=== PATIENT | female | born 1955 | race African-American/Black ===

== ENCOUNTER → 2016-09-21 | Outpatient (CLI) | payer BC ==
[~2016-09-21] MED LIST: ALBUTEROL SULFATE 0.083% NEB 2.5 MG/3 ML AMPUL NEB ONE
[2016-09-21 09:23] LABS: ARTERIAL BLOOD O2 SATURATION 94.9 % (94-98)
--- NOTE | 2016-09-22 11:24 | PULMONARY FUNCTION TEST ---
DATE OF SERVICE: 09/21/2016 THE VITAL CAPACITY IS SLIGHTLY DECREASED. THE EXPIRATORY FLOW RATES ARE MODERATELY DECREASED. THE FEV1/VC IS 66%, PREDICTED: 83% LUNG VOLUMES BY NITROGEN WASH OUT METHOD SHOW: TLC IS 58% OF PREDICTED FRC IS 77% OF PREDICTED RV IS 42% OF PREDICTED THE DLCO IS 11.7, 45% OF PREDICTED. THE RV/TLC RATIO IS 27% PREDICTED 38% AFTER BRONCHODILATOR, EXPIRATORY FLOW RATES SHOW NO SIGNIFICANT CHANGE. IMPRESSION: GOOD PATIENT EFFORT. DESPITE THE DECREASE IN FEV1/VC, THE REDUCED LUNG VOLUMES INDICATE A MODERATE RESTRICTIVE DEFECT. DIFFUSING CAPACITY IS SEVERELY DECREASED. CC: MICHELE MORRIS MD > EDGARDO
== END ==
LOC: RT 07:38
PROVIDERS: ATTEND Internal Medicine Pulmonary Disease
DX: R06.02 Shortness of breath (principal)
CPT/HCPCS: 36600; 82803; 94060; 94640; 94727; 94729; 94760

== ENCOUNTER → 2017-02-02 | Outpatient (CLI) | payer BC ==
--- NOTE | 2017-02-02 15:58 | RADIOLOGY REPORT (SQ) ---
EXAM DESCRIPTION: U/S THYROID/SFT TISS HD NECK COMPLETED DATE/TIME: 02/02/2017 2:12 pm REASON FOR STUDY: GOITER (E04.9) E04.9 NONTOXIC GOITER, UNSPECIFIED COMPARISON: Thyroid ultrasound 03/12/2008, 05/05/2016 CT chest 07/14/2015, 10/04/2015 TECHNIQUE: Dynamic and static villafuerte-scale images acquired of the thyroid gland. Selected additional c olor/power Doppler images recorded. All images stored to PACS. LIMITATIONS: None. FINDINGS: RIGHT LOBE: 5.5 cm in greatest length. Homogeneous echotexture. 1.3 x 1.1 cm upper pole colloid cyst. 1.4 x 1.2 cm lower pole colloid cyst. These are similar compared to studies dating to 2007 LEFT LOBE: 4.9 cm in greatest length. Homogeneous echotexture. 1.4 x 1.2 cm left lower pole nodule unchanged from 2007. 7 mm lower pole nodule unchanged from 2007. ISTHMUS: Normal size. Homogeneous echotexture. No cystic or solid masses. OTHER: No other significant finding. IMPRESSION: Stable right lobe thyroid colloid cysts and left lobe thyroid nodules. TECHNICAL DOCUMENTATION: JOB ID: [id number] [employer]- All Rights Reserved
== END ==
LOC: RAD 12:50
PROVIDERS: ATTEND Family Medicine
DX: E04.9 Nontoxic goiter, unspecified (principal)
CPT/HCPCS: 76536

== ENCOUNTER 2017-07-10 17:00 | Inpatient (IN) | payer BC ==
[2017-07-10] MEDS ORDERED: ACETAMINOPHEN 325 MG TABLET PO ONE (17:41)
[2017-07-10] MEDS ORDERED: NORMAL SALINE 1000 ML 1,000 ML IV ONE (17:41)
[2017-07-10] MEDS ORDERED: PIPERACILLIN/TAZOBACTAM 4.5 GM VIAL IV ONE (17:42)
--- NOTE | 2017-07-10 17:44 | ER Document Report ---
ED Medical Screen (RME) - General Chief Complaint: Fever Stated Complaint: FEVER AND WEAKNESS Time Seen by Provider: 07/10/17 17:41 Notes: one day of fever, cough, sob, halluc/ams. pt on cpap at home. nml sat for her is 90-94 per TRAVEL OUTSIDE OF THE [place] IN LAST 30 DAYS: No - Related Data Allergies/Adverse Reactions: Iodinated Contrast- Oral and IV Dye [Iodinated Contrast Media - IV Dye] Allergy (Severe, Verified 04/28/16 12:20) Chest pain pregabalin [From Lyrica] Allergy (Verified 11/18/15 01:46) trazodone [Trazodone] Allergy (Verified 11/18/15 01:46) bee sting Allergy (Uncoded 10/04/15 00:38) Past Medical History - Past Medical History Cardiac Medical History: Reports: Hx Hypertension Pulmonary Medical History: Reports: Hx Asthma, Hx COPD Endocrine Medical History: Reports: Hx Diabetes Mellitus Type 2 Renal/ Medical History: Denies: Hx Peritoneal Dialysis Psychiatric Medical History: Reports: Hx Depression Past Surgical History: Reports: Hx Breast Surgery - Immunizations Hx Diphtheria, Pertussis, Tetanus Vaccination: Yes Physical Exam - Vital signs Vitals: Temp Pulse Resp BP Pulse Ox 103.0 F H 102 H 20 117/43 L 88 L 07/10/17 17:20 07/10/17 17:20 07/10/17 17:20 07/10/17 17:20 07/10/17 17:20 Course - Vital Signs Vital signs: Temp Pulse Resp BP Pulse Ox 103.0 F H 102 H 20 117/43 L 88 L 07/10/17 17:20 07/10/17 17:20 07/10/17 17:20 07/10/17 17:20 07/10/17 17:20
--- NOTE | 2017-07-10 18:51 | ER Document Report ---
ED Fever - General Chief Complaint: Fever Stated Complaint: FEVER AND WEAKNESS Time Seen by Provider: 07/10/17 17:41 Mode of Arrival: Ambulatory Information source: Patient, Relative TRAVEL OUTSIDE OF THE [place] IN LAST 30 DAYS: No - HPI Patient complains to provider of: Fever, body aches, cough cold congestion, shortness of breath Onset: Other - 4-5 days Onset/Duration: Persistent Quality of pain: Achy Severity: Moderate Pain Level: 3 Context: Congestion, Cough Associated symptoms: Body/muscle aches, Chills, Nonproductive cough, Earache, Fever, Headache, Shortness of breath, Sore throat, Weakness Similar symptoms previously: Yes Recently seen / treated by doctor: Yes Notes: Patient is a 61-year-old female with multiple medical problems, presenting to the emergency room today complaining of fever, chills, body aches, shortness of breath with nonproductive cough, congestion, headache, sore throat, earache, symptoms have been going on for the past 4-5 days, she recently had a Simponi infusion for rheumatoid arthritis, she denies any sick contacts, no recent traveling, no chest pain, no abdominal pain, no nausea, vomiting or diarrhea, states she was tested for the flu 3 days ago and it was negative - Related Data Allergies/Adverse Reactions: Iodinated Contrast- Oral and IV Dye [Iodinated Contrast Media - IV Dye] Allergy (Severe, Verified 07/10/17 17:51) Chest pain pregabalin [From Lyrica] Allergy (Verified 07/10/17 17:51) trazodone [Trazodone] Allergy (Verified 07/10/17 17:51) bee sting Allergy (Uncoded 07/10/17 17:51) Home Medications: Current Home Medications Estrogens,Conjugated [Premarin 0.3 mg Tablet] 0.3 mg PO QHS 07/10/17 [History] Norethindrone Acetate [Aygestin 5 mg Tablet] 7.5 mg PO QHS 07/10/17 [History] Olmesartan Medoxomil [Benicar] 40 mg PO QAM 07/10/17 [History] Omeprazole 40 mg PO QAM 07/10/17 [History] Oxycodone HCl [Oxycontin Sr 10 mg Tablet] 10 mg PO Q12 07/10/17 [History] Oxycodone HCl/Acetaminophen [Oxycodone-Acetaminophen 10-325] 1 each PO Q6H PRN 07/10/17 [History] Past Medical History - General Information source: Patient - Social History Smoking Status: Former Smoker Frequency of alcohol use: None Drug Abuse: None Family History: Reviewed & Not Pertinent Patient has suicidal ideation: No Patient has homicidal ideation: No - Past Medical History Cardiac Medical History: Reports: Hx Hypertension Pulmonary Medical History: Reports: Hx Asthma, Hx COPD Endocrine Medical History: Reports: Hx Diabetes Mellitus Type 2 Renal/ Medical History: Denies: Hx Peritoneal Dialysis Psychiatric Medical History: Reports: Hx Depression Past Surgical History: Reports: Hx Breast Surgery - Immunizations Hx Diphtheria, Pertussis, Tetanus Vaccination: Yes Review of Systems - Review of Systems Constitutional: See HPI EENT: See HPI Cardiovascular: No symptoms reported Respiratory: See HPI Gastrointestinal: No symptoms reported Genitourinary: No symptoms reported Female Genitourinary: No symptoms reported Musculoskeletal: See HPI Skin: No symptoms reported Hematologic/Lymphatic: No symptoms reported Neurological/Psychological: See HPI -: Yes All other systems reviewed and negative Physical Exam - Vital signs Vitals: Temp Pulse Resp BP Pulse Ox 103.0 F H 102 H 20 117/43 L 88 L 07/10/17 17:20 07/10/17 17:20 07/10/17 17:20 07/10/17 17:20 07/10/17 17:20 Interpretation: Tachycardic, Hypoxic, Febrile - General General appearance: Alert In distress: Mild - HEENT Head: Normocephalic, Atraumatic Eyes: Normal Conjunctiva: Normal Eyelashes: Normal Pupils: PERRL Ears: Normal External canal: Normal Tympanic membrane: Normal Pharynx: Normal Neck: Normal - Respiratory Respiratory status: No respiratory distress Chest status: Nontender Breath sounds: Nonproductive cough, Wheezing Chest palpation: Normal - Cardiovascular Rhythm: Regular Heart sounds: Normal auscultation Murmur: No - Abdominal Inspection: Obese Distension: No distension Bowel sounds: Normal Tenderness: Nontender Organomegaly: No organomegaly - Back Back: Normal, Nontender - Extremities General upper extremity: Normal inspection, Nontender, Normal color, Normal ROM , Normal temperature General lower extremity: Normal inspection, Nontender, Normal color, Normal ROM , Normal temperature, Normal weight bearing. No: Joel's sign - Neurological Neuro grossly intact: Yes Cognition: Confused Orientation: Disoriented to events [place] Coma Scale Eye Opening: Spontaneous [place] Coma Scale Verbal: Confused [place] Coma Scale Motor: Obeys Commands [place] Coma Scale Total: 14 Speech: Normal Motor strength normal: LUE, RUE, LLE, RLE Sensory: Normal - Psychological Associated symptoms: Normal affect, Normal mood - Skin Skin Temperature: Warm Skin Moisture: Dry Skin Color: Normal Course - Re-evaluation Re-evalutation: 07/11/17 01:42 Patient with leukocytosis, acute renal insufficiency, hypokalemia, signs of urinary tract infection, discussed with primary care provider who agrees to admit for further evaluation and treatment - Vital Signs Vital signs: Temp Pulse Resp BP Pulse Ox 103.0 F H 102 H 18 111/93 H 98 07/10/17 17:20 07/10/17 17:20 07/11/17 01:15 07/11/17 01:15 07/11/17 01:15 - Laboratory Result Diagrams: 07/10/17 18:45 07/10/17 18:45 Laboratory results interpreted by me: 07/10/17 07/10/17 07/10/17 18:45 18:45 20:48 WBC 21.0 H RBC 3.06 L Hgb 9.1 L Hct 27.1 L RDW 16.3 H Seg Neutrophils % 81.3 H Lymphocytes % 8.5 L Absolute Neutrophils 17.1 H Absolute Monocytes 2.0 H Sodium 134.4 L Potassium 2.5 L* Chloride 97 L BUN 40 H Creatinine 2.39 H Est GFR ( Amer) 25 L Est GFR (Non-Af Amer) 20 L Glucose 150 H Calcium 7.8 L Total Bilirubin 1.4 H Direct Bilirubin 1.1 H AST 38 H Alkaline Phosphatase 163 H Albumin 3.1 L Urine Protein 100 H Urine Blood MODERATE H Urine Urobilinogen 4.0 H Ur Leukocyte Esterase LARGE H - Diagnostic Test Radiology reviewed: Image reviewed, Reports reviewed - EKG Interpretation by Me EKG shows normal: Sinus rhythm Rate: Normal Rhythm: NSR - Transfer of Care Care transferred to following provider: Dr. Perea Critical Care Note - Critical Care Note Total time excluding time spent on procedures (mins): 40 Comments: Patient with tachycardia, confusion, febrile, profound leukocytosis, hypokalemia and acute renal failure with signs of sepsis, admitted to IMCU for further evaluation and treatment Discharge - Discharge Clinical Impression: Acute renal insufficiency, Hypokalemia Urinary tract infection Qualifiers: Urinary tract infection type: site unspecified Hematuria presence: without hematuria Qualified Code(s): N39.0 - Urinary tract infection, site not specified Sepsis Qualifiers: Sepsis type: sepsis due to unspecified organism Qualified Code(s): A41.9 - Sepsis, unspecified organism Condition: Fair Disposition: ADMITTED INPATIENT Admitting Provider: [facility] Unit Admitted: [facility]
[2017-07-10 19:13] LABS: VENOUS BLOOD BASE EXCESS -0.1 mmol/L; VENOUS BLOOD PCO2 47.1 mmHg (35-63); VENOUS BLOOD PH 7.36 (7.30-7.42)
[2017-07-10 19:27] LABS: ABSOLUTE BASOPHILS # (AUTO) 0.1 10^3/uL (0.0-0.2); ABSOLUTE EOSINOPHILS # (AUTO) 0.1 10^3/uL (0.0-0.6); ABSOLUTE LYMPHOCYTES (AUTO) 1.8 10^3/uL (0.5-4.7); ABSOLUTE NEUT (AUTO) 17.1 10^3/uL (1.7-8.2); BASOPHILS % (AUTO) 0.3 % (0-2); EOSINOPHILS % (AUTO) 0.5 % (0-6); HEMATOCRIT 27.1 % (36.0-47.0); HEMOGLOBIN 9.1 g/dL (12.0-15.5); HGB HCT DIFFERENCE 0.2; LYMPHOCYTES % (AUTO) 8.5 % (13-45); MEAN CORPUSCULAR HEMOGLOBIN 29.9 pg (27.0-33.4); MEAN CORPUSCULAR HGB CONC 33.7 g/dL (32.0-36.0); MEAN CORPUSCULAR VOLUME 89 fl (80-97); MONOCYTES % (AUTO) 9.4 % (3-13); RED BLOOD COUNT 3.06 10^6/uL (3.72-5.28); RED CELL DISTRIBUTION WIDTH 16.3 % (11.5-14.0); SEGMENTED NEUTROPHILS % (AUTO) 81.3 % (42-78)
[2017-07-10 19:42] LABS: ALANINE AMINOTRANSFERASE 31 U/L (9-52); ALBUMIN 3.1 g/dL (3.5-5.0); ALKALINE PHOSPHATASE 163 U/L (38-126); ANION GAP 12 (5-19); ASPARTATE AMINO TRANSFERASE 38 U/L (14-36); BILIRUBIN,DIRECT 1.1 mg/dL (0.0-0.4); BILIRUBIN,TOTAL 1.4 mg/dL (0.2-1.3); BLOOD UREA NITROGEN 40 mg/dL (7-20); CALCIUM 7.8 mg/dL (8.4-10.2); CARBON DIOXIDE 25 mmol/L (22-30); CHLORIDE 97 mmol/L (98-107); CREATININE RESULT 2.39 mg/dL (0.52-1.25); GLUCOSE 150 mg/dL (75-110); SODIUM 134.4 mmol/L (137-145); TOTAL PROTEIN 6.5 g/dL (6.3-8.2)
--- NOTE | 2017-07-10 19:42 | RADIOLOGY REPORT (SQ) ---
EXAM DESCRIPTION: CHEST SINGLE VIEW COMPLETED DATE/TIME: 07/10/2017 7:35 pm REASON FOR STUDY: cough/fever COMPARISON: 04/26/2016 EXAM PARAMETERS: NUMBER OF VIEWS: One view. TECHNIQUE: Single frontal radiographic view of the chest acquired. RADIATION DOSE: NA LIMITATIONS: None. FINDINGS: LUNGS AND PLEURA: No opacities, masses or pneumothorax. No pleural effusion. MEDIASTINUM AND HILAR STRUCTURES: No masses. Contour normal. HEART AND VASCULAR STRUCTURES: Heart normal in size. Normal vasculature. BONES: No acute findings. HARDWARE: None in the chest. OTHER: No other significant finding. IMPRESSION: NO ACUTE RADIOGRAPHIC FINDING IN THE CHEST. TECHNICAL DOCUMENTATION: JOB ID: [id number] [employer]- All Rights Reserved
[2017-07-10 19:45] LABS: POTASSIUM 2.5 mmol/L (3.6-5.0)
[2017-07-10] MEDS: POTASSI CL 20 MEQ/50 ML RIDER 20 MEQ/50 ML RTUPB IV SCH ×2 (20:54→22:43)
[2017-07-10 21:07] LABS: AMORPHOUS SEDIMENT,URINE TRACE /HPF; APPEARANCE,URINE CLOUDY; BILIRUBIN,URINE NEGATIVE (NEGATIVE); GLUCOSE, URINE NEGATIVE (NEGATIVE); KETONES,URINE NEGATIVE (NEGATIVE); LEUKOCYTE ESTERASE,URINE LARGE (NEGATIVE); NITRITE,URINE NEGATIVE (NEGATIVE); PROTEIN,URINE 100 mg/dL (NEGATIVE); URINE SPECIFIC GRAVITY 1.013
[2017-07-10] MEDS ORDERED: CEFEPIME 1 GM/D5W RTU 1 GM/50 ML RTUPB IV ONE (22:04)
[2017-07-10] MEDS ORDERED: MAG HYDROX/AL HYDROX/SIMETH SUSP 30 ML UDCUP PO PRN (22:21)
[2017-07-10] MEDS ORDERED: IPRATROPIUM/ALBUTEROL 0.5-2.5 MG/3 ML AMPUL NEB PRN (22:21)
[2017-07-10] MEDS ORDERED: ONDANSETRON HCL INJ/PF 4 MG/2 ML SDV IV PRN (22:21)
[2017-07-10] MEDS ORDERED: DEXTROSE 40% GEL 15 GM TUBE PO PRN ×2 (22:26)
[2017-07-10] MEDS ORDERED: DEXTROSE 50%-WATER 25 GM/50 ML DISP.SYRIN IV PRN ×2 (22:26)
[2017-07-10] MEDS ORDERED: GLUCAGON,HUMAN RECOMB 1 MG INJ IM PRN (22:26)
[2017-07-10] MEDS ORDERED: INSULIN LISPRO 100 UNIT/ML 3 ML VIAL SUBCUT PRN (22:26)
[2017-07-10] MEDS ORDERED: POTASSIUM CHLORIDE 10 MEQ TABLET.SA PO ONE (22:29)
[2017-07-10] MEDS ORDERED: VANCOMYCIN HCL 0 MG in DEXTROSE 5%-WATER 250 ML IV NR (22:30)
[2017-07-10] MEDS ORDERED: VANCOMYCIN HCL 1,000 MG in DEXTROSE 5%-WATER 250 ML IV ONE (23:30)
--- NOTE | 2017-07-11 00:59 | RADIOLOGY REPORT (SQ) ---
EXAM DESCRIPTION: U/S ABDOMEN LIMITED W/O DOP COMPLETED DATE/TIME: 07/11/2017 12:34 am REASON FOR STUDY: pain COMPARISON: CT, 02/26/2016. MRI abdomen, 01/15/2016. TECHNIQUE: Dynamic and static grayscale images acquired of the abdomen and recorded on PACS. Additio nal selected color Doppler and spectral images recorded. LIMITATIONS: None. FINDINGS: PANCREAS: No masses. Visualized pancreatic duct normal caliber. LIVER: 21 cm mild hepatomegaly. Likely benign liver cysts measure up to 3.1 cm in 1.6 cm, not defini tively characterize ; no suspicious interval change compared with prior CT and MR examinations from 2 016. LIVER VASCULATURE: Normal directional flow of the main portal vein and hepatic veins. GALLBLADDER: No stones. Normal wall thickness. No pericholecystic fluid. ULTRASOUND-DETECTED ARGUETA'S SIGN: Negative. INTRAHEPATIC DUCTS AND COMMON DUCT: CBD and intrahepatic ducts normal caliber. No filling defects. INFERIOR VENA CAVA: Normal flow. AORTA: No aneurysm. RIGHT KIDNEY: Normal size. Normal echogenicity. No solid or suspicious masses. No hydronephrosis. No calcifications. PERITONEAL AND RIGHT PLEURAL SPACE: No ascites or effusions. OTHER: No other significant findings. IMPRESSION: No acute findings. TECHNICAL DOCUMENTATION: JOB ID: [id number] [employer]- All Rights Reserved
[2017-07-11] MEDS ORDERED: VANCOMYCIN HCL INJ 1000 MG VIAL ONE (01:17)
[2017-07-11] MEDS: POTASSI CL 40 MEQ/NS 1L 1,000 ML IV PRN ×3 (02:15→18:47)
[2017-07-11 05:37] LABS: HEMATOCRIT 26.8 % (36.0-47.0); HGB HCT DIFFERENCE 0.2; MEAN CORPUSCULAR HEMOGLOBIN 30.1 pg (27.0-33.4); MEAN CORPUSCULAR HGB CONC 33.4 g/dL (32.0-36.0); MEAN CORPUSCULAR VOLUME 90 fl (80-97); RED BLOOD COUNT 2.98 10^6/uL (3.72-5.28); RED CELL DISTRIBUTION WIDTH 17.1 % (11.5-14.0)
[2017-07-11 06:22] LABS: BASOPHILS % (MANUAL) 0 % (0-2); EOSINOPHILS % (MANUAL) 2 % (0-6); LYMPHOCYTES % (MANUAL) 8 % (13-45); TOTAL CELLS COUNTED 100
[2017-07-11 06:24] LABS: ANISOCYTOSIS 1+; HYPOCHROMASIA SLIGHT; TOXIC GRANULATION SLIGHT; TOXIC VACUOLATION PRESENT
[2017-07-11] MEDS: LANSOPRAZOLE 15 MG TAB.RAP.DR PO SCH ×2 (06:30→17:09)
[2017-07-11] MEDS: HEPARIN SOD (PORCINE) 5,000 UNIT/ML 1 ML SYRINGE SUBCUT SCH ×3 (06:31→22:21)
[2017-07-11 07:05] LABS: ALANINE AMINOTRANSFERASE 44 U/L (9-52); ALBUMIN 2.8 g/dL (3.5-5.0); ALKALINE PHOSPHATASE 151 U/L (38-126); ANION GAP 14 (5-19); ASPARTATE AMINO TRANSFERASE 39 U/L (14-36); BILIRUBIN,DIRECT 1.3 mg/dL (0.0-0.4); BILIRUBIN,TOTAL 1.4 mg/dL (0.2-1.3); BLOOD UREA NITROGEN 39 mg/dL (7-20); CALCIUM 7.2 mg/dL (8.4-10.2); CARBON DIOXIDE 22 mmol/L (22-30); CHLORIDE 105 mmol/L (98-107); CREATININE RESULT 2.24 mg/dL (0.52-1.25); GLUCOSE 115 mg/dL (75-110); MAGNESIUM 2.5 mg/dL (1.6-2.3); SODIUM 140.7 mmol/L (137-145); TOTAL PROTEIN 5.5 g/dL (6.3-8.2)
[2017-07-11 07:18] LABS: POTASSIUM 3.6 mmol/L (3.6-5.0)
--- NOTE | 2017-07-11 07:58 | EKG REPORT ---
SEVERITY:- BORDERLINE ECG - SINUS RHYTHM BORDERLINE PROLONGED QT INTERVAL : Confirmed by: Misael Coleman MD 11-Jul-2017 07:58:03
[2017-07-11] MEDS ORDERED: (PENDING PHARMACY ID) (Olmesartan Medoxomil [Benicar] 40 MG) PO SCH (08:00)
[2017-07-11] MEDS: LOSARTAN POTASSIUM 50 MG TABLET PO SCH (08:17)
[2017-07-11] MEDS: OXYCODONE-ACETAMINOPHEN 5-325 MG TABLET PO PRN ×2 (09:04→22:24)
[2017-07-11 09:43] LABS: FOLATE > 20.00 ng/mL (>2.76)
[2017-07-11] MEDS: CEFEPIME 2 GM/D5W RTU 2 GM/50 ML RTUPB IV SCH (09:53)
[2017-07-11] MEDS: CLOPIDOGREL BISULFATE 75 MG TABLET PO SCH (09:54)
[2017-07-11] MEDS: AMLODIPINE BESYLATE 5 MG TABLET PO SCH ×2 (09:54→10:14)
[2017-07-11] MEDS: FLUOXETINE HCL 20 MG CAPSULE PO SCH (09:55)
[2017-07-11] MEDS: DOCUSATE SODIUM 100 MG CAPSULE PO SCH (09:55)
[2017-07-11] MEDS ORDERED: CEFEPIME 2 GM/D5W RTU 2 GM/50 ML RTUPB IV SCH (10:00)
[2017-07-11] MEDS ORDERED: FLUOXETINE HCL PO SCH (10:00)
--- NOTE | 2017-07-11 10:30 | PDOC H&P ---
History of Present Illness Admission Date/PCP: 07/10/17 22:21 JUSTINE LANDAVERDE MD Patient complains of: Fever and chills History of Present Illness: TOMMY LUEVANO is a 61 year old female This 61-year-old female with a significant history of rheumatoid arthritis and multiple joint issueAnd patient is currently taking the Simponi injections per Dr. Rice the rheumatologistAnd injection was given the 4 days backAccording to the the patient started feeling weak and the patient started developing the fever and chills and nonproductive coughAnd in the emergency departments patient's blood count was elevated up to 21,000 and patient have a fever 103 and patient will most likely urosepsisPatient received the broad- spectrum IV antibiotic and admitting in the IMCU When I saw the patient is alert awake oriented 3 and in no distress patient's denied any chest pain denied any shortness of the breath Patient initial blood culture and urine culture both positive for gram-negative organism Patient have a significant history of the asthma COPD and also have ongoing problem with this joint in the muscles which patients failed for the methotrexate and Humira injections in the recently started this new medicine simponi Patient's otherwise denied any other complaints Past Medical History Cardiac Medical History: Reports: Hypertension Pulmonary Medical History: Reports: Asthma, Chronic Obstructive Pulmonary Disease (COPD) Endocrine Medical History: Reports: Diabetes Mellitus Type 2 GI Medical History: Reports: Gastroesophageal Reflux Disease Musculoskeltal Medical History: Reports: Arthritis, Other Musculoskeletal History Note: Rheumatoid arthritis Psychiatric Medical History: Reports: Depression Social History Smoking Status: Former Smoker Frequency of Alcohol Use: None Hx Recreational Drug Use: No Hx Prescription Drug Abuse: No Family History Family History: Reviewed & Not Pertinent Parental Family History Reviewed: Yes Children Family History Reviewed: Yes Sibling(s) Family History Reviewed.: Yes Medication/Allergy Home Medications: Fluoxetine HCl [Prozac] 1 cap PO DAILY 07/10/15 Amlodipine Besylate [Norvasc 5 mg Tablet] 5 mg PO Q12 #60 tablet 07/20/15 Aspirin [Ecotrin 81 mg EC Tablet] 81 mg PO DAILY #0 tabec 11/20/15 Atorvastatin Calcium [Lipitor 20 mg Tablet] 20 mg PO QHS #30 tablet 11/20/15 Clopidogrel Bisulfate [Plavix 75 mg Tablet] 75 mg PO DAILY #30 tablet 11/20/15 Gabapentin 600 mg PO TID #0 tablet 11/20/15 Hydrochlorothiazide 12.5 mg PO DAILY #30 tablet 11/20/15 Estrogens,Conjugated [Premarin 0.3 mg Tablet] 0.3 mg PO QHS 07/10/17 Norethindrone Acetate [Aygestin 5 mg Tablet] 7.5 mg PO QHS 07/10/17 Olmesartan Medoxomil [Benicar] 40 mg PO QAM 07/10/17 Omeprazole 40 mg PO QAM 07/10/17 Oxycodone HCl [Oxycontin Sr 10 mg Tablet] 10 mg PO Q12 07/10/17 Oxycodone HCl/Acetaminophen [Oxycodone-Acetaminophen 10-325] 1 each PO Q6H PRN 07/10/17 Albuterol Sulfate [Proair Hfa Inhalation Aerosol 8.5 gm Mdi] 1 puff IH Q4 PRN Temazepam [Restoril 7.5 mg Capsule] 7.5 mg PO HSP PRN 07/11/17 Umeclidinium Hinckley [Incruse Ellipta] 62.5 mcg IH DAILY PRN 07/11/17 Allergies/Adverse Reactions: Iodinated Contrast- Oral and IV Dye [Iodinated Contrast Media - IV Dye] Allergy (Severe, Verified 07/10/17 17:51) Chest pain pregabalin [From Lyrica] Allergy (Verified 07/10/17 17:51) trazodone [Trazodone] Allergy (Verified 07/10/17 17:51) bee sting Allergy (Uncoded 07/10/17 17:51) Review of Systems Constitutional: PRESENT: anorexia, chills, fatigue, night sweats, weakness. ABSENT: fever(s), headache(s), weight gain, weight loss Eyes: ABSENT: visual disturbances Ears: ABSENT: hearing changes Cardiovascular: ABSENT: chest pain, dyspnea on exertion, edema, orthropnea, palpitations Respiratory: PRESENT: cough. ABSENT: hemoptysis Gastrointestinal: PRESENT: abdominal pain. ABSENT: constipation, diarrhea, hematemesis, hematochezia, nausea, vomiting Genitourinary: ABSENT: dysuria, hematuria Musculoskeletal: PRESENT: joint swelling, muscle weakness Integumentary: ABSENT: rash, wounds Neurological: ABSENT: abnormal gait, abnormal speech, confusion, dizziness, focal weakness, syncope Psychiatric: ABSENT: anxiety, depression, homidical ideation, suicidal ideation Endocrine: ABSENT: cold intolerance, heat intolerance, menstrual abnormalities, polydipsia, polyuria Hematologic/Lymphatic: ABSENT: easy bleeding, easy bruising, lymphadenopathy Physical Exam Vital Signs: Temp Pulse Resp BP Pulse Ox 98.7 F 102 H 28 H 119/56 L 97 07/11/17 06:42 07/10/17 17:20 07/11/17 10:06 07/11/17 10:06 07/11/17 10:06 General appearance: PRESENT: no acute distress, well-developed, well-nourished Head exam: PRESENT: atraumatic, normocephalic Eye exam: PRESENT: conjunctiva pink, EOMI, PERRLA. ABSENT: scleral icterus Ear exam: PRESENT: normal external ear exam Mouth exam: PRESENT: moist, tongue midline Neck exam: PRESENT: full ROM. ABSENT: carotid bruit, JVD, lymphadenopathy, thyromegaly Respiratory exam: PRESENT: clear to auscultation carmencita Cardiovascular exam: PRESENT: RRR. ABSENT: diastolic murmur, rubs, systolic murmur Pulses: PRESENT: normal dorsalis pedis pul, +2 pedal pulses bilateral Vascular exam: PRESENT: normal capillary refill GI/Abdominal exam: PRESENT: normal bowel sounds, soft. ABSENT: distended, guarding, mass, organolmegaly, rebound, tenderness Rectal exam: PRESENT: deferred Extremities exam: ABSENT: full ROM, left AKA, right AKA, left BKA, right BKA, calf tenderness, joint swelling, tenderness, other Neurological exam: PRESENT: alert, awake, oriented to person, oriented to place , oriented to time, oriented to situation, CN II-XII grossly intact. ABSENT: motor sensory deficit Psychiatric exam: PRESENT: appropriate affect, depressed, normal mood. ABSENT: homicidal ideation, suicidal ideation Skin exam: PRESENT: dry, intact, warm. ABSENT: cyanosis, rash Results Laboratory Results: 07/11/17 05:20 07/11/17 06:40 07/10/17 07/11/17 07/11/17 23:07 05:20 06:40 WBC 20.0 H RBC 2.98 L Hgb 9.0 L Hct 26.8 L MCV 90 MCH 30.1 MCHC 33.4 RDW 17.1 H Plt Count 186 Seg Neutrophils % Not Reportable Lymphocytes % Not Reportable Monocytes % Not Reportable Eosinophils % Not Reportable Basophils % Not Reportable Absolute Neutrophils Not Reportable Absolute Lymphocytes Not Reportable Absolute Monocytes Not Reportable Absolute Eosinophils Not Reportable Absolute Basophils Not Reportable Retic Count (auto) Absolute Retic Sodium 140.7 Potassium 3.6 D Chloride 105 Carbon Dioxide 22 Anion Gap 14 BUN 39 H Creatinine 2.24 H Est GFR ( Amer) 27 L Est GFR (Non-Af Amer) 22 L Glucose 115 H Lactic Acid 0.7 Calcium 7.2 L Magnesium 2.5 H Iron TIBC % Saturation Ferritin Total Bilirubin 1.4 H AST 39 H ALT 44 Alkaline Phosphatase 151 H Total Protein 5.5 L Albumin 2.8 L Vitamin B12 Folate 07/11/17 07/11/17 06:40 06:40 WBC RBC Hgb Hct MCV MCH MCHC RDW Plt Count Seg Neutrophils % Lymphocytes % Monocytes % Eosinophils % Basophils % Absolute Neutrophils Absolute Lymphocytes Absolute Monocytes Absolute Eosinophils Absolute Basophils Retic Count (auto) 0.22 L Absolute Retic 0.007 L Sodium Potassium Chloride Carbon Dioxide Anion Gap BUN Creatinine Est GFR ( Amer) Est GFR (Non-Af Amer) Glucose Lactic Acid Calcium Magnesium Iron 15.2 L TIBC 221 L % Saturation 7 Ferritin 324.00 H Total Bilirubin AST ALT Alkaline Phosphatase Total Protein Albumin Vitamin B12 977.0 H Folate > 20.00 Impressions: Chest X-Ray 07/10/17 17:41 IMPRESSION: NO ACUTE RADIOGRAPHIC FINDING IN THE CHEST. Abdomen Ultrasound 07/10/17 20:26 IMPRESSION: No acute findings. Assessment & Plan - Diagnosis (1) Gram negative sepsis Is this a current diagnosis for this admission?: Yes Plan: Most likely from urinary tract infections will start the patient on the broad- spectrum antibiotics and wait for the culture and sensitivity continues to IV fluid (2) Urinary tract bacterial infections Is this a current diagnosis for this admission?: Yes Plan: Start the patient on the broad-spectrum IV antibiotic but the Marquez catheter (3) Chronic obstructive pulmonary disease Is this a current diagnosis for this admission?: Yes Plan: Continues to DuoNeb nebulizer (4) Rheumatoid arthritis Qualifiers: Laterality: unspecified laterality Is this a current diagnosis for this admission?: Yes Plan: Patient's currently follow with the manager print and currently the Simponi injections (5) Anemia Qualifiers: Anemia type: other cause Is this a current diagnosis for this admission?: Yes Plan: Due to the chronic disease from rheumatoid arthritis we will get the iron study (6) Acute renal insufficiency Is this a current diagnosis for this admission?: Yes Plan: Most likely due to the dehydration and the sepsis continues to IV fluid (7) Hypokalemia Is this a current diagnosis for this admission?: Yes Plan: Replace the potassium (8) Hypertension Qualifiers: Hypertension type: essential hypertension Qualified Code(s): I10 - Essential (primary) hypertension Is this a current diagnosis for this admission?: Yes Plan: Currently all stable - Time Time Spent: 50 to 70 Minutes Medications reviewed and adjusted accordingly: Yes Anticipated discharge: Home Within: Other - Inpatient Certification Medical Necessity: Need Close Monitoring Due to Risk of Patient Decompensation, Need For IV Fluids, Need for IV Antibiotics Post Hospital Care: D/C Engineering Director Documentation - Plan Summary Plan Summary: Put the patient in IMCU start the patient on broad-spectrum antibiotic continues to monitor the patient Very extensive discussion with the patient and her regarding the patient 's current conditions with ongoing gram-negative sepsis
--- NOTE | 2017-07-11 12:49 | RADIOLOGY REPORT (SQ) ---
EXAM DESCRIPTION: CT ABD/PELVIS NO ORAL OR IV COMPLETED DATE/TIME: 07/11/2017 12:25 pm REASON FOR STUDY: abd pain/adrenal tumor COMPARISON: 08/06/2013 TECHNIQUE: CT scan of the abdomen and pelvis performed without intravenous or oral contrast. Images reviewed with lung, soft tissue, and bone windows. Reconstructed coronal and sagittal MPR images revi ewed. All images stored on PACS. All CT scanners at this facility use dose modulation, iterative reconstruction, and/or weight based d osing when appropriate to reduce radiation dose to as low as reasonably achievable (ALARA). [facility]: Dose Right [facility]: CareDose [facility]: Dose Right [facility]: Teradose 4D [facility]: [email or web address] RADIATION DOSE: Up-to-date CT equipment and radiation dose reduction techniques were employed. CTDIv ol: 21.1 mGy. DLP: 1138 mGy-cm.mGy. LIMITATIONS: None. FINDINGS: LOWER CHEST: No significant findings. No nodules or infiltrates. NON-CONTRASTED LIVER, SPLEEN, ADRENALS: Stable hepatic cysts. Spleen is normal. Stable low-density left adrenal nodule. PANCREAS: No masses. No peripancreatic inflammatory changes. GALLBLADDER: No identified stones by CT criteria. No inflammatory changes to suggest cholecystitis. RIGHT KIDNEY AND URETER: No suspicious masses. Assessment limited by lack of IV contrast. No signif icant calcifications. No hydronephrosis or hydroureter. LEFT KIDNEY AND URETER: No suspicious masses. Assessment limited by lack of IV contrast. No signifi cant calcifications. No hydronephrosis or hydroureter. AORTA AND RETROPERITONEUM: No aneurysm. No retroperitoneal masses or adenopathy. BOWEL AND PERITONEAL CAVITY: No obvious masses or inflammatory changes. No free fluid. APPENDIX: The appendix appears to lie adjacent to the liver and is normal. PELVIS, BLADDER, AND ABDOMINAL WALL:A catheter is in the urinary bladder so the bladder cannot be esvin luated. No pelvic masses. No fluid. BONES: No significant findings. OTHER: No other significant finding. IMPRESSION: Stable low-density left adrenal nodule likely representing an adenoma. There is no acut e abnormality in the abdomen pelvis. There are no findings that explain the patient's pain. COMMENT: Quality ID # [id number]: Final reports with documentation of one or more dose reduction techniques (e.g., Automated exposure control, adjustment of the mA and/or kV according to patient size, use of iterative reconstruction technique) TECHNICAL DOCUMENTATION: JOB ID: [id number] [employer] [facility] [employer]- All Rights Reserved
[2017-07-11] MEDS: GABAPENTIN 300 MG CAPSULE PO SCH ×2 (15:10→22:25)
[2017-07-11] MEDS: ACETAMINOPHEN 325 MG TABLET PO PRN (17:29)
[2017-07-11] MEDS ORDERED: VANCOMYCIN HCL 1,000 MG in DEXTROSE 5%-WATER 250 ML IV SCH (22:00)
[2017-07-12] MEDS: LANSOPRAZOLE 15 MG TAB.RAP.DR PO SCH ×2 (05:27→16:12)
[2017-07-12] MEDS: GABAPENTIN 300 MG CAPSULE PO SCH ×3 (05:27→22:27)
[2017-07-12] MEDS: HEPARIN SOD (PORCINE) 5,000 UNIT/ML 1 ML SYRINGE SUBCUT SCH ×3 (05:27→22:24)
[2017-07-12] MEDS: OXYCODONE-ACETAMINOPHEN 5-325 MG TABLET PO PRN ×3 (05:28→20:57)
[2017-07-12 07:04] LABS: ABSOLUTE LYMPHOCYTES (AUTO) 1.2 10^3/uL (0.5-4.7); ABSOLUTE MONOCYTES (AUTO) 1.8 10^3/uL (0.1-1.4); ABSOLUTE NEUT (AUTO) 14.8 10^3/uL (1.7-8.2); BASOPHILS % (AUTO) 0.1 % (0-2); EOSINOPHILS % (AUTO) 0.1 % (0-6); HEMATOCRIT 25.4 % (36.0-47.0); HEMOGLOBIN 8.6 g/dL (12.0-15.5); HGB HCT DIFFERENCE 0.4; LYMPHOCYTES % (AUTO) 6.9 % (13-45); MEAN CORPUSCULAR HGB CONC 33.9 g/dL (32.0-36.0); MEAN CORPUSCULAR VOLUME 89 fl (80-97); RED BLOOD COUNT 2.86 10^6/uL (3.72-5.28); RED CELL DISTRIBUTION WIDTH 16.7 % (11.5-14.0); SEGMENTED NEUTROPHILS % (AUTO) 82.9 % (42-78); WHITE BLOOD COUNT 17.9 10^3/uL (4.0-10.5)
--- NOTE | 2017-07-12 08:20 | PDOC CONSULTATION ---
Consultation Consult Date: 07/12/17 Attending physician:: JUSTINE LANDAVERDE Consult reason:: Anemia, leukocytosis, adrenal mass History of Present Illness Admission Date/PCP: 07/10/17 22:21 JUSTINE LANDAVERDE MD Patient complains of: Fever, chills, weakness, confusion History of Present Illness: 61-year-old female with one-week history of fevers, chills, ultimately had some increasing infusion, and was brought in, she does have history of known rheumatoid arthritis, has had history of being on methotrexate and most recently on anti-TNF agent SIMPONI, she was found to have clinical symptoms of sepsis upon presentation, and was found to have blood and urine cultures both positive for gram-negative rods, just identified as E. coli pansensitive. Patient has been on cefepime and vancomycin, and thus far is had about 24 hours of antibiotics. Still febrile this morning. In review of her blood counts her hemoglobin is 8.6, and review of iron studies her ferritin is 300, saturation is 7%, B12 and folate are normal. White count initially was 21 and his come down to 17. Primarily neutrophilia. Past Medical History Cardiac Medical History: Reports: Hypertension Pulmonary Medical History: Reports: Asthma, Chronic Obstructive Pulmonary Disease (COPD) Endocrine Medical History: Reports: Diabetes Mellitus Type 2 GI Medical History: Reports: Gastroesophageal Reflux Disease Musculoskeltal Medical History: Reports: Arthritis, Other Psychiatric Medical History: Reports: Depression Past Surgical History Past Surgical History: Reports: None Social History Information Source: Patient Smoking Status: Former Smoker Cigarettes Packs Per Day: 1 Number of Years Smokin Last Time Smoked: 2014 Frequency of Alcohol Use: None Hx Recreational Drug Use: No Hx Prescription Drug Abuse: No - Advance Directive Resuscitation Status: Full Code Family History Family History: Reviewed & Not Pertinent Parental Family History Reviewed: Yes Children Family History Reviewed: Yes Sibling(s) Family History Reviewed.: Yes Medication/Allergy Home Medications: Fluoxetine HCl [Prozac] 1 cap PO DAILY 07/10/15 Amlodipine Besylate [Norvasc 5 mg Tablet] 5 mg PO Q12 #60 tablet 07/20/15 Aspirin [Ecotrin 81 mg EC Tablet] 81 mg PO DAILY #0 tabec 11/20/15 Atorvastatin Calcium [Lipitor 20 mg Tablet] 20 mg PO QHS #30 tablet 11/20/15 Clopidogrel Bisulfate [Plavix 75 mg Tablet] 75 mg PO DAILY #30 tablet 11/20/15 Gabapentin 600 mg PO TID #0 tablet 11/20/15 Hydrochlorothiazide 12.5 mg PO DAILY #30 tablet 11/20/15 Estrogens,Conjugated [Premarin 0.3 mg Tablet] 0.3 mg PO QHS 07/10/17 Norethindrone Acetate [Aygestin 5 mg Tablet] 7.5 mg PO QHS 07/10/17 Olmesartan Medoxomil [Benicar] 40 mg PO QAM 07/10/17 Omeprazole 40 mg PO QAM 07/10/17 Oxycodone HCl [Oxycontin Sr 10 mg Tablet] 10 mg PO Q12 07/10/17 Oxycodone HCl/Acetaminophen [Oxycodone-Acetaminophen 10-325] 1 each PO Q6H PRN 07/10/17 Albuterol Sulfate [Proair Hfa Inhalation Aerosol 8.5 gm Mdi] 1 puff IH Q4 PRN Temazepam [Restoril 7.5 mg Capsule] 7.5 mg PO HSP PRN 07/11/17 Umeclidinium Yulan [Incruse Ellipta] 62.5 mcg IH DAILY PRN 07/11/17 Allergies/Adverse Reactions: Iodinated Contrast- Oral and IV Dye [Iodinated Contrast Media - IV Dye] Allergy (Severe, Verified 07/10/17 17:51) Chest pain pregabalin [From Lyrica] Allergy (Verified 07/10/17 17:51) trazodone [Trazodone] Allergy (Verified 07/10/17 17:51) bee sting Allergy (Uncoded 07/10/17 17:51) Review of Systems Constitutional: ABSENT: chills, fever(s), headache(s), weight gain, weight loss Eyes: ABSENT: visual disturbances Ears: ABSENT: hearing changes Cardiovascular: ABSENT: chest pain, dyspnea on exertion, edema, orthropnea, palpitations Respiratory: ABSENT: cough, hemoptysis Gastrointestinal: ABSENT: abdominal pain, constipation, diarrhea, hematemesis, hematochezia, nausea, vomiting Genitourinary: ABSENT: dysuria, hematuria Musculoskeletal: ABSENT: joint swelling Integumentary: ABSENT: rash, wounds Neurological: ABSENT: abnormal gait, abnormal speech, confusion, dizziness, focal weakness, syncope Psychiatric: ABSENT: anxiety, depression, homidical ideation, suicidal ideation Endocrine: ABSENT: cold intolerance, heat intolerance, polydipsia, polyuria Hematologic/Lymphatic: ABSENT: easy bleeding, easy bruising Physical Exam Vital Signs: Temp Pulse Resp BP Pulse Ox 100.4 F 92 19 117/78 97 07/12/17 05:17 07/12/17 07:00 07/12/17 05:17 07/12/17 05:17 07/12/17 05:17 Intake & Output 07/11/17 07/12/17 07/13/17 06:59 06:59 06:59 Intake Total 3476 Output Total 2600 Balance 876 Weight 110.4 kg General appearance: PRESENT: no acute distress, well-developed, well-nourished Head exam: PRESENT: atraumatic, normocephalic Eye exam: PRESENT: conjunctiva pink, EOMI, PERRLA. ABSENT: scleral icterus Ear exam: PRESENT: normal external ear exam Mouth exam: PRESENT: moist, tongue midline Neck exam: ABSENT: carotid bruit, JVD, lymphadenopathy, thyromegaly Respiratory exam: PRESENT: clear to auscultation carmencita. ABSENT: rales, rhonchi, wheezes Cardiovascular exam: PRESENT: RRR. ABSENT: diastolic murmur, rubs, systolic murmur Pulses: PRESENT: normal dorsalis pedis pul Vascular exam: PRESENT: normal capillary refill GI/Abdominal exam: PRESENT: normal bowel sounds, soft. ABSENT: distended, guarding, mass, organolmegaly, rebound, tenderness Rectal exam: PRESENT: deferred Extremities exam: PRESENT: full ROM. ABSENT: calf tenderness, clubbing, pedal edema Neurological exam: PRESENT: alert, awake, oriented to person, oriented to place , oriented to time, oriented to situation, CN II-XII grossly intact. ABSENT: motor sensory deficit Psychiatric exam: PRESENT: appropriate affect, normal mood. ABSENT: homicidal ideation, suicidal ideation Skin exam: PRESENT: dry, intact, warm. ABSENT: cyanosis, rash Results Laboratory Results: 07/12/17 06:13 07/11/17 06:40 07/11/17 07/11/17 07/12/17 06:40 06:40 06:13 WBC 17.9 H RBC 2.86 L Hgb 8.6 L Hct 25.4 L MCV 89 MCH 30.0 MCHC 33.9 RDW 16.7 H Plt Count 223 Seg Neutrophils % 82.9 H Lymphocytes % 6.9 L Monocytes % 10.0 Eosinophils % 0.1 Basophils % 0.1 Absolute Neutrophils 14.8 H Absolute Lymphocytes 1.2 Absolute Monocytes 1.8 H Absolute Eosinophils 0.0 Absolute Basophils 0.0 Retic Count (auto) 0.22 L Absolute Retic 0.007 L Magnesium Iron 15.2 L TIBC 221 L % Saturation 7 Ferritin 324.00 H Vitamin B12 977.0 H Folate > 20.00 07/12/17 06:13 WBC RBC Hgb Hct MCV MCH MCHC RDW Plt Count Seg Neutrophils % Lymphocytes % Monocytes % Eosinophils % Basophils % Absolute Neutrophils Absolute Lymphocytes Absolute Monocytes Absolute Eosinophils Absolute Basophils Retic Count (auto) Absolute Retic Magnesium 2.2 Iron TIBC % Saturation Ferritin Vitamin B12 Folate Impressions: Chest X-Ray 07/10/17 17:41 IMPRESSION: NO ACUTE RADIOGRAPHIC FINDING IN THE CHEST. Abdomen Ultrasound 07/10/17 20:26 IMPRESSION: No acute findings. Abdomen/Pelvis CT 07/11/17 00:00 IMPRESSION: Stable low-density left adrenal nodule likely representing an adenoma. There is no acute abnormality in the abdomen pelvis. There are no findings that explain the patient's pain. Assessment & Plan - Diagnosis (1) Anemia Qualifiers: Anemia type: other cause Other causes of anemia: chronic disease, other Qualified Code(s): D63.8 - Anemia in other chronic diseases classified elsewhere Is this a current diagnosis for this admission?: Yes Plan: Patient with known anemia of chronic disease, ferritin is 300 so unlikely iron deficiency, today no intervention, but if hemoglobin falls under 8 it would be reasonable to transfuse her 1-2 units of packed red blood cells. She will be myelosuppressive for some time both from immunosuppressive agents that she is on as well as her severe sepsis. (2) Neutrophilic leukocytosis Is this a current diagnosis for this admission?: Yes Plan: Will improve with treatment, secondary to sepsis. (3) Adrenal mass Is this a current diagnosis for this admission?: Yes Plan: CT imaging with adrenal mass, but stable in comparison to imaging done several years ago, so will be adrenal adenoma. Nothing further to do with this. - Time Time Spent: Greater than 70 Minutes Critical Time spent with patient: 35 or more minutes - Inpatient Certification Based on my medical assessment, after consideration of the patient's comorbidities, presenting symptoms, or acuity I expect that the services needed warrant INPATIENT care.: Yes I certify that my determination is in accordance with my understanding of Medicare's requirements for reasonable and necessary INPATIENT services [42 CFR 412.3e].: Yes Medical Necessity: Need For IV Fluids, Need For Continuous Telemetry Monitoring , Need for IV Antibiotics
[2017-07-12] MEDS: ACETAMINOPHEN 325 MG TABLET PO PRN ×2 (08:29→16:12)
[2017-07-12] MEDS: LOSARTAN POTASSIUM 50 MG TABLET PO SCH (08:29)
[2017-07-12] MEDS: NORMAL SALINE 1000 ML 1,000 ML IV PRN ×2 (08:34→21:13)
[2017-07-12 09:17] LABS: ANION GAP 12 (5-19); BLOOD UREA NITROGEN 29 mg/dL (7-20); CALCIUM 7.2 mg/dL (8.4-10.2); CARBON DIOXIDE 17 mmol/L (22-30); CHLORIDE 113 mmol/L (98-107); CREATININE RESULT 1.69 mg/dL (0.52-1.25); GLUCOSE 131 mg/dL (75-110); POTASSIUM 4.2 mmol/L (3.6-5.0); SODIUM 141.8 mmol/L (137-145)
[2017-07-12] MEDS: CEFEPIME 2 GM/D5W RTU 2 GM/50 ML RTUPB IV SCH (09:49)
[2017-07-12] MEDS: AMLODIPINE BESYLATE 5 MG TABLET PO SCH ×2 (09:50→22:27)
[2017-07-12] MEDS: CLOPIDOGREL BISULFATE 75 MG TABLET PO SCH (09:50)
[2017-07-12] MEDS: DOCUSATE SODIUM 100 MG CAPSULE PO SCH (09:50)
[2017-07-12] MEDS: FLUOXETINE HCL 20 MG CAPSULE PO SCH (09:51)
--- NOTE | 2017-07-12 16:14 | PDOC PROGRESS REPORT ---
Subjective Progress Note for:: 07/12/17 Subjective:: Patient is currently doing fair still patient is febrile but the patient's fever is coming down Send urine cultures shows E. coli in the blood is also same organism Patient's denied any chest pain denied any shortness of the breath Patient's denied any abdominal pain Physical Exam Vital Signs: Temp Pulse Resp BP Pulse Ox 98.7 F 77 18 127/66 H 100 07/12/17 11:54 07/12/17 11:54 07/12/17 11:54 07/12/17 11:54 07/12/17 11:54 Intake & Output 07/11/17 07/12/17 07/13/17 06:59 06:59 06:59 Intake Total 5226 Output Total 2600 Balance 2626 Weight 110.4 kg General appearance: PRESENT: no acute distress, well-developed, well-nourished Head exam: PRESENT: atraumatic, normocephalic Eye exam: PRESENT: conjunctiva pink, EOMI, PERRLA. ABSENT: scleral icterus Ear exam: PRESENT: normal external ear exam Mouth exam: PRESENT: moist, tongue midline Neck exam: PRESENT: full ROM. ABSENT: carotid bruit, JVD, lymphadenopathy, thyromegaly Respiratory exam: PRESENT: clear to auscultation carmencita Cardiovascular exam: PRESENT: RRR. ABSENT: diastolic murmur, rubs, systolic murmur Pulses: PRESENT: normal dorsalis pedis pul, +2 pedal pulses bilateral Vascular exam: PRESENT: normal capillary refill GI/Abdominal exam: PRESENT: normal bowel sounds, soft. ABSENT: distended, guarding, mass, organolmegaly, rebound, tenderness Rectal exam: PRESENT: deferred Neurological exam: PRESENT: alert, awake, oriented to person, oriented to place , oriented to time, oriented to situation, CN II-XII grossly intact. ABSENT: motor sensory deficit Psychiatric exam: PRESENT: appropriate affect, normal mood. ABSENT: homicidal ideation, suicidal ideation Skin exam: PRESENT: dry, intact, warm. ABSENT: cyanosis, rash Results Laboratory Results: 07/12/17 06:13 07/12/17 06:13 07/11/17 07/12/17 07/12/17 06:40 06:13 06:13 WBC 17.9 H RBC 2.86 L Hgb 8.6 L Hct 25.4 L MCV 89 MCH 30.0 MCHC 33.9 RDW 16.7 H Plt Count 223 Seg Neutrophils % 82.9 H Lymphocytes % 6.9 L Monocytes % 10.0 Eosinophils % 0.1 Basophils % 0.1 Absolute Neutrophils 14.8 H Absolute Lymphocytes 1.2 Absolute Monocytes 1.8 H Absolute Eosinophils 0.0 Absolute Basophils 0.0 Sodium Potassium Chloride Carbon Dioxide Anion Gap BUN Creatinine Est GFR ( Amer) Est GFR (Non-Af Amer) Glucose Calcium Magnesium 2.2 Transferrin 140 L 07/12/17 06:13 WBC RBC Hgb Hct MCV MCH MCHC RDW Plt Count Seg Neutrophils % Lymphocytes % Monocytes % Eosinophils % Basophils % Absolute Neutrophils Absolute Lymphocytes Absolute Monocytes Absolute Eosinophils Absolute Basophils Sodium 141.8 Potassium 4.2 Chloride 113 H Carbon Dioxide 17 L Anion Gap 12 BUN 29 H Creatinine 1.69 H Est GFR ( Amer) 37 L Est GFR (Non-Af Amer) 31 L Glucose 131 H Calcium 7.2 L Magnesium Transferrin Impressions: Chest X-Ray 07/10/17 17:41 IMPRESSION: NO ACUTE RADIOGRAPHIC FINDING IN THE CHEST. Abdomen Ultrasound 07/10/17 20:26 IMPRESSION: No acute findings. Abdomen/Pelvis CT 07/11/17 00:00 IMPRESSION: Stable low-density left adrenal nodule likely representing an adenoma. There is no acute abnormality in the abdomen pelvis. There are no findings that explain the patient's pain. Assessment & Plan - Diagnosis (1) Gram negative sepsis Is this a current diagnosis for this admission?: Yes Plan: E. coli gram-negative sepsis will DC the vancomycin's continues to cefepime (2) Urinary tract bacterial infections Is this a current diagnosis for this admission?: Yes Plan: As above continues antibiotic and continues IV fluid (3) Chronic obstructive pulmonary disease Is this a current diagnosis for this admission?: Yes Plan: Continues to DuoNeb nebulizer (4) Rheumatoid arthritis Qualifiers: Laterality: unspecified laterality Is this a current diagnosis for this admission?: Yes Plan: Patient's currently follow with the coil spring assembler and currently the Simponi injections (5) Anemia Qualifiers: Anemia type: other cause Other causes of anemia: chronic disease, other Qualified Code(s): D63.8 - Anemia in other chronic diseases classified elsewhere Is this a current diagnosis for this admission?: Yes Plan: Discussed with the computer specialist and suggest the patient's might need a blood transfusionsHemoglobin go below 8 (6) Acute renal insufficiency Is this a current diagnosis for this admission?: Yes Plan: Continues IV fluid (7) Hypokalemia Is this a current diagnosis for this admission?: Yes Plan: Currently all resolved (8) Hypertension Qualifiers: Hypertension type: essential hypertension Qualified Code(s): I10 - Essential (primary) hypertension Is this a current diagnosis for this admission?: Yes Plan: Currently all stable - Time Time Spent with patient: 15-24 minutes Medications reviewed and adjusted accordingly: Yes Anticipated discharge: Home Within: Other - Inpatient Certification Medical Necessity: Need For IV Fluids, Need for IV Antibiotics 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
[2017-07-13] MEDS: ACETAMINOPHEN 325 MG TABLET PO PRN ×2 (05:56→16:19)
[2017-07-13] MEDS: LANSOPRAZOLE 15 MG TAB.RAP.DR PO SCH ×2 (06:15→16:19)
[2017-07-13] MEDS: HEPARIN SOD (PORCINE) 5,000 UNIT/ML 1 ML SYRINGE SUBCUT SCH ×3 (06:15→21:37)
[2017-07-13] MEDS: GABAPENTIN 300 MG CAPSULE PO SCH ×3 (06:15→21:37)
[2017-07-13 06:59] LABS: ABSOLUTE BASOPHILS # (AUTO) 0.1 10^3/uL (0.0-0.2); ABSOLUTE LYMPHOCYTES (AUTO) 1.3 10^3/uL (0.5-4.7); ABSOLUTE MONOCYTES (AUTO) 1.4 10^3/uL (0.1-1.4); ABSOLUTE NEUT (AUTO) 15.5 10^3/uL (1.7-8.2); BASOPHILS % (AUTO) 0.3 % (0-2); EOSINOPHILS % (AUTO) 0.2 % (0-6); HEMATOCRIT 26.7 % (36.0-47.0); HGB HCT DIFFERENCE 0.3; LYMPHOCYTES % (AUTO) 6.9 % (13-45); MEAN CORPUSCULAR HEMOGLOBIN 29.6 pg (27.0-33.4); MEAN CORPUSCULAR HGB CONC 33.6 g/dL (32.0-36.0); MEAN CORPUSCULAR VOLUME 88 fl (80-97); MONOCYTES % (AUTO) 7.5 % (3-13); RED BLOOD COUNT 3.02 10^6/uL (3.72-5.28); RED CELL DISTRIBUTION WIDTH 16.6 % (11.5-14.0); SEGMENTED NEUTROPHILS % (AUTO) 85.1 % (42-78); WHITE BLOOD COUNT 18.3 10^3/uL (4.0-10.5)
[2017-07-13 07:27] LABS: ANION GAP 13 (5-19); BLOOD UREA NITROGEN 20 mg/dL (7-20); CALCIUM 7.9 mg/dL (8.4-10.2); CARBON DIOXIDE 18 mmol/L (22-30); CHLORIDE 114 mmol/L (98-107); CREATININE RESULT 1.08 mg/dL (0.52-1.25); GLUCOSE 119 mg/dL (75-110); MAGNESIUM 1.9 mg/dL (1.6-2.3); SODIUM 144.6 mmol/L (137-145)
[2017-07-13] MEDS ORDERED: NORMAL SALINE 1000 ML 1,000 ML IV PRN (07:36)
[2017-07-13] MEDS: LOSARTAN POTASSIUM 50 MG TABLET PO SCH (07:50)
--- NOTE | 2017-07-13 08:04 | PDOC PROGRESS REPORT ---
Subjective Progress Note for:: 07/13/17 Subjective:: Patient feels a little bit better today, but this morning once again she had fever of 100.9, nursing felt she was still a bit confused trying to get out of the bed this morning. Physical Exam Vital Signs: Temp Pulse Resp BP Pulse Ox 98.3 F 87 18 158/64 H 96 07/13/17 07:14 07/13/17 07:14 07/13/17 07:14 07/13/17 07:14 07/13/17 07:14 Intake & Output 07/12/17 07/13/17 07/14/17 06:59 06:59 06:59 Intake Total 5226 4508 Output Total 2600 4300 Balance 2626 208 Weight 110.4 kg 115.7 kg General appearance: PRESENT: no acute distress, well-developed, well-nourished Head exam: PRESENT: atraumatic, normocephalic Eye exam: PRESENT: conjunctiva pink, EOMI, PERRLA. ABSENT: scleral icterus Ear exam: PRESENT: normal external ear exam Mouth exam: PRESENT: moist, tongue midline Neck exam: ABSENT: carotid bruit, JVD, lymphadenopathy, thyromegaly Respiratory exam: PRESENT: clear to auscultation carmencita. ABSENT: rales, rhonchi, wheezes Cardiovascular exam: PRESENT: RRR. ABSENT: diastolic murmur, rubs, systolic murmur Pulses: PRESENT: normal dorsalis pedis pul Vascular exam: PRESENT: normal capillary refill GI/Abdominal exam: PRESENT: normal bowel sounds, soft. ABSENT: distended, guarding, mass, organolmegaly, rebound, tenderness Rectal exam: PRESENT: deferred Extremities exam: PRESENT: full ROM. ABSENT: calf tenderness, clubbing, pedal edema Neurological exam: PRESENT: alert, awake, oriented to person, oriented to place , oriented to time, oriented to situation, CN II-XII grossly intact. ABSENT: motor sensory deficit Psychiatric exam: PRESENT: appropriate affect, normal mood. ABSENT: homicidal ideation, suicidal ideation Skin exam: PRESENT: dry, intact, warm. ABSENT: cyanosis, rash Results Laboratory Results: 07/13/17 06:11 07/13/17 06:11 07/11/17 07/12/17 07/13/17 06:40 06:13 06:11 WBC RBC Hgb Hct MCV MCH MCHC RDW Plt Count Seg Neutrophils % Lymphocytes % Monocytes % Eosinophils % Basophils % Absolute Neutrophils Absolute Lymphocytes Absolute Monocytes Absolute Eosinophils Absolute Basophils Sodium 141.8 144.6 Potassium 4.2 4.0 Chloride 113 H 114 H Carbon Dioxide 17 L 18 L Anion Gap 12 13 BUN 29 H 20 Creatinine 1.69 H 1.08 Est GFR ( Amer) 37 L > 60 Est GFR (Non-Af Amer) 31 L 51 L Glucose 131 H 119 H Calcium 7.2 L 7.9 L Magnesium 1.9 Transferrin 140 L 07/13/17 06:11 WBC 18.3 H RBC 3.02 L Hgb 9.0 L Hct 26.7 L MCV 88 MCH 29.6 MCHC 33.6 RDW 16.6 H Plt Count 271 Seg Neutrophils % 85.1 H Lymphocytes % 6.9 L Monocytes % 7.5 Eosinophils % 0.2 Basophils % 0.3 Absolute Neutrophils 15.5 H Absolute Lymphocytes 1.3 Absolute Monocytes 1.4 Absolute Eosinophils 0.0 Absolute Basophils 0.1 Sodium Potassium Chloride Carbon Dioxide Anion Gap BUN Creatinine Est GFR ( Amer) Est GFR (Non-Af Amer) Glucose Calcium Magnesium Transferrin Impressions: Chest X-Ray 07/10/17 17:41 IMPRESSION: NO ACUTE RADIOGRAPHIC FINDING IN THE CHEST. Abdomen Ultrasound 07/10/17 20:26 IMPRESSION: No acute findings. Abdomen/Pelvis CT 07/11/17 00:00 IMPRESSION: Stable low-density left adrenal nodule likely representing an adenoma. There is no acute abnormality in the abdomen pelvis. There are no findings that explain the patient's pain. Assessment & Plan - Diagnosis (1) Anemia Qualifiers: Anemia type: other cause Other causes of anemia: chronic disease, other Qualified Code(s): D63.8 - Anemia in other chronic diseases classified elsewhere Is this a current diagnosis for this admission?: Yes Plan: Anemia of chronic disease, hemoglobin is 9, continue to monitor. (2) Neutrophilic leukocytosis Is this a current diagnosis for this admission?: Yes Plan: Secondary to sepsis, will continue to be elevated for the next few days, hopefully fever and sepsis will improve. (3) Adrenal mass Is this a current diagnosis for this admission?: Yes Plan: No further workup needed. - Time Time Spent with patient: 15-24 minutes Critical Time spent with patient: 15-24 minutes - Inpatient Certification Based on my medical assessment, after consideration of the patient's comorbidities, presenting symptoms, or acuity I expect that the services needed warrant INPATIENT care.: Yes I certify that my determination is in accordance with my understanding of Medicare's requirements for reasonable and necessary INPATIENT services [42 CFR 412.3e].: Yes Medical Necessity: Need for IV Antibiotics
--- NOTE | 2017-07-13 08:11 | PDOC PROGRESS REPORT ---
Subjective Progress Note for:: 07/13/17 Subjective:: Patient is currently doing sameSince still have a fever 100.1 Patient's denied any chest pain denied any shortness of the breath Patient's chief complaint for muscle pain and weakness Denied any headache denied any nausea no vomiting Physical Exam Vital Signs: Temp Pulse Resp BP Pulse Ox 98.3 F 87 18 158/64 H 96 07/13/17 07:14 07/13/17 07:14 07/13/17 07:14 07/13/17 07:14 07/13/17 07:14 Intake & Output 07/12/17 07/13/17 07/14/17 06:59 06:59 06:59 Intake Total 5226 4508 Output Total 2600 4300 Balance 2626 208 Weight 110.4 kg 115.7 kg General appearance: PRESENT: no acute distress, well-developed, well-nourished Head exam: PRESENT: atraumatic, normocephalic Eye exam: PRESENT: conjunctiva pink, EOMI, PERRLA. ABSENT: scleral icterus Ear exam: PRESENT: normal external ear exam Mouth exam: PRESENT: moist, tongue midline Neck exam: PRESENT: full ROM. ABSENT: carotid bruit, JVD, lymphadenopathy, thyromegaly Respiratory exam: PRESENT: clear to auscultation carmencita Cardiovascular exam: PRESENT: RRR. ABSENT: diastolic murmur, rubs, systolic murmur Pulses: PRESENT: normal dorsalis pedis pul, +2 pedal pulses bilateral Vascular exam: PRESENT: normal capillary refill GI/Abdominal exam: PRESENT: normal bowel sounds, soft. ABSENT: distended, guarding, mass, organolmegaly, rebound, tenderness Rectal exam: PRESENT: deferred Extremities exam: PRESENT: full ROM. ABSENT: pedal edema Neurological exam: PRESENT: alert, awake, oriented to person, oriented to place , oriented to time, oriented to situation, CN II-XII grossly intact. ABSENT: motor sensory deficit Psychiatric exam: PRESENT: appropriate affect, normal mood. ABSENT: homicidal ideation, suicidal ideation Skin exam: PRESENT: dry, intact, warm. ABSENT: cyanosis, rash Results Laboratory Results: 07/13/17 06:11 07/13/17 06:11 07/11/17 07/12/17 07/13/17 06:40 06:13 06:11 WBC RBC Hgb Hct MCV MCH MCHC RDW Plt Count Seg Neutrophils % Lymphocytes % Monocytes % Eosinophils % Basophils % Absolute Neutrophils Absolute Lymphocytes Absolute Monocytes Absolute Eosinophils Absolute Basophils Sodium 141.8 144.6 Potassium 4.2 4.0 Chloride 113 H 114 H Carbon Dioxide 17 L 18 L Anion Gap 12 13 BUN 29 H 20 Creatinine 1.69 H 1.08 Est GFR ( Amer) 37 L > 60 Est GFR (Non-Af Amer) 31 L 51 L Glucose 131 H 119 H Calcium 7.2 L 7.9 L Magnesium 1.9 Transferrin 140 L 07/13/17 06:11 WBC 18.3 H RBC 3.02 L Hgb 9.0 L Hct 26.7 L MCV 88 MCH 29.6 MCHC 33.6 RDW 16.6 H Plt Count 271 Seg Neutrophils % 85.1 H Lymphocytes % 6.9 L Monocytes % 7.5 Eosinophils % 0.2 Basophils % 0.3 Absolute Neutrophils 15.5 H Absolute Lymphocytes 1.3 Absolute Monocytes 1.4 Absolute Eosinophils 0.0 Absolute Basophils 0.1 Sodium Potassium Chloride Carbon Dioxide Anion Gap BUN Creatinine Est GFR ( Amer) Est GFR (Non-Af Amer) Glucose Calcium Magnesium Transferrin Impressions: Chest X-Ray 07/10/17 17:41 IMPRESSION: NO ACUTE RADIOGRAPHIC FINDING IN THE CHEST. Abdomen Ultrasound 07/10/17 20:26 IMPRESSION: No acute findings. Abdomen/Pelvis CT 07/11/17 00:00 IMPRESSION: Stable low-density left adrenal nodule likely representing an adenoma. There is no acute abnormality in the abdomen pelvis. There are no findings that explain the patient's pain. Assessment & Plan - Diagnosis (1) Gram negative sepsis Is this a current diagnosis for this admission?: Yes Plan: Continues to IV cefepime will repeat the blood culture and urine culture again (2) Urinary tract bacterial infections Is this a current diagnosis for this admission?: Yes Plan: Continues to IV cefepime (3) Chronic obstructive pulmonary disease Is this a current diagnosis for this admission?: Yes Plan: Sj to current medications (4) Rheumatoid arthritis Qualifiers: Laterality: unspecified laterality Is this a current diagnosis for this admission?: Yes Plan: Patients currently see her Dr. Rice as outpatient (5) Anemia Qualifiers: Anemia type: other cause Other causes of anemia: chronic disease, other Qualified Code(s): D63.8 - Anemia in other chronic diseases classified elsewhere Is this a current diagnosis for this admission?: Yes Plan: Discussed with the licensing officer and suggest the patient's might need a blood transfusionsHemoglobin go below 8 (6) Acute renal insufficiency Is this a current diagnosis for this admission?: Yes Plan: Currently all resolving continues IV fluid (7) Hypokalemia Is this a current diagnosis for this admission?: Yes Plan: Currently all resolved (8) Hypertension Qualifiers: Hypertension type: essential hypertension Qualified Code(s): I10 - Essential (primary) hypertension Is this a current diagnosis for this admission?: Yes Plan: Currently all stable - Time Time Spent with patient: 15-24 minutes Anticipated discharge: Home Within: Other - Inpatient Certification Medical Necessity: Need Close Monitoring Due to Risk of Patient Decompensation, Need For IV Fluids, Need for IV Antibiotics Post Hospital Care: D/C Director Of Compliance Documentation - Plan Summary Plan Summary: Discussed with the patient and about the patient's current conditions we will repeat the culture continues to IV antibiotic and discussed with the nursing staff to get the physical therapy
[2017-07-13] MEDS: FLUOXETINE HCL 20 MG CAPSULE PO SCH (10:38)
[2017-07-13] MEDS: DOCUSATE SODIUM 100 MG CAPSULE PO SCH (10:38)
[2017-07-13] MEDS: CIPROFLOXACIN HCL 500 MG TABLET PO SCH ×2 (10:38→21:37)
[2017-07-13] MEDS: CEFEPIME 2 GM/D5W RTU 2 GM/50 ML RTUPB IV SCH (10:38)
[2017-07-13] MEDS: CLOPIDOGREL BISULFATE 75 MG TABLET PO SCH (10:38)
[2017-07-13] MEDS: AMLODIPINE BESYLATE 5 MG TABLET PO SCH ×2 (10:38→21:37)
[2017-07-13] MEDS: OXYCODONE-ACETAMINOPHEN 5-325 MG TABLET PO PRN ×2 (13:51→19:45)
[2017-07-13 14:04] LABS: PROTHROMBIN TIME 13.4 SEC (11.4-15.4)
--- NOTE | 2017-07-13 16:09 | RADIOLOGY REPORT (SQ) ---
EXAM DESCRIPTION: PICC INSERTION; FLUORO/CV PLACEMENT; U/S GUIDE FOR VASCULAR ACCESS COMPLETED DATE/TIME: 07/13/2017 3:41 pm REASON FOR STUDY: No IV access; IV ACCESS COMPARISON: CT angio chest 04/27/2016 AP chest July 2017 FLUOROSCOPY TIME: 36 seconds 1 digital chest fluoroscopic image, 1 ultrasound image saved to PACS. TECHNIQUE: Fluoroscopic and ultrasound guided PICC placement. LIMITATIONS: None. PROCEDURE: After written consent and assessment were obtained, the patient was brought into the fluo roscopy room and place supine on the table. Ultrasound was used on the patient's left arm for PICC a ccess. The left arm was prepped and draped in a sterile fashion along with the ultrasound probe. The entry site was anesthetized with 1% lidocaine. A 21 gauge 7 cm needle was advanced through the skin a nd into the basilic vein under live ultrasound guidance. An ultrasound image was saved to PACS confi rming access site. A .018 guide wire was then inserted through the needle and into the venous system . The needle was the removed and an 11 blade scalpel was used to make a 1cm skin incision. A 5 fr pe el-away sheath was advanced over the wire and into the venous system. A measurement was then made usi ng the existing wire and live fluoroscopic guidance. The wire was then removed and the trimmed. The P ICC was advanced through the peel-away sheath and into the venous system. The peel-away sheath was re moved and the catheter was adhered to the patients arm with a stat lock. The catheter was then aspira savanah and flushed and a sterile bandage was placed over the access site. A fluoroscopic spot image was saved to PACS confirming the catheter tip within the superior vena cava. IMPRESSION: SUCCESSFUL PLACEMENT OF A 5 FR DUAL LUMEN 46 CM PICC IN THE LEFT BASILIC VEIN. COMMENT: Patient medication list reviewed: Yes- Quality ID# [id number]:Eligible professional attests to doc umenting in the medical record they obtained, updated, or reviewed the patient's current medications. . Quality ID 145: Final reports for procedures using fluoroscopy that document radiation exposure satinder shawn, or exposure time and number of fluorographic images (if radiation exposure indices are not avail able) Quality ID #76: The patient was prepped and draped using maximum sterile barrier technique including cap, mask, sterile gown, sterile gloves, a large sterile sheet, hand hygiene, and 2% Chlorhexidine fo r cutaneous antisepsis. When ultrasound is used, sterile ultrasound techniques are followed requiring sterile gel and sterile probes. TECHNICAL DOCUMENTATION: JOB ID: [id number] 1865 [employer]- All Rights Reserved
[2017-07-14] MEDS: OXYCODONE-ACETAMINOPHEN 5-325 MG TABLET PO PRN ×3 (04:12→19:43)
[2017-07-14 05:26] LABS: ANION GAP 11 (5-19); BLOOD UREA NITROGEN 13 mg/dL (7-20); CALCIUM 7.5 mg/dL (8.4-10.2); CARBON DIOXIDE 20 mmol/L (22-30); CHLORIDE 115 mmol/L (98-107); CREATININE RESULT 0.81 mg/dL (0.52-1.25); GLUCOSE 113 mg/dL (75-110); POTASSIUM 3.6 mmol/L (3.6-5.0); SODIUM 145.6 mmol/L (137-145)
[2017-07-14] MEDS: LANSOPRAZOLE 15 MG TAB.RAP.DR PO SCH ×2 (05:49→16:41)
[2017-07-14] MEDS: GABAPENTIN 300 MG CAPSULE PO SCH ×3 (05:49→21:05)
[2017-07-14] MEDS: HEPARIN SOD (PORCINE) 5,000 UNIT/ML 1 ML SYRINGE SUBCUT SCH ×3 (06:00→21:05)
--- NOTE | 2017-07-14 08:20 | PDOC PROGRESS REPORT ---
Subjective Progress Note for:: 07/14/17 Subjective:: Fever seemed to have calmed down, patient feeling better less confused, still with fever of 99 however Physical Exam Vital Signs: Temp Pulse Resp BP Pulse Ox 99.1 F 74 18 122/74 98 07/14/17 07:35 07/14/17 07:35 07/14/17 07:35 07/14/17 07:35 07/14/17 07:35 Intake & Output 07/13/17 07/14/17 07/15/17 06:59 06:59 06:59 Intake Total 4508 4213 Output Total 4300 4200 Balance 208 13 Weight 115.7 kg 113 kg General appearance: PRESENT: no acute distress, well-developed, well-nourished Head exam: PRESENT: atraumatic, normocephalic Eye exam: PRESENT: conjunctiva pink, EOMI, PERRLA. ABSENT: scleral icterus Ear exam: PRESENT: normal external ear exam Mouth exam: PRESENT: moist, tongue midline Neck exam: ABSENT: carotid bruit, JVD, lymphadenopathy, thyromegaly Respiratory exam: PRESENT: clear to auscultation carmencita. ABSENT: rales, rhonchi, wheezes Cardiovascular exam: PRESENT: RRR. ABSENT: diastolic murmur, rubs, systolic murmur Pulses: PRESENT: normal dorsalis pedis pul Vascular exam: PRESENT: normal capillary refill GI/Abdominal exam: PRESENT: normal bowel sounds, soft. ABSENT: distended, guarding, mass, organolmegaly, rebound, tenderness Rectal exam: PRESENT: deferred Extremities exam: PRESENT: full ROM. ABSENT: calf tenderness, clubbing, pedal edema Neurological exam: PRESENT: alert, awake, oriented to person, oriented to place , oriented to time, oriented to situation, CN II-XII grossly intact. ABSENT: motor sensory deficit Psychiatric exam: PRESENT: appropriate affect, normal mood. ABSENT: homicidal ideation, suicidal ideation Skin exam: PRESENT: dry, intact, warm. ABSENT: cyanosis, rash Results Laboratory Results: 07/13/17 06:11 07/14/17 04:30 07/14/17 04:30 Sodium 145.6 H Potassium 3.6 Chloride 115 H Carbon Dioxide 20 L Anion Gap 11 BUN 13 Creatinine 0.81 Est GFR ( Amer) > 60 Est GFR (Non-Af Amer) > 60 Glucose 113 H Calcium 7.5 L Impressions: Chest X-Ray 07/10/17 17:41 IMPRESSION: NO ACUTE RADIOGRAPHIC FINDING IN THE CHEST. Abdomen Ultrasound 07/10/17 20:26 IMPRESSION: No acute findings. Abdomen/Pelvis CT 07/11/17 00:00 IMPRESSION: Stable low-density left adrenal nodule likely representing an adenoma. There is no acute abnormality in the abdomen pelvis. There are no findings that explain the patient's pain. Guidance Fluoroscopy 07/13/17 00:00 IMPRESSION: SUCCESSFUL PLACEMENT OF A 5 FR DUAL LUMEN 46 CM PICC IN THE LEFT BASILIC VEIN. Interventional Vascular Procedure 07/13/17 00:00 IMPRESSION: SUCCESSFUL PLACEMENT OF A 5 FR DUAL LUMEN 46 CM PICC IN THE LEFT BASILIC VEIN. PICC Line Insertion 07/13/17 00:00 IMPRESSION: SUCCESSFUL PLACEMENT OF A 5 FR DUAL LUMEN 46 CM PICC IN THE LEFT BASILIC VEIN. Assessment & Plan - Diagnosis (1) Anemia Qualifiers: Anemia type: other cause Other causes of anemia: chronic disease, other Qualified Code(s): D63.8 - Anemia in other chronic diseases classified elsewhere Is this a current diagnosis for this admission?: Yes Plan: Stable (2) Neutrophilic leukocytosis Is this a current diagnosis for this admission?: Yes Plan: Improved (3) Adrenal mass Is this a current diagnosis for this admission?: Yes Plan: No further workup - Time Disposition: We will sign off, thank you for the opportunity to assist in patient care, please call with any questions
[2017-07-14] MEDS: CEFEPIME 1 GM/D5W RTU 1 GM/50 ML RTUPB IV SCH ×2 (10:08→21:05)
[2017-07-14] MEDS: CLOPIDOGREL BISULFATE 75 MG TABLET PO SCH (10:09)
[2017-07-14] MEDS: AMLODIPINE BESYLATE 5 MG TABLET PO SCH ×2 (10:09→21:05)
[2017-07-14] MEDS: CIPROFLOXACIN HCL 500 MG TABLET PO SCH ×2 (10:09→21:05)
[2017-07-14] MEDS: LOSARTAN POTASSIUM 50 MG TABLET PO SCH (10:10)
[2017-07-14] MEDS: FLUOXETINE HCL 20 MG CAPSULE PO SCH (10:10)
[2017-07-14] MEDS: DOCUSATE SODIUM 100 MG CAPSULE PO SCH (10:10)
--- NOTE | 2017-07-14 13:24 | PDOC PROGRESS REPORT ---
Subjective Progress Note for:: 07/14/17 Subjective:: Patient is currently doing fair patient's fever is also coming down Patient's denied any chest pain without any shortness of the breath Since repeat blood culture urine culture is still pending Patients have a PICC line placed yesterday Physical Exam Vital Signs: Temp Pulse Resp BP Pulse Ox 99.4 F 86 18 126/93 H 100 07/14/17 11:28 07/14/17 11:28 07/14/17 11:28 07/14/17 11:28 07/14/17 11:28 Intake & Output 07/13/17 07/14/17 07/15/17 06:59 06:59 06:59 Intake Total 4508 4213 575 Output Total 4300 4200 1200 Balance 208 13 -625 Weight 115.7 kg 113 kg General appearance: PRESENT: no acute distress, well-developed, well-nourished Head exam: PRESENT: atraumatic, normocephalic Eye exam: PRESENT: conjunctiva pink, EOMI, PERRLA. ABSENT: scleral icterus Ear exam: PRESENT: normal external ear exam Mouth exam: PRESENT: moist, tongue midline Neck exam: PRESENT: full ROM. ABSENT: carotid bruit, JVD, lymphadenopathy, thyromegaly Respiratory exam: PRESENT: clear to auscultation carmencita Cardiovascular exam: PRESENT: RRR. ABSENT: diastolic murmur, rubs, systolic murmur Pulses: PRESENT: normal dorsalis pedis pul, +2 pedal pulses bilateral Vascular exam: PRESENT: normal capillary refill GI/Abdominal exam: PRESENT: normal bowel sounds, soft. ABSENT: distended, guarding, mass, organolmegaly, rebound, tenderness Rectal exam: PRESENT: deferred Neurological exam: PRESENT: alert, awake, oriented to person, oriented to place , oriented to time, oriented to situation, CN II-XII grossly intact. ABSENT: motor sensory deficit Psychiatric exam: PRESENT: appropriate affect, normal mood. ABSENT: homicidal ideation, suicidal ideation Skin exam: PRESENT: dry, intact, warm. ABSENT: cyanosis, rash Results Laboratory Results: 07/13/17 06:11 07/14/17 04:30 07/14/17 04:30 Sodium 145.6 H Potassium 3.6 Chloride 115 H Carbon Dioxide 20 L Anion Gap 11 BUN 13 Creatinine 0.81 Est GFR ( Amer) > 60 Est GFR (Non-Af Amer) > 60 Glucose 113 H Calcium 7.5 L Impressions: Chest X-Ray 07/10/17 17:41 IMPRESSION: NO ACUTE RADIOGRAPHIC FINDING IN THE CHEST. Abdomen Ultrasound 07/10/17 20:26 IMPRESSION: No acute findings. Abdomen/Pelvis CT 07/11/17 00:00 IMPRESSION: Stable low-density left adrenal nodule likely representing an adenoma. There is no acute abnormality in the abdomen pelvis. There are no findings that explain the patient's pain. Guidance Fluoroscopy 07/13/17 00:00 IMPRESSION: SUCCESSFUL PLACEMENT OF A 5 FR DUAL LUMEN 46 CM PICC IN THE LEFT BASILIC VEIN. Interventional Vascular Procedure 07/13/17 00:00 IMPRESSION: SUCCESSFUL PLACEMENT OF A 5 FR DUAL LUMEN 46 CM PICC IN THE LEFT BASILIC VEIN. PICC Line Insertion 07/13/17 00:00 IMPRESSION: SUCCESSFUL PLACEMENT OF A 5 FR DUAL LUMEN 46 CM PICC IN THE LEFT BASILIC VEIN. Assessment & Plan - Diagnosis (1) Gram negative sepsis Is this a current diagnosis for this admission?: Yes Plan: Continues IV cefepime (2) Urinary tract bacterial infections Is this a current diagnosis for this admission?: Yes Plan: Continues to IV cefepime (3) Chronic obstructive pulmonary disease Is this a current diagnosis for this admission?: Yes Plan: Sj to current medications (4) Rheumatoid arthritis Qualifiers: Laterality: unspecified laterality Is this a current diagnosis for this admission?: Yes Plan: Since currently see a printing supervisor as outpatients (5) Anemia Qualifiers: Anemia type: other cause Other causes of anemia: chronic disease, other Qualified Code(s): D63.8 - Anemia in other chronic diseases classified elsewhere Is this a current diagnosis for this admission?: Yes Plan: Discussed with the saw superintendent and suggest the patient's might need a blood transfusionsHemoglobin go below 8 (6) Acute renal insufficiency Is this a current diagnosis for this admission?: Yes Plan: Currently all resolving continues IV fluid (7) Hypokalemia Is this a current diagnosis for this admission?: Yes Plan: Currently all resolved (8) Hypertension Qualifiers: Hypertension type: essential hypertension Qualified Code(s): I10 - Essential (primary) hypertension Is this a current diagnosis for this admission?: Yes Plan: Currently all stable - Time Time Spent with patient: 15-24 minutes Medications reviewed and adjusted accordingly: Yes Anticipated discharge: Home Within: Other - Inpatient Certification Medical Necessity: Need Close Monitoring Due to Risk of Patient Decompensation, Need for IV Antibiotics Post Hospital Care: D/C Humanities Teacher Documentation - Plan Summary Plan Summary: Plan is continuous IV cefepime and continues to physical therapy
[2017-07-14] MEDS: BISACODYL 10 MG SUPP.RECT PR PRN (16:33)
[2017-07-15] MEDS: OXYCODONE-ACETAMINOPHEN 5-325 MG TABLET PO PRN ×3 (03:34→21:46)
[2017-07-15 05:25] LABS: ANION GAP 11 (5-19); BLOOD UREA NITROGEN 12 mg/dL (7-20); CALCIUM 8.2 mg/dL (8.4-10.2); CARBON DIOXIDE 24 mmol/L (22-30); CHLORIDE 111 mmol/L (98-107); CREATININE RESULT 0.85 mg/dL (0.52-1.25); GLUCOSE 127 mg/dL (75-110); POTASSIUM 3.7 mmol/L (3.6-5.0); SODIUM 146.3 mmol/L (137-145)
[2017-07-15] MEDS: HEPARIN SOD (PORCINE) 5,000 UNIT/ML 1 ML SYRINGE SUBCUT SCH ×3 (05:54→21:36)
[2017-07-15] MEDS: GABAPENTIN 300 MG CAPSULE PO SCH ×3 (05:54→21:37)
[2017-07-15] MEDS: LANSOPRAZOLE 15 MG TAB.RAP.DR PO SCH ×2 (05:54→16:39)
[2017-07-15 06:07] LABS: ABSOLUTE BASOPHILS # (AUTO) 0.1 10^3/uL (0.0-0.2); ABSOLUTE LYMPHOCYTES (AUTO) 1.7 10^3/uL (0.5-4.7); ABSOLUTE MONOCYTES (AUTO) 1.1 10^3/uL (0.1-1.4); ABSOLUTE NEUT (AUTO) 13.1 10^3/uL (1.7-8.2); BASOPHILS % (AUTO) 0.3 % (0-2); EOSINOPHILS % (AUTO) 0.3 % (0-6); HEMATOCRIT 24.4 % (36.0-47.0); HGB HCT DIFFERENCE -0.4; LYMPHOCYTES % (AUTO) 10.3 % (13-45); MEAN CORPUSCULAR HEMOGLOBIN 29.3 pg (27.0-33.4); MEAN CORPUSCULAR HGB CONC 32.9 g/dL (32.0-36.0); MEAN CORPUSCULAR VOLUME 89 fl (80-97); MONOCYTES % (AUTO) 6.9 % (3-13); RED BLOOD COUNT 2.73 10^6/uL (3.72-5.28); SEGMENTED NEUTROPHILS % (AUTO) 82.2 % (42-78)
[2017-07-15] MEDS: LOSARTAN POTASSIUM 50 MG TABLET PO SCH (08:04)
[2017-07-15] MEDS: NORMAL SALINE 1000 ML 1,000 ML IV PRN (09:46)
[2017-07-15] MEDS: FLUOXETINE HCL 20 MG CAPSULE PO SCH (09:48)
[2017-07-15] MEDS: CLOPIDOGREL BISULFATE 75 MG TABLET PO SCH (09:49)
[2017-07-15] MEDS: AMLODIPINE BESYLATE 5 MG TABLET PO SCH ×2 (09:49→21:37)
[2017-07-15] MEDS: DOCUSATE SODIUM 100 MG CAPSULE PO SCH (09:49)
[2017-07-15] MEDS: CIPROFLOXACIN HCL 500 MG TABLET PO SCH ×2 (09:49→21:37)
[2017-07-15] MEDS: CEFEPIME 1 GM/D5W RTU 1 GM/50 ML RTUPB IV SCH ×2 (09:49→21:37)
[2017-07-15] MEDS: ACETAMINOPHEN 325 MG TABLET PO PRN (11:57)
--- NOTE | 2017-07-15 13:21 | PDOC PROGRESS REPORT ---
Subjective Progress Note for:: 07/15/17 Subjective:: She complained of weakness, insomnia, she was admitted for the management of sepsis due to urinary tract infection from E. coli, history of rheumatoid arthritis sleep apnea syndrome, she is noninvasive positive pressure ventilation BiPAP Physical Exam Vital Signs: Temp Pulse Resp BP Pulse Ox 99.6 F 89 23 H 133/63 H 97 07/15/17 11:49 07/15/17 11:49 07/15/17 11:49 07/15/17 11:49 07/15/17 11:49 Intake & Output 07/14/17 07/15/17 07/16/17 06:59 06:59 06:59 Intake Total 4213 3308 598 Output Total 4200 4600 1300 Balance 28 -4214 -544 Weight 113 kg 113.9 kg General appearance: PRESENT: no acute distress, well-developed, well-nourished Head exam: PRESENT: atraumatic, normocephalic Eye exam: PRESENT: conjunctiva pink, EOMI, PERRLA Ear exam: PRESENT: normal external ear exam Mouth exam: PRESENT: moist, tongue midline Neck exam: PRESENT: full ROM Respiratory exam: PRESENT: clear to auscultation carmencita Cardiovascular exam: PRESENT: RRR, +S1, +S2 Pulses: PRESENT: normal dorsalis pedis pul, +2 pedal pulses bilateral Vascular exam: PRESENT: normal capillary refill GI/Abdominal exam: PRESENT: normal bowel sounds, soft Rectal exam: PRESENT: deferred Neurological exam: PRESENT: alert, awake, oriented to person, oriented to place , oriented to time, oriented to situation, CN II-XII grossly intact Psychiatric exam: PRESENT: appropriate affect, normal mood Skin exam: PRESENT: dry, intact, warm Results Laboratory Results: 07/15/17 04:45 07/15/17 04:45 07/15/17 07/15/17 04:45 04:45 WBC 16.0 H RBC 2.73 L Hgb 8.0 L Hct 24.4 L MCV 89 MCH 29.3 MCHC 32.9 RDW 17.0 H Plt Count 318 Seg Neutrophils % 82.2 H Lymphocytes % 10.3 L Monocytes % 6.9 Eosinophils % 0.3 Basophils % 0.3 Absolute Neutrophils 13.1 H Absolute Lymphocytes 1.7 Absolute Monocytes 1.1 Absolute Eosinophils 0.0 Absolute Basophils 0.1 Sodium 146.3 H Potassium 3.7 Chloride 111 H Carbon Dioxide 24 Anion Gap 11 BUN 12 Creatinine 0.85 Est GFR ( Amer) > 60 Est GFR (Non-Af Amer) > 60 Glucose 127 H Calcium 8.2 L Impressions: Chest X-Ray 07/10/17 17:41 IMPRESSION: NO ACUTE RADIOGRAPHIC FINDING IN THE CHEST. Abdomen Ultrasound 07/10/17 20:26 IMPRESSION: No acute findings. Abdomen/Pelvis CT 07/11/17 00:00 IMPRESSION: Stable low-density left adrenal nodule likely representing an adenoma. There is no acute abnormality in the abdomen pelvis. There are no findings that explain the patient's pain. Guidance Fluoroscopy 07/13/17 00:00 IMPRESSION: SUCCESSFUL PLACEMENT OF A 5 FR DUAL LUMEN 46 CM PICC IN THE LEFT BASILIC VEIN. Interventional Vascular Procedure 07/13/17 00:00 IMPRESSION: SUCCESSFUL PLACEMENT OF A 5 FR DUAL LUMEN 46 CM PICC IN THE LEFT BASILIC VEIN. PICC Line Insertion 07/13/17 00:00 IMPRESSION: SUCCESSFUL PLACEMENT OF A 5 FR DUAL LUMEN 46 CM PICC IN THE LEFT BASILIC VEIN. Assessment & Plan - Diagnosis (1) Septicemia Is this a current diagnosis for this admission?: Yes Plan: Continue IV antibiotic with cefepime (2) Escherichia coli septicemia Is this a current diagnosis for this admission?: Yes (3) Insomnia Qualifiers: Insomnia type: unspecified Qualified Code(s): G47.00 - Insomnia, unspecified Is this a current diagnosis for this admission?: Yes Plan: Give Ambien for sleep
[2017-07-15] MEDS: OXYCODONE HCL SR 10 MG TABLET PO SCH (17:36)
[2017-07-15] MEDS: ZOLPIDEM TARTRATE 5 MG TABLET PO SCH (21:36)
[2017-07-16] MEDS: ACETAMINOPHEN 325 MG TABLET PO PRN ×2 (03:50→08:46)
[2017-07-16] MEDS: OXYCODONE-ACETAMINOPHEN 5-325 MG TABLET PO PRN ×3 (03:53→16:37)
[2017-07-16] MEDS: OXYCODONE HCL IR 5 MG TABLET PO PRN ×3 (03:53→16:39)
[2017-07-16] MEDS: NORMAL SALINE 1000 ML 1,000 ML IV PRN (04:59)
[2017-07-16] MEDS: OXYCODONE HCL SR 10 MG TABLET PO SCH ×2 (05:41→18:34)
[2017-07-16] MEDS: HEPARIN SOD (PORCINE) 5,000 UNIT/ML 1 ML SYRINGE SUBCUT SCH ×3 (05:41→21:47)
[2017-07-16] MEDS: GABAPENTIN 300 MG CAPSULE PO SCH ×3 (05:42→21:47)
[2017-07-16] MEDS: LANSOPRAZOLE 15 MG TAB.RAP.DR PO SCH ×2 (05:43→16:40)
[2017-07-16 06:37] LABS: ABSOLUTE BASOPHILS # (AUTO) 0.1 10^3/uL (0.0-0.2); ABSOLUTE EOSINOPHILS # (AUTO) 0.1 10^3/uL (0.0-0.6); ABSOLUTE NEUT (AUTO) 12.9 10^3/uL (1.7-8.2); BASOPHILS % (AUTO) 0.6 % (0-2); EOSINOPHILS % (AUTO) 0.3 % (0-6); HEMATOCRIT 23.9 % (36.0-47.0); HGB HCT DIFFERENCE -0.2; LYMPHOCYTES % (AUTO) 12.4 % (13-45); MEAN CORPUSCULAR HEMOGLOBIN 29.4 pg (27.0-33.4); MEAN CORPUSCULAR HGB CONC 33.1 g/dL (32.0-36.0); MEAN CORPUSCULAR VOLUME 89 fl (80-97); MONOCYTES % (AUTO) 6.4 % (3-13); RED BLOOD COUNT 2.69 10^6/uL (3.72-5.28); RED CELL DISTRIBUTION WIDTH 16.8 % (11.5-14.0); SEGMENTED NEUTROPHILS % (AUTO) 80.3 % (42-78); WHITE BLOOD COUNT 16.1 10^3/uL (4.0-10.5)
[2017-07-16 06:41] LABS: HEMOGLOBIN 7.9 g/dL (12.0-15.5)
[2017-07-16 07:12] LABS: ANION GAP 10 (5-19); BLOOD UREA NITROGEN 11 mg/dL (7-20); CARBON DIOXIDE 24 mmol/L (22-30); CHLORIDE 111 mmol/L (98-107); CREATININE RESULT 0.78 mg/dL (0.52-1.25); GLUCOSE 117 mg/dL (75-110); POTASSIUM 3.7 mmol/L (3.6-5.0); SODIUM 145.3 mmol/L (137-145)
[2017-07-16] MEDS: LOSARTAN POTASSIUM 50 MG TABLET PO SCH (08:50)
[2017-07-16] MEDS: CLOPIDOGREL BISULFATE 75 MG TABLET PO SCH (09:00)
[2017-07-16] MEDS: DOCUSATE SODIUM 100 MG CAPSULE PO SCH (09:00)
[2017-07-16] MEDS: AMLODIPINE BESYLATE 5 MG TABLET PO SCH ×2 (09:01→21:47)
[2017-07-16] MEDS: CIPROFLOXACIN HCL 500 MG TABLET PO SCH ×2 (09:01→21:47)
[2017-07-16] MEDS: FLUOXETINE HCL 20 MG CAPSULE PO SCH (09:01)
[2017-07-16] MEDS: CEFEPIME 1 GM/D5W RTU 1 GM/50 ML RTUPB IV SCH ×2 (09:02→21:46)
[2017-07-16 12:40] LABS: ABSOLUTE BASOPHILS # (AUTO) 0.1 10^3/uL (0.0-0.2); ABSOLUTE EOSINOPHILS # (AUTO) 0.1 10^3/uL (0.0-0.6); ABSOLUTE LYMPHOCYTES (AUTO) 1.7 10^3/uL (0.5-4.7); ABSOLUTE MONOCYTES (AUTO) 0.8 10^3/uL (0.1-1.4); ABSOLUTE NEUT (AUTO) 11.9 10^3/uL (1.7-8.2); BASOPHILS % (AUTO) 0.7 % (0-2); EOSINOPHILS % (AUTO) 0.5 % (0-6); HEMATOCRIT 27.2 % (36.0-47.0); HEMOGLOBIN 8.9 g/dL (12.0-15.5); HGB HCT DIFFERENCE -0.5; LYMPHOCYTES % (AUTO) 11.8 % (13-45); MEAN CORPUSCULAR HEMOGLOBIN 29.4 pg (27.0-33.4); MEAN CORPUSCULAR HGB CONC 32.8 g/dL (32.0-36.0); MEAN CORPUSCULAR VOLUME 90 fl (80-97); MONOCYTES % (AUTO) 5.5 % (3-13); RED BLOOD COUNT 3.03 10^6/uL (3.72-5.28); RED CELL DISTRIBUTION WIDTH 16.9 % (11.5-14.0); SEGMENTED NEUTROPHILS % (AUTO) 81.5 % (42-78); WHITE BLOOD COUNT 14.5 10^3/uL (4.0-10.5)
--- NOTE | 2017-07-16 15:02 | PDOC PROGRESS REPORT ---
Subjective Progress Note for:: 07/16/17 Subjective:: She complained of pain in the right lower quadrant of the abdomen Physical Exam Vital Signs: Temp Pulse Resp BP Pulse Ox 98.5 F 78 18 99/55 L 99 07/16/17 11:58 07/16/17 14:00 07/16/17 11:58 07/16/17 11:58 07/16/17 11:58 Intake & Output 07/15/17 07/16/17 07/17/17 06:59 06:59 06:59 Intake Total 3308 3424 898 Output Total 4600 3850 700 Balance -1292 -426 198 Weight 113.9 kg 111.6 kg General appearance: PRESENT: no acute distress Head exam: PRESENT: atraumatic, normocephalic Eye exam: PRESENT: PERRLA. ABSENT: scleral icterus Ear exam: PRESENT: normal external ear exam Mouth exam: PRESENT: moist, tongue midline Respiratory exam: PRESENT: clear to auscultation carmencita Cardiovascular exam: PRESENT: RRR, +S1, +S2 Pulses: PRESENT: normal dorsalis pedis pul, +2 pedal pulses bilateral Vascular exam: PRESENT: normal capillary refill GI/Abdominal exam: PRESENT: normal bowel sounds, soft, tenderness - Right lower quadrant Rectal exam: PRESENT: deferred Neurological exam: PRESENT: alert, CN II-XII grossly intact. ABSENT: motor sensory deficit Psychiatric exam: PRESENT: appropriate affect, normal mood. ABSENT: homicidal ideation, suicidal ideation Skin exam: PRESENT: dry, intact, warm. ABSENT: cyanosis, rash Results Laboratory Results: 07/16/17 12:21 07/16/17 06:05 07/16/17 07/16/17 07/16/17 06:05 06:05 12:21 WBC 16.1 H 14.5 H RBC 2.69 L 3.03 L Hgb 7.9 L 8.9 L Hct 23.9 L 27.2 L MCV 89 90 MCH 29.4 29.4 MCHC 33.1 32.8 RDW 16.8 H 16.9 H Plt Count 348 359 Seg Neutrophils % 80.3 H 81.5 H Lymphocytes % 12.4 L 11.8 L Monocytes % 6.4 5.5 Eosinophils % 0.3 0.5 Basophils % 0.6 0.7 Absolute Neutrophils 12.9 H 11.9 H Absolute Lymphocytes 2.0 1.7 Absolute Monocytes 1.0 0.8 Absolute Eosinophils 0.1 0.1 Absolute Basophils 0.1 0.1 Sodium 145.3 H Potassium 3.7 Chloride 111 H Carbon Dioxide 24 Anion Gap 10 BUN 11 Creatinine 0.78 Est GFR ( Amer) > 60 Est GFR (Non-Af Amer) > 60 Glucose 117 H Calcium 8.0 L 07/14/17 04:19 Catheterized Urine Urine Culture - Final NO GROWTH 2 DAYS Impressions: Chest X-Ray 07/10/17 17:41 IMPRESSION: NO ACUTE RADIOGRAPHIC FINDING IN THE CHEST. Abdomen Ultrasound 07/10/17 20:26 IMPRESSION: No acute findings. Guidance Fluoroscopy 07/13/17 00:00 IMPRESSION: SUCCESSFUL PLACEMENT OF A 5 FR DUAL LUMEN 46 CM PICC IN THE LEFT BASILIC VEIN. Interventional Vascular Procedure 07/13/17 00:00 IMPRESSION: SUCCESSFUL PLACEMENT OF A 5 FR DUAL LUMEN 46 CM PICC IN THE LEFT BASILIC VEIN. PICC Line Insertion 07/13/17 00:00 IMPRESSION: SUCCESSFUL PLACEMENT OF A 5 FR DUAL LUMEN 46 CM PICC IN THE LEFT BASILIC VEIN. Assessment & Plan - Diagnosis (1) Septicemia Is this a current diagnosis for this admission?: Yes (2) Escherichia coli septicemia Is this a current diagnosis for this admission?: Yes (3) Insomnia Qualifiers: Insomnia type: unspecified Qualified Code(s): G47.00 - Insomnia, unspecified Is this a current diagnosis for this admission?: Yes (4) Right lower quadrant abdominal pain Is this a current diagnosis for this admission?: Yes Plan: CT scan of the abdomen and pelvis ordered
--- NOTE | 2017-07-16 15:03 | RADIOLOGY REPORT (SQ) ---
EXAM DESCRIPTION: CT ABD/PELVIS NO ORAL OR IV COMPLETED DATE/TIME: 07/16/2017 2:48 pm REASON FOR STUDY: Right lower quadrant pain COMPARISON: 07/11/2017 TECHNIQUE: CT scan of the abdomen and pelvis performed without intravenous or oral contrast. Images reviewed with lung, soft tissue, and bone windows. Reconstructed coronal and sagittal MPR images revi ewed. All images stored on PACS. All CT scanners at this facility use dose modulation, iterative reconstruction, and/or weight based d osing when appropriate to reduce radiation dose to as low as reasonably achievable (ALARA). [facility]: Dose Right [facility]: CareDose [facility]: Dose Right [facility]: Teradose 4D [facility]: [employer] RADIATION DOSE: Up-to-date CT equipment and radiation dose reduction techniques were employed. CTDIv ol: 20.9 mGy. DLP: 1090 mGy-cm.mGy. LIMITATIONS: None. FINDINGS: LOWER CHEST: No significant findings. No nodules or infiltrates. NON-CONTRASTED LIVER, SPLEEN, ADRENALS: Low-density liver lesions are unchanged. Left adrenal nodule is unchanged. PANCREAS: No masses. No peripancreatic inflammatory changes. GALLBLADDER: No identified stones by CT criteria. No inflammatory changes to suggest cholecystitis. RIGHT KIDNEY AND URETER: No suspicious masses. Assessment limited by lack of IV contrast. No signif icant calcifications. No hydronephrosis or hydroureter. LEFT KIDNEY AND URETER: No suspicious masses. Assessment limited by lack of IV contrast. No signifi cant calcifications. No hydronephrosis or hydroureter. AORTA AND RETROPERITONEUM: No aneurysm. No retroperitoneal masses or adenopathy. BOWEL AND PERITONEAL CAVITY: No obvious masses or inflammatory changes. No free fluid. APPENDIX: Normal. PELVIS, BLADDER, AND ABDOMINAL WALL:Marquez catheter in urinary bladder. BONES: No significant findings. OTHER: No other significant finding. IMPRESSION: NO ACUTE PROCESS IN THE ABDOMEN OR PELVIS. COMMENT: Quality ID # [id number]: Final reports with documentation of one or more dose reduction techniques (e.g., Automated exposure control, adjustment of the mA and/or kV according to patient size, use of iterative reconstruction technique) TECHNICAL DOCUMENTATION: JOB ID: [id number] [employer]- All Rights Reserved
[2017-07-16] MEDS: ZOLPIDEM TARTRATE 5 MG TABLET PO SCH (21:47)
[2017-07-17] MEDS: OXYCODONE-ACETAMINOPHEN 5-325 MG TABLET PO PRN ×3 (02:55→23:31)
[2017-07-17] MEDS: OXYCODONE HCL IR 5 MG TABLET PO PRN ×3 (03:00→23:32)
[2017-07-17 05:11] LABS: ABSOLUTE BASOPHILS # (AUTO) 0.2 10^3/uL (0.0-0.2); ABSOLUTE EOSINOPHILS # (AUTO) 0.1 10^3/uL (0.0-0.6); ABSOLUTE MONOCYTES (AUTO) 1.1 10^3/uL (0.1-1.4); BASOPHILS % (AUTO) 1.3 % (0-2); EOSINOPHILS % (AUTO) 0.6 % (0-6); HEMATOCRIT 23.4 % (36.0-47.0); LYMPHOCYTES % (AUTO) 11.9 % (13-45); MEAN CORPUSCULAR HEMOGLOBIN 30.2 pg (27.0-33.4); MEAN CORPUSCULAR HGB CONC 33.5 g/dL (32.0-36.0); MEAN CORPUSCULAR VOLUME 90 fl (80-97); MONOCYTES % (AUTO) 6.6 % (3-13); RED BLOOD COUNT 2.59 10^6/uL (3.72-5.28); RED CELL DISTRIBUTION WIDTH 17.3 % (11.5-14.0); SEGMENTED NEUTROPHILS % (AUTO) 79.6 % (42-78); WHITE BLOOD COUNT 16.3 10^3/uL (4.0-10.5)
[2017-07-17 05:15] LABS: HEMOGLOBIN 7.8 g/dL (12.0-15.5)
[2017-07-17 05:22] LABS: ANION GAP 10 (5-19); BLOOD UREA NITROGEN 13 mg/dL (7-20); CARBON DIOXIDE 25 mmol/L (22-30); CHLORIDE 110 mmol/L (98-107); CREATININE RESULT 0.84 mg/dL (0.52-1.25); GLUCOSE 106 mg/dL (75-110); POTASSIUM 3.9 mmol/L (3.6-5.0); SODIUM 144.7 mmol/L (137-145)
[2017-07-17] MEDS: LANSOPRAZOLE 15 MG TAB.RAP.DR PO SCH ×2 (06:20→17:24)
[2017-07-17] MEDS: GABAPENTIN 300 MG CAPSULE PO SCH ×3 (06:20→22:44)
[2017-07-17] MEDS: OXYCODONE HCL SR 10 MG TABLET PO SCH ×2 (06:21→17:24)
[2017-07-17] MEDS: HEPARIN SOD (PORCINE) 5,000 UNIT/ML 1 ML SYRINGE SUBCUT SCH ×3 (06:21→22:44)
[2017-07-17] MEDS ORDERED: NORMAL SALINE 250 ML IV PRN ×2 (07:59)
[2017-07-17] MEDS: LOSARTAN POTASSIUM 50 MG TABLET PO SCH (08:29)
[2017-07-17] MEDS: CEFEPIME 1 GM/D5W RTU 1 GM/50 ML RTUPB IV SCH ×2 (09:49→22:44)
[2017-07-17] MEDS: DOCUSATE SODIUM 100 MG CAPSULE PO SCH ×2 (09:50→17:24)
[2017-07-17] MEDS: CLOPIDOGREL BISULFATE 75 MG TABLET PO SCH (09:51)
[2017-07-17] MEDS: FLUOXETINE HCL 20 MG CAPSULE PO SCH (09:51)
[2017-07-17] MEDS: AMLODIPINE BESYLATE 5 MG TABLET PO SCH ×2 (09:52→22:44)
[2017-07-17] MEDS: METRONIDAZOLE 500 MG TABLET PO SCH ×2 (13:48→22:44)
[2017-07-17] MEDS ORDERED: ONDANSETRON HCL INJ/PF 4 MG/2 ML SDV IV PRN ×2 (14:20→14:26)
--- NOTE | 2017-07-17 15:43 | PDOC PROGRESS REPORT ---
Subjective Progress Note for:: 07/17/17 Subjective:: Patient is currently doing much better. Patient still complaining of right leg and hip pain but other than that no other events happened Patient subsequent blood culture and urine culture is all negative Recent CT abdomen pelvis was done yesterday was negative for any acute finding Still very weak But overall patients feel better compared to the patient's came and discussed with the and the bedside and patient systems to be much better Physical Exam Vital Signs: Temp Pulse Resp BP Pulse Ox 98.6 F 81 18 118/67 94 07/17/17 13:53 07/17/17 12:35 07/17/17 12:35 07/17/17 13:53 07/17/17 12:20 Intake & Output 07/16/17 07/17/17 07/18/17 06:59 06:59 06:59 Intake Total 3424 2303 598 Output Total 3850 2300 500 Balance -426 3 98 Weight 111.6 kg 112.9 kg General appearance: PRESENT: no acute distress, well-developed, well-nourished Head exam: PRESENT: atraumatic, normocephalic Eye exam: PRESENT: conjunctiva pink, EOMI, PERRLA. ABSENT: scleral icterus Ear exam: PRESENT: normal external ear exam Mouth exam: PRESENT: moist, tongue midline Neck exam: PRESENT: full ROM. ABSENT: carotid bruit, JVD, lymphadenopathy, thyromegaly Respiratory exam: PRESENT: clear to auscultation carmencita Cardiovascular exam: PRESENT: RRR. ABSENT: diastolic murmur, rubs, systolic murmur Pulses: PRESENT: normal dorsalis pedis pul, +2 pedal pulses bilateral Vascular exam: PRESENT: normal capillary refill GI/Abdominal exam: PRESENT: normal bowel sounds, soft. ABSENT: distended, guarding, mass, organolmegaly, rebound, tenderness Rectal exam: PRESENT: deferred Extremities exam: ABSENT: full ROM, left AKA, right AKA, left BKA, right BKA, calf tenderness, joint swelling, pedal edema, tenderness, other Neurological exam: PRESENT: alert, awake, oriented to person, oriented to place , oriented to time, oriented to situation, CN II-XII grossly intact. ABSENT: motor sensory deficit Psychiatric exam: PRESENT: appropriate affect, normal mood. ABSENT: homicidal ideation, suicidal ideation Skin exam: PRESENT: dry, intact, warm. ABSENT: cyanosis, rash Results Laboratory Results: 07/17/17 04:50 07/17/17 04:50 07/17/17 07/17/17 07/17/17 04:50 04:50 08:45 WBC 16.3 H RBC 2.59 L Hgb 7.8 L Hct 23.4 L MCV 90 MCH 30.2 MCHC 33.5 RDW 17.3 H Plt Count 349 Seg Neutrophils % 79.6 H Lymphocytes % 11.9 L Monocytes % 6.6 Eosinophils % 0.6 Basophils % 1.3 Absolute Neutrophils 13.0 H Absolute Lymphocytes 2.0 Absolute Monocytes 1.1 Absolute Eosinophils 0.1 Absolute Basophils 0.2 Sodium 144.7 Potassium 3.9 Chloride 110 H Carbon Dioxide 25 Anion Gap 10 BUN 13 Creatinine 0.84 Est GFR ( Amer) > 60 Est GFR (Non-Af Amer) > 60 Glucose 106 Calcium 8.0 L Blood Type A POSITIVE Antibody Screen NEGATIVE Impressions: Chest X-Ray 07/10/17 17:41 IMPRESSION: NO ACUTE RADIOGRAPHIC FINDING IN THE CHEST. Abdomen Ultrasound 07/10/17 20:26 IMPRESSION: No acute findings. Guidance Fluoroscopy 07/13/17 00:00 IMPRESSION: SUCCESSFUL PLACEMENT OF A 5 FR DUAL LUMEN 46 CM PICC IN THE LEFT BASILIC VEIN. Interventional Vascular Procedure 07/13/17 00:00 IMPRESSION: SUCCESSFUL PLACEMENT OF A 5 FR DUAL LUMEN 46 CM PICC IN THE LEFT BASILIC VEIN. PICC Line Insertion 07/13/17 00:00 IMPRESSION: SUCCESSFUL PLACEMENT OF A 5 FR DUAL LUMEN 46 CM PICC IN THE LEFT BASILIC VEIN. Abdomen/Pelvis CT 07/16/17 00:00 IMPRESSION: NO ACUTE PROCESS IN THE ABDOMEN OR PELVIS. Assessment & Plan - Diagnosis (1) Gram negative sepsis Is this a current diagnosis for this admission?: Yes Plan: Currently all resolving the subsequent culture is all negative (2) Urinary tract bacterial infections Is this a current diagnosis for this admission?: Yes Plan: Continues to IV cefepime (3) Chronic obstructive pulmonary disease Is this a current diagnosis for this admission?: Yes Plan: Sj to current medications (4) Rheumatoid arthritis Qualifiers: Laterality: unspecified laterality Is this a current diagnosis for this admission?: Yes Plan: Since currently see a datacap developer as outpatients (5) Anemia Qualifiers: Anemia type: other cause Other causes of anemia: chronic disease, other Qualified Code(s): D63.8 - Anemia in other chronic diseases classified elsewhere Is this a current diagnosis for this admission?: Yes Plan: We will transfuse the 1 unit of the blood (6) Acute renal insufficiency Is this a current diagnosis for this admission?: Yes Plan: Currently all resolving continues IV fluid (7) Hypokalemia Is this a current diagnosis for this admission?: Yes (8) Hypertension Qualifiers: Hypertension type: essential hypertension Qualified Code(s): I10 - Essential (primary) hypertension Is this a current diagnosis for this admission?: Yes Plan: Currently all stable (9) Leukocytosis Qualifiers: Leukocytosis type: unspecified Qualified Code(s): D72.829 - Elevated white blood cell count, unspecified Is this a current diagnosis for this admission?: Yes Plan: Most likely a from the sepsis but it is coming up will get the stool for the C. difficile and empirically put the patient on the Flagyl - Time Time Spent with patient: 15-24 minutes Medications reviewed and adjusted accordingly: Yes Anticipated discharge: SNF Within: Other - Inpatient Certification Medical Necessity: Need Close Monitoring Due to Risk of Patient Decompensation, Need for IV Antibiotics Post Hospital Care: D/C Administrative Support Clerk Documentation - Plan Summary Plan Summary: Discussed with the patient and the about the patient's current conditions consult discharge planning for possible rehab placement
[2017-07-17 17:57] LABS: ABSOLUTE EOSINOPHILS # (AUTO) 0.1 10^3/uL (0.0-0.6); ABSOLUTE LYMPHOCYTES (AUTO) 2.1 10^3/uL (0.5-4.7); ABSOLUTE NEUT (AUTO) 12.2 10^3/uL (1.7-8.2); BASOPHILS % (AUTO) 0.3 % (0-2); EOSINOPHILS % (AUTO) 0.6 % (0-6); HEMATOCRIT 27.3 % (36.0-47.0); HEMOGLOBIN 9.1 g/dL (12.0-15.5); LYMPHOCYTES % (AUTO) 13.6 % (13-45); MEAN CORPUSCULAR HEMOGLOBIN 29.3 pg (27.0-33.4); MEAN CORPUSCULAR HGB CONC 33.4 g/dL (32.0-36.0); MEAN CORPUSCULAR VOLUME 88 fl (80-97); MONOCYTES % (AUTO) 6.3 % (3-13); RED CELL DISTRIBUTION WIDTH 19.7 % (11.5-14.0); SEGMENTED NEUTROPHILS % (AUTO) 79.2 % (42-78); WHITE BLOOD COUNT 15.5 10^3/uL (4.0-10.5)
[2017-07-17] MEDS: ZOLPIDEM TARTRATE 5 MG TABLET PO SCH (22:44)
[2017-07-18] MEDS: GABAPENTIN 300 MG CAPSULE PO SCH ×3 (05:48→21:54)
[2017-07-18] MEDS: LANSOPRAZOLE 15 MG TAB.RAP.DR PO SCH ×2 (05:49→16:06)
[2017-07-18] MEDS: METRONIDAZOLE 500 MG TABLET PO SCH ×3 (05:49→21:53)
[2017-07-18] MEDS: HEPARIN SOD (PORCINE) 5,000 UNIT/ML 1 ML SYRINGE SUBCUT SCH ×3 (05:49→21:51)
[2017-07-18 06:17] LABS: ABSOLUTE BASOPHILS # (AUTO) 0.1 10^3/uL (0.0-0.2); ABSOLUTE EOSINOPHILS # (AUTO) 0.1 10^3/uL (0.0-0.6); ABSOLUTE LYMPHOCYTES (AUTO) 2.1 10^3/uL (0.5-4.7); ABSOLUTE MONOCYTES (AUTO) 0.9 10^3/uL (0.1-1.4); ABSOLUTE NEUT (AUTO) 9.4 10^3/uL (1.7-8.2); BASOPHILS % (AUTO) 1.1 % (0-2); EOSINOPHILS % (AUTO) 0.5 % (0-6); HEMATOCRIT 26.6 % (36.0-47.0); HEMOGLOBIN 8.9 g/dL (12.0-15.5); HGB HCT DIFFERENCE 0.1; LYMPHOCYTES % (AUTO) 16.5 % (13-45); MEAN CORPUSCULAR HGB CONC 33.5 g/dL (32.0-36.0); MEAN CORPUSCULAR VOLUME 87 fl (80-97); MONOCYTES % (AUTO) 7.1 % (3-13); RED BLOOD COUNT 3.07 10^6/uL (3.72-5.28); SEGMENTED NEUTROPHILS % (AUTO) 74.8 % (42-78); WHITE BLOOD COUNT 12.5 10^3/uL (4.0-10.5)
[2017-07-18 06:41] LABS: ANION GAP 11 (5-19); BLOOD UREA NITROGEN 12 mg/dL (7-20); CARBON DIOXIDE 24 mmol/L (22-30); CHLORIDE 110 mmol/L (98-107); CREATININE RESULT 0.72 mg/dL (0.52-1.25); GLUCOSE 109 mg/dL (75-110); POTASSIUM 3.8 mmol/L (3.6-5.0); SODIUM 145.4 mmol/L (137-145)
[2017-07-18] MEDS: OXYCODONE HCL SR 10 MG TABLET PO SCH ×2 (08:11→17:26)
[2017-07-18] MEDS: LOSARTAN POTASSIUM 50 MG TABLET PO SCH (08:14)
[2017-07-18] MEDS ORDERED: EPOETIN ALFA INJ 40000 UNIT/1 ML (RENAL) SUBCUT ONE (08:16)
[2017-07-18] MEDS: OXYCODONE-ACETAMINOPHEN 5-325 MG TABLET PO PRN (08:20)
[2017-07-18] MEDS: FLUOXETINE HCL 20 MG CAPSULE PO SCH (09:05)
[2017-07-18] MEDS: DOCUSATE SODIUM 100 MG CAPSULE PO SCH ×2 (09:05→17:26)
[2017-07-18] MEDS: AMLODIPINE BESYLATE 5 MG TABLET PO SCH ×2 (09:06→21:51)
[2017-07-18] MEDS: CLOPIDOGREL BISULFATE 75 MG TABLET PO SCH (09:06)
[2017-07-18] MEDS: MELOXICAM 7.5 MG TABLET PO SCH (09:07)
[2017-07-18] MEDS: CIPROFLOXACIN HCL 500 MG TABLET PO SCH ×2 (09:07→21:53)
[2017-07-18] MEDS: BUDESONIDE/FORMOTEROL 160-4.5 MCG 60 PUFF/6 GM MDI IH SCH ×2 (09:08→21:58)
[2017-07-18] MEDS: NORMAL SALINE 1000 ML 1,000 ML IV PRN (12:24)
--- NOTE | 2017-07-18 13:03 | PDOC PROGRESS REPORT ---
Subjective Progress Note for:: 07/18/17 Subjective:: Patient is currently doing fair Patient's denied any fever overnight No chest pain No Shortness of the breath Patient still having some muscle weakness Physical Exam Vital Signs: Temp Pulse Resp BP Pulse Ox 98.4 F 80 18 99/75 L 100 07/18/17 11:23 07/18/17 11:23 07/18/17 11:23 07/18/17 11:23 07/18/17 11:23 Intake & Output 07/17/17 07/18/17 07/19/17 06:59 06:59 06:59 Intake Total 2303 4078 695 Output Total 2300 2600 800 Balance 3 1478 -105 Weight 112.9 kg 115.5 kg General appearance: PRESENT: no acute distress, well-developed, well-nourished Head exam: PRESENT: atraumatic, normocephalic Eye exam: PRESENT: conjunctiva pink, EOMI, PERRLA. ABSENT: scleral icterus Ear exam: PRESENT: normal external ear exam Mouth exam: PRESENT: moist, tongue midline Neck exam: PRESENT: full ROM. ABSENT: carotid bruit, JVD, lymphadenopathy, thyromegaly Respiratory exam: PRESENT: clear to auscultation carmencita Cardiovascular exam: PRESENT: RRR. ABSENT: diastolic murmur, rubs, systolic murmur Pulses: PRESENT: normal dorsalis pedis pul, +2 pedal pulses bilateral Vascular exam: PRESENT: normal capillary refill GI/Abdominal exam: PRESENT: normal bowel sounds, soft. ABSENT: distended, guarding, mass, organolmegaly, rebound, tenderness Rectal exam: PRESENT: deferred Neurological exam: PRESENT: alert, awake, oriented to person, oriented to place , oriented to time, oriented to situation, CN II-XII grossly intact. ABSENT: motor sensory deficit Psychiatric exam: PRESENT: appropriate affect, normal mood. ABSENT: homicidal ideation, suicidal ideation Skin exam: PRESENT: dry, intact, warm. ABSENT: cyanosis, rash Results Laboratory Results: 07/18/17 05:45 07/18/17 05:45 07/17/17 07/18/17 07/18/17 17:30 05:45 05:45 WBC 15.5 H 12.5 H RBC 3.10 L 3.07 L Hgb 9.1 L 8.9 L Hct 27.3 L 26.6 L MCV 88 87 MCH 29.3 29.0 MCHC 33.4 33.5 RDW 19.7 H 20.0 H Plt Count 336 327 Seg Neutrophils % 79.2 H 74.8 Lymphocytes % 13.6 16.5 Monocytes % 6.3 7.1 Eosinophils % 0.6 0.5 Basophils % 0.3 1.1 Absolute Neutrophils 12.2 H 9.4 H Absolute Lymphocytes 2.1 2.1 Absolute Monocytes 1.0 0.9 Absolute Eosinophils 0.1 0.1 Absolute Basophils 0.0 0.1 Sodium 145.4 H Potassium 3.8 Chloride 110 H Carbon Dioxide 24 Anion Gap 11 BUN 12 Creatinine 0.72 Est GFR ( Amer) > 60 Est GFR (Non-Af Amer) > 60 Glucose 109 Calcium 8.0 L 07/13/17 09:21 Blood Blood Culture - Final NO GROWTH IN 5 DAYS 07/13/17 08:14 Blood Blood Culture - Final NO GROWTH IN 5 DAYS Impressions: Chest X-Ray 07/10/17 17:41 IMPRESSION: NO ACUTE RADIOGRAPHIC FINDING IN THE CHEST. Abdomen Ultrasound 07/10/17 20:26 IMPRESSION: No acute findings. Guidance Fluoroscopy 07/13/17 00:00 IMPRESSION: SUCCESSFUL PLACEMENT OF A 5 FR DUAL LUMEN 46 CM PICC IN THE LEFT BASILIC VEIN. Interventional Vascular Procedure 07/13/17 00:00 IMPRESSION: SUCCESSFUL PLACEMENT OF A 5 FR DUAL LUMEN 46 CM PICC IN THE LEFT BASILIC VEIN. PICC Line Insertion 07/13/17 00:00 IMPRESSION: SUCCESSFUL PLACEMENT OF A 5 FR DUAL LUMEN 46 CM PICC IN THE LEFT BASILIC VEIN. Abdomen/Pelvis CT 07/16/17 00:00 IMPRESSION: NO ACUTE PROCESS IN THE ABDOMEN OR PELVIS. Assessment & Plan - Diagnosis (1) Gram negative sepsis Is this a current diagnosis for this admission?: Yes Plan: Switch to the p.o. antibiotic (2) Urinary tract bacterial infections Is this a current diagnosis for this admission?: Yes Plan: Continues to Cipro (3) Chronic obstructive pulmonary disease Is this a current diagnosis for this admission?: Yes Plan: Sj to current medications (4) Rheumatoid arthritis Qualifiers: Laterality: unspecified laterality Is this a current diagnosis for this admission?: Yes Plan: Since currently see a slip cover estimator as outpatients (5) Anemia Qualifiers: Anemia type: other cause Other causes of anemia: chronic disease, other Qualified Code(s): D63.8 - Anemia in other chronic diseases classified elsewhere Is this a current diagnosis for this admission?: Yes Plan: This was 1 unit of the blood transfusions (6) Acute renal insufficiency Is this a current diagnosis for this admission?: Yes Plan: Currently all resolved (7) Hypokalemia Is this a current diagnosis for this admission?: Yes Plan: Currently all resolved (8) Hypertension Qualifiers: Hypertension type: essential hypertension Qualified Code(s): I10 - Essential (primary) hypertension Is this a current diagnosis for this admission?: Yes Plan: Currently all stable (9) Leukocytosis Qualifiers: Leukocytosis type: unspecified Qualified Code(s): D72.829 - Elevated white blood cell count, unspecified Is this a current diagnosis for this admission?: Yes Plan: Continues to Cipro and Flagyl - Time Time Spent with patient: 15-24 minutes Medications reviewed and adjusted accordingly: Yes Anticipated discharge: SNF Within: within 24 hours - Inpatient Certification Medical Necessity: Need Close Monitoring Due to Risk of Patient Decompensation, Need For IV Fluids Post Hospital Care: D/C Animal Care Supervisor Documentation - Plan Summary Plan Summary: Patients remain stable and afebrile white count is normal possible discharge to the SNF discussed with the patient and the
[2017-07-18] MEDS ORDERED: NORMAL SALINE 10 ML SDV (AFTER EACH USE) IV PRN (18:41)
[2017-07-18] MEDS ORDERED: INSULIN LISPRO 100 UNIT/ML 3 ML VIAL SUBCUT ONE (18:45)
[2017-07-18] MEDS: ZOLPIDEM TARTRATE 5 MG TABLET PO SCH (21:57)
[2017-07-18] MEDS: NORMAL SALINE 10 ML SDV (SCHEDULED) IV SCH (21:57)
[2017-07-19] MEDS: HEPARIN SOD (PORCINE) 5,000 UNIT/ML 1 ML SYRINGE SUBCUT SCH ×3 (06:07→21:49)
[2017-07-19] MEDS: GABAPENTIN 300 MG CAPSULE PO SCH ×3 (06:08→21:49)
[2017-07-19] MEDS: LANSOPRAZOLE 15 MG TAB.RAP.DR PO SCH ×2 (06:08→16:21)
[2017-07-19] MEDS: OXYCODONE HCL SR 10 MG TABLET PO SCH ×2 (06:08→18:07)
[2017-07-19] MEDS: METRONIDAZOLE 500 MG TABLET PO SCH ×3 (06:09→21:49)
[2017-07-19 06:53] LABS: ABSOLUTE BASOPHILS # (AUTO) 0.1 10^3/uL (0.0-0.2); ABSOLUTE EOSINOPHILS # (AUTO) 0.1 10^3/uL (0.0-0.6); ABSOLUTE LYMPHOCYTES (AUTO) 1.9 10^3/uL (0.5-4.7); ABSOLUTE MONOCYTES (AUTO) 0.9 10^3/uL (0.1-1.4); ABSOLUTE NEUT (AUTO) 8.7 10^3/uL (1.7-8.2); BASOPHILS % (AUTO) 0.6 % (0-2); EOSINOPHILS % (AUTO) 0.7 % (0-6); HEMATOCRIT 27.2 % (36.0-47.0); HGB HCT DIFFERENCE -0.2; LYMPHOCYTES % (AUTO) 15.9 % (13-45); MEAN CORPUSCULAR HEMOGLOBIN 29.1 pg (27.0-33.4); MEAN CORPUSCULAR HGB CONC 33.2 g/dL (32.0-36.0); MEAN CORPUSCULAR VOLUME 88 fl (80-97); MONOCYTES % (AUTO) 8.1 % (3-13); RED CELL DISTRIBUTION WIDTH 19.2 % (11.5-14.0); SEGMENTED NEUTROPHILS % (AUTO) 74.7 % (42-78); WHITE BLOOD COUNT 11.7 10^3/uL (4.0-10.5)
[2017-07-19 07:37] LABS: ANION GAP 12 (5-19); BLOOD UREA NITROGEN 9 mg/dL (7-20); CARBON DIOXIDE 23 mmol/L (22-30); CHLORIDE 113 mmol/L (98-107); GLUCOSE 124 mg/dL (75-110); POTASSIUM 3.8 mmol/L (3.6-5.0); SODIUM 147.9 mmol/L (137-145)
[2017-07-19] MEDS: LOSARTAN POTASSIUM 50 MG TABLET PO SCH (08:03)
--- NOTE | 2017-07-19 08:26 | PDOC PROGRESS REPORT ---
Subjective Progress Note for:: 07/19/17 Subjective:: Patient is currently doing fairPatient's denied any chest pain denied any shortness of the breath No fever overnight Since white count is also coming down Patient still does not have any bowel movement Patient also complaining some inflammation in the joint started the meloxicam yesterday Physical Exam Vital Signs: Temp Pulse Resp BP Pulse Ox 99.1 F 85 20 126/52 H 94 07/19/17 07:07 07/19/17 07:07 07/19/17 07:07 07/19/17 07:07 07/19/17 07:07 Intake & Output 07/18/17 07/19/17 07/20/17 06:59 06:59 06:59 Intake Total 4078 2400 Output Total 2600 3550 Balance 1478 -1150 Weight 115.5 kg 115.2 kg General appearance: PRESENT: no acute distress, well-developed, well-nourished Head exam: PRESENT: atraumatic, normocephalic Eye exam: PRESENT: conjunctiva pink, EOMI, PERRLA. ABSENT: scleral icterus Ear exam: PRESENT: normal external ear exam Mouth exam: PRESENT: moist, tongue midline Neck exam: PRESENT: full ROM. ABSENT: carotid bruit, JVD, lymphadenopathy, thyromegaly Respiratory exam: PRESENT: clear to auscultation carmencita Cardiovascular exam: PRESENT: RRR. ABSENT: diastolic murmur, rubs, systolic murmur Pulses: PRESENT: normal dorsalis pedis pul, +2 pedal pulses bilateral Vascular exam: PRESENT: normal capillary refill GI/Abdominal exam: PRESENT: normal bowel sounds, soft. ABSENT: distended, guarding, mass, organolmegaly, rebound, tenderness Rectal exam: PRESENT: deferred Extremities exam: ABSENT: full ROM, left AKA, right AKA, left BKA, right BKA, calf tenderness, joint swelling, pedal edema, tenderness, other Musculoskeletal exam: PRESENT: ambulatory Neurological exam: PRESENT: alert, awake, oriented to person, oriented to place , oriented to time, oriented to situation, CN II-XII grossly intact. ABSENT: motor sensory deficit Psychiatric exam: PRESENT: appropriate affect, normal mood. ABSENT: homicidal ideation, suicidal ideation Skin exam: PRESENT: dry, intact, warm. ABSENT: cyanosis, rash Results Laboratory Results: 07/19/17 06:30 07/19/17 06:30 07/19/17 07/19/17 06:30 06:30 WBC 11.7 H RBC 3.10 L Hgb 9.0 L Hct 27.2 L MCV 88 MCH 29.1 MCHC 33.2 RDW 19.2 H Plt Count 365 Seg Neutrophils % 74.7 Lymphocytes % 15.9 Monocytes % 8.1 Eosinophils % 0.7 Basophils % 0.6 Absolute Neutrophils 8.7 H Absolute Lymphocytes 1.9 Absolute Monocytes 0.9 Absolute Eosinophils 0.1 Absolute Basophils 0.1 Sodium 147.9 H Potassium 3.8 Chloride 113 H Carbon Dioxide 23 Anion Gap 12 BUN 9 Creatinine 0.70 Est GFR ( Amer) > 60 Est GFR (Non-Af Amer) > 60 Glucose 124 H Calcium 8.0 L 07/13/17 09:21 Blood Blood Culture - Final NO GROWTH IN 5 DAYS 07/13/17 08:14 Blood Blood Culture - Final NO GROWTH IN 5 DAYS Impressions: Chest X-Ray 07/10/17 17:41 IMPRESSION: NO ACUTE RADIOGRAPHIC FINDING IN THE CHEST. Abdomen Ultrasound 07/10/17 20:26 IMPRESSION: No acute findings. Guidance Fluoroscopy 07/13/17 00:00 IMPRESSION: SUCCESSFUL PLACEMENT OF A 5 FR DUAL LUMEN 46 CM PICC IN THE LEFT BASILIC VEIN. Interventional Vascular Procedure 07/13/17 00:00 IMPRESSION: SUCCESSFUL PLACEMENT OF A 5 FR DUAL LUMEN 46 CM PICC IN THE LEFT BASILIC VEIN. PICC Line Insertion 07/13/17 00:00 IMPRESSION: SUCCESSFUL PLACEMENT OF A 5 FR DUAL LUMEN 46 CM PICC IN THE LEFT BASILIC VEIN. Abdomen/Pelvis CT 07/16/17 00:00 IMPRESSION: NO ACUTE PROCESS IN THE ABDOMEN OR PELVIS. Assessment & Plan - Diagnosis (1) Gram negative sepsis Is this a current diagnosis for this admission?: Yes Plan: Continues to p.o. Gretchen (2) Urinary tract bacterial infections Is this a current diagnosis for this admission?: Yes Plan: As above (3) Chronic obstructive pulmonary disease Is this a current diagnosis for this admission?: Yes Plan: Sj to current medications (4) Rheumatoid arthritis Qualifiers: Laterality: unspecified laterality Is this a current diagnosis for this admission?: Yes Plan: Since currently see a lead atg developer as outpatients (5) Anemia Qualifiers: Anemia type: other cause Other causes of anemia: chronic disease, other Qualified Code(s): D63.8 - Anemia in other chronic diseases classified elsewhere Is this a current diagnosis for this admission?: Yes Plan: This was 1 unit of the blood transfusions (6) Acute renal insufficiency Is this a current diagnosis for this admission?: Yes Plan: Currently all resolved (7) Hypokalemia Is this a current diagnosis for this admission?: Yes (8) Hypertension Qualifiers: Hypertension type: essential hypertension Qualified Code(s): I10 - Essential (primary) hypertension Is this a current diagnosis for this admission?: Yes Plan: Currently all stable (9) Leukocytosis Qualifiers: Leukocytosis type: unspecified Qualified Code(s): D72.829 - Elevated white blood cell count, unspecified Is this a current diagnosis for this admission?: Yes Plan: Is all coming down continues to Cipro and Flagyl - Time Time Spent with patient: 15-24 minutes Medications reviewed and adjusted accordingly: Yes Anticipated discharge: SNF, Acute Rehab Within: within 24 hours, Other - Inpatient Certification Medical Necessity: Need Close Monitoring Due to Risk of Patient Decompensation Post Hospital Care: D/C Dermatology Teacher Documentation - Plan Summary Plan Summary: I think patients currently doing fair will probably transition her care to the acute rehab's and continues to monitor the patient
[2017-07-19] MEDS: FLUOXETINE HCL 20 MG CAPSULE PO SCH (09:06)
[2017-07-19] MEDS: POLYETHYLENE GLYCOL 3350 POWDER 17 GM/1 PACKET PO SCH (09:06)
[2017-07-19] MEDS: BUDESONIDE/FORMOTEROL 160-4.5 MCG 60 PUFF/6 GM MDI IH SCH ×2 (09:06→21:48)
[2017-07-19] MEDS: DOCUSATE SODIUM 100 MG CAPSULE PO SCH ×2 (09:07→18:07)
[2017-07-19] MEDS: AMLODIPINE BESYLATE 5 MG TABLET PO SCH ×2 (09:07→21:50)
[2017-07-19] MEDS: BISACODYL 10 MG SUPP.RECT PR PRN (09:07)
[2017-07-19] MEDS: MELOXICAM 7.5 MG TABLET PO SCH (09:08)
[2017-07-19] MEDS: CLOPIDOGREL BISULFATE 75 MG TABLET PO SCH (09:09)
[2017-07-19] MEDS: CIPROFLOXACIN HCL 500 MG TABLET PO SCH ×2 (09:09→21:50)
[2017-07-19] MEDS: NORMAL SALINE 10 ML SDV (SCHEDULED) IV SCH ×2 (09:11→21:51)
[2017-07-19] MEDS: NORMAL SALINE 1000 ML 1,000 ML IV PRN (10:36)
[2017-07-19] MEDS: OXYCODONE-ACETAMINOPHEN 5-325 MG TABLET PO PRN (16:21)
[2017-07-19] MEDS: ZOLPIDEM TARTRATE 5 MG TABLET PO SCH (21:50)
[2017-07-20] MEDS: GABAPENTIN 300 MG CAPSULE PO SCH ×3 (05:50→21:59)
[2017-07-20] MEDS: METRONIDAZOLE 500 MG TABLET PO SCH ×3 (05:50→21:58)
[2017-07-20] MEDS: OXYCODONE HCL SR 10 MG TABLET PO SCH ×2 (05:50→17:21)
[2017-07-20] MEDS: HEPARIN SOD (PORCINE) 5,000 UNIT/ML 1 ML SYRINGE SUBCUT SCH ×3 (05:50→22:03)
[2017-07-20] MEDS: LANSOPRAZOLE 15 MG TAB.RAP.DR PO SCH ×2 (05:51→17:21)
[2017-07-20 06:18] LABS: ABSOLUTE BASOPHILS # (AUTO) 0.1 10^3/uL (0.0-0.2); ABSOLUTE EOSINOPHILS # (AUTO) 0.1 10^3/uL (0.0-0.6); ABSOLUTE LYMPHOCYTES (AUTO) 1.9 10^3/uL (0.5-4.7); ABSOLUTE NEUT (AUTO) 7.9 10^3/uL (1.7-8.2); BASOPHILS % (AUTO) 0.9 % (0-2); EOSINOPHILS % (AUTO) 0.9 % (0-6); HEMATOCRIT 28.8 % (36.0-47.0); HEMOGLOBIN 9.5 g/dL (12.0-15.5); HGB HCT DIFFERENCE -0.3; LYMPHOCYTES % (AUTO) 16.9 % (13-45); MEAN CORPUSCULAR HGB CONC 33.2 g/dL (32.0-36.0); MEAN CORPUSCULAR VOLUME 87 fl (80-97); MONOCYTES % (AUTO) 9.5 % (3-13); RED CELL DISTRIBUTION WIDTH 19.4 % (11.5-14.0); SEGMENTED NEUTROPHILS % (AUTO) 71.8 % (42-78)
[2017-07-20 06:23] LABS: ANION GAP 10 (5-19); BLOOD UREA NITROGEN 9 mg/dL (7-20); CALCIUM 8.2 mg/dL (8.4-10.2); CARBON DIOXIDE 26 mmol/L (22-30); CHLORIDE 111 mmol/L (98-107); CREATININE RESULT 0.69 mg/dL (0.52-1.25); GLUCOSE 109 mg/dL (75-110); POTASSIUM 3.7 mmol/L (3.6-5.0); SODIUM 146.9 mmol/L (137-145)
[2017-07-20] MEDS: OXYCODONE HCL IR 5 MG TABLET PO PRN ×2 (08:26→20:27)
[2017-07-20] MEDS: LOSARTAN POTASSIUM 50 MG TABLET PO SCH (08:27)
--- NOTE | 2017-07-20 09:35 | PDOC DISCHARGE SUMMARY ---
General - Admit/Disc Date/PCP Admission Date/Primary Care Provider: 07/10/17 22:21 JUSTINE LANDAVERDE MD Discharge Date: 07/20/17 - Discharge Diagnosis (1) Gram negative sepsis Is this a current diagnosis for this admission?: Yes Summary: E. coli gram-negative sepsis currently all resolved continues to p.o. Cipro (2) Urinary tract bacterial infections Is this a current diagnosis for this admission?: Yes Summary: E. coli urinary tract infections currently all resolving (3) Chronic obstructive pulmonary disease Is this a current diagnosis for this admission?: Yes Summary: Continues to nebulizer treatments (4) Rheumatoid arthritis Is this a current diagnosis for this admission?: Yes Summary: Patient was taking the Symphoni But patients develop the complications patients currently see her Dr. Rice as outpatients And is to see him next week and further evaluate for possible other options (5) Anemia Is this a current diagnosis for this admission?: Yes Summary: Currently all stable due to the chronic disease (6) Acute renal insufficiency Is this a current diagnosis for this admission?: Yes Summary: Currently all resolved (7) Hypokalemia Is this a current diagnosis for this admission?: Yes Summary: Currently all resolved (8) Hypertension Is this a current diagnosis for this admission?: Yes Summary: Continues to Benicar (9) Leukocytosis Is this a current diagnosis for this admission?: Yes Summary: Currently all stable - Additional Information Resuscitation Status: Full Code Discharge Diet: Diabetic Discharge Activity: Activity As Tolerated Home Medications: Fluoxetine HCl [Prozac] 1 cap PO DAILY 07/10/15 Amlodipine Besylate [Norvasc 5 mg Tablet] 5 mg PO Q12 #60 tablet 07/20/15 Aspirin [Ecotrin 81 mg EC Tablet] 81 mg PO DAILY #0 tabec 11/20/15 Clopidogrel Bisulfate [Plavix 75 mg Tablet] 75 mg PO DAILY #30 tablet 11/20/15 Gabapentin 600 mg PO TID #0 tablet 11/20/15 Estrogens,Conjugated [Premarin 0.3 mg Tablet] 0.3 mg PO QHS 07/10/17 Olmesartan Medoxomil [Benicar] 40 mg PO QAM 07/10/17 Omeprazole 40 mg PO QAM 07/10/17 Oxycodone HCl [Oxycontin Sr 10 mg Tablet] 10 mg PO Q12 07/10/17 Oxycodone HCl/Acetaminophen [Oxycodone-Acetaminophen 10-325] 1 each PO Q6H PRN 07/10/17 Albuterol Sulfate [Proair HFA Inhalation Aerosol 8.5 gm MDI] 1 puff IH Q4 PRN Temazepam [Restoril 7.5 mg Capsule] 7.5 mg PO HSP PRN 07/11/17 Umeclidinium Palmer [Incruse Ellipta] 62.5 mcg IH DAILY PRN 07/11/17 Acetaminophen [Tylenol 325 mg Tablet] 650 mg PO Q4HP PRN #60 tablet 07/20/17 Ciprofloxacin HCl [Cipro 500 mg Tablet] 500 mg PO BID #20 tablet 07/20/17 Docusate Sodium [Colace 100 mg Capsule] 100 mg PO BID #60 capsule 07/20/17 Metronidazole [Flagyl 500 mg Tablet] 500 mg PO Q8 #15 tablet 07/20/17 Oxycodone HCl [Oxy-Ir 5 mg Tablet] 5 mg PO Q6HP PRN #40 tablet 07/20/17 Oxycodone HCl [Oxycontin Sr 10 mg Tablet] 10 mg PO Q12A #30 tab.sr.12h 07/20/17 Polyethylene Glycol 3350 [Miralax Powder 17 gm/Packet] 17 gm PO DAILY #30 powd.pack 07/20/17 History of Present Illness History of Present Illness: TOMMY LUEVANO is a 61 year old female This 61-year-old female with a significant history of rheumatoid arthritis and multiple joint issueAnd patient is currently taking the Simponi injections per Dr. Rice the rheumatologistAnd injection was given the 4 days backAccording to the the patient started feeling weak and the patient started developing the fever and chills and nonproductive coughAnd in the emergency departments patient's blood count was elevated up to 21,000 and patient have a fever 103 and patient will most likely urosepsisPatient received the broad- spectrum IV antibiotic and admitting in the IMCU When I saw the patient is alert awake oriented 3 and in no distress patient's denied any chest pain denied any shortness of the breath Patient initial blood culture and urine culture both positive for gram-negative organism Patient have a significant history of the asthma COPD and also have ongoing problem with this joint in the muscles which patients failed for the methotrexate and Humira injections in the recently started this new medicine simponi Patient's otherwise denied any other complaints Hospital Course Hospital Course: This is a 61-year-old females with significant rheumatoid arthritis with inflammatory joint disease recently started the symphoni By the quarter inspector Dr. Rice and up to 3 days patient started developing the fever and chills and patients came to the emergency department when patient was diagnosed with a gram -negative urosepsis and patient was started on IV antibiotics and IV fluid Patient's also also developed acute renal failure and patient was put on IV fluid and all resolved Due to the chronic disease and hematology was consulted and suggest that transfuse the blood if he needed and patient received a 1 unit of the blood and also given 1 Procrit injections 40,000 Patient subsequent blood culture urine culture is all negative Patient's C. difficile is also negative Switch to the p.o. antibiotic and remain afebrile and white count is all remain coming down Significant history of rheumatoid arthritis and a lot of inflammatory disorders in the joint and the muscles patients currently see a quarter inspector for that at this point with currently Follow with the quarter inspector and patient have a received the steroid treatment in the past but causing more problems so we currently Do not prescribe the steroid until see the quarter inspector back Patient's otherwise see a pulmonary as outpatients currently all stable Very extensive discussions with the patient and the 's patient still have a some weakness and I think that is the patient's get a benefit to go to the rehab Chest wall is working with the rehab Physical Exam Vital Signs: Temp Pulse Resp BP Pulse Ox 99.3 F 85 20 139/68 H 95 07/20/17 07:58 07/20/17 07:58 07/20/17 07:58 07/20/17 07:58 07/20/17 07:58 Intake & Output 07/19/17 07/20/17 07/21/17 06:59 06:59 06:59 Intake Total 2400 2613 Output Total 3550 2450 Balance -1150 163 Weight 115.2 kg 115 kg General appearance: PRESENT: no acute distress, well-developed, well-nourished Head exam: PRESENT: atraumatic, normocephalic Eye exam: PRESENT: conjunctiva pink, EOMI, PERRLA. ABSENT: scleral icterus Ear exam: PRESENT: normal external ear exam Mouth exam: PRESENT: moist, tongue midline Neck exam: PRESENT: full ROM. ABSENT: carotid bruit, JVD, lymphadenopathy, thyromegaly Respiratory exam: PRESENT: clear to auscultation carmencita Cardiovascular exam: PRESENT: RRR. ABSENT: diastolic murmur, rubs, systolic murmur Pulses: PRESENT: normal dorsalis pedis pul, +2 pedal pulses bilateral Vascular exam: PRESENT: normal capillary refill GI/Abdominal exam: PRESENT: normal bowel sounds, soft. ABSENT: distended, guarding, mass, organolmegaly, rebound, tenderness Rectal exam: PRESENT: deferred Extremities exam: ABSENT: full ROM, left AKA, right AKA, left BKA, right BKA, calf tenderness, joint swelling, pedal edema, tenderness, other Musculoskeletal exam: PRESENT: ambulatory Neurological exam: PRESENT: alert, awake, oriented to person, oriented to place , oriented to time, oriented to situation, CN II-XII grossly intact. ABSENT: motor sensory deficit Psychiatric exam: PRESENT: appropriate affect, normal mood. ABSENT: homicidal ideation, suicidal ideation Skin exam: PRESENT: dry, intact, warm. ABSENT: cyanosis, rash Results Laboratory Results: 07/20/17 05:55 07/20/17 05:55 07/19/17 07/20/17 07/20/17 09:53 05:55 05:55 WBC 11.0 H RBC 3.30 L Hgb 9.5 L Hct 28.8 L MCV 87 MCH 29.0 MCHC 33.2 RDW 19.4 H Plt Count 310 Seg Neutrophils % 71.8 Lymphocytes % 16.9 Monocytes % 9.5 Eosinophils % 0.9 Basophils % 0.9 Absolute Neutrophils 7.9 Absolute Lymphocytes 1.9 Absolute Monocytes 1.0 Absolute Eosinophils 0.1 Absolute Basophils 0.1 Sodium 146.9 H Potassium 3.7 Chloride 111 H Carbon Dioxide 26 Anion Gap 10 BUN 9 Creatinine 0.69 Est GFR ( Amer) > 60 Est GFR (Non-Af Amer) > 60 Glucose 109 Calcium 8.2 L Stool Occult Blood NEGATIVE Impressions: Chest X-Ray 07/10/17 17:41 IMPRESSION: NO ACUTE RADIOGRAPHIC FINDING IN THE CHEST. Abdomen Ultrasound 07/10/17 20:26 IMPRESSION: No acute findings. Guidance Fluoroscopy 07/13/17 00:00 IMPRESSION: SUCCESSFUL PLACEMENT OF A 5 FR DUAL LUMEN 46 CM PICC IN THE LEFT BASILIC VEIN. Interventional Vascular Procedure 07/13/17 00:00 IMPRESSION: SUCCESSFUL PLACEMENT OF A 5 FR DUAL LUMEN 46 CM PICC IN THE LEFT BASILIC VEIN. PICC Line Insertion 07/13/17 00:00 IMPRESSION: SUCCESSFUL PLACEMENT OF A 5 FR DUAL LUMEN 46 CM PICC IN THE LEFT BASILIC VEIN. Abdomen/Pelvis CT 07/16/17 00:00 IMPRESSION: NO ACUTE PROCESS IN THE ABDOMEN OR PELVIS. Plan Time Spent: Greater than 30 Minutes - Very extensive discussed with the patient and the in the room with all the test reports and the plans and also possible discharge to the rehab if the insurance allow otherwise going to the home health physical therapy and fall precautions Check a CBC and Chem-7 in 1 week Follow with the quarter inspector in 1-2 weeks Discussed with the patient and if he starts running any fever chills is to follow in the ER
[2017-07-20] MEDS: BUDESONIDE/FORMOTEROL 160-4.5 MCG 60 PUFF/6 GM MDI IH SCH ×2 (09:57→21:59)
[2017-07-20] MEDS: DOCUSATE SODIUM 100 MG CAPSULE PO SCH ×2 (09:58→17:21)
[2017-07-20] MEDS: FLUOXETINE HCL 20 MG CAPSULE PO SCH (09:59)
[2017-07-20] MEDS: CIPROFLOXACIN HCL 500 MG TABLET PO SCH ×2 (09:59→21:59)
[2017-07-20] MEDS: MELOXICAM 7.5 MG TABLET PO SCH (09:59)
[2017-07-20] MEDS: CLOPIDOGREL BISULFATE 75 MG TABLET PO SCH (10:00)
[2017-07-20] MEDS: AMLODIPINE BESYLATE 5 MG TABLET PO SCH ×2 (10:00→22:00)
[2017-07-20] MEDS: POLYETHYLENE GLYCOL 3350 POWDER 17 GM/1 PACKET PO SCH (10:09)
[2017-07-20] MEDS: NORMAL SALINE 10 ML SDV (SCHEDULED) IV SCH ×2 (10:09→21:58)
[2017-07-20] MEDS: OXYCODONE-ACETAMINOPHEN 5-325 MG TABLET PO PRN (20:26)
[2017-07-20] MEDS: ZOLPIDEM TARTRATE 5 MG TABLET PO SCH (21:58)
[2017-07-21] MEDS: GABAPENTIN 300 MG CAPSULE PO SCH (06:39)
[2017-07-21] MEDS: METRONIDAZOLE 500 MG TABLET PO SCH (06:39)
[2017-07-21] MEDS: HEPARIN SOD (PORCINE) 5,000 UNIT/ML 1 ML SYRINGE SUBCUT SCH (06:39)
[2017-07-21] MEDS: LANSOPRAZOLE 15 MG TAB.RAP.DR PO SCH (06:40)
[2017-07-21] MEDS: OXYCODONE HCL SR 10 MG TABLET PO SCH (06:40)
[2017-07-21] MEDS: LOSARTAN POTASSIUM 50 MG TABLET PO SCH (08:26)
[2017-07-21] MEDS: BUDESONIDE/FORMOTEROL 160-4.5 MCG 60 PUFF/6 GM MDI IH SCH (09:39)
[2017-07-21] MEDS: CLOPIDOGREL BISULFATE 75 MG TABLET PO SCH (09:40)
[2017-07-21] MEDS: MELOXICAM 7.5 MG TABLET PO SCH (09:40)
[2017-07-21] MEDS: DOCUSATE SODIUM 100 MG CAPSULE PO SCH (09:40)
[2017-07-21] MEDS: FLUOXETINE HCL 20 MG CAPSULE PO SCH (09:41)
[2017-07-21] MEDS: AMLODIPINE BESYLATE 5 MG TABLET PO SCH (09:41)
[2017-07-21] MEDS: POLYETHYLENE GLYCOL 3350 POWDER 17 GM/1 PACKET PO SCH (09:42)
[2017-07-21] MEDS: CIPROFLOXACIN HCL 500 MG TABLET PO SCH (09:42)
[2017-07-21] MEDS: NORMAL SALINE 10 ML SDV (SCHEDULED) IV SCH (09:43)
[2017-07-21 11:37] VITALS: BP 120/62
== END 2017-07-21 13:08 | disposition home health service (06) | DRG 872 ==
LOC: ER 17:00 → EH 22:21 → UNDOADMIN 22:31 → 3S 07-11 13:41
PROVIDERS: ADMIT Family Medicine; ATTEND Family Medicine
PROC: 02HV33Z Insertion of Infusion Device into Superior Vena Cava, Percutaneous Approach (ICD-10-PCS; principal; 2017-07-13)
PROC: B5181ZA Fluoroscopy of Superior Vena Cava using Low Osmolar Contrast, Guidance (ICD-10-PCS; 2017-07-13)
PROC: B548ZZA Ultrasonography of Superior Vena Cava, Guidance (ICD-10-PCS; 2017-07-13)
DX: A41.51 Sepsis due to Escherichia coli [E. coli] (principal); N39.0 Urinary tract infection, site not specified; N17.9 Acute kidney failure, unspecified; J44.9 Chronic obstructive pulmonary disease, unspecified; E87.6 Hypokalemia; E27.9 Disorder of adrenal gland, unspecified; D64.9 Anemia, unspecified; E11.9 Type 2 diabetes mellitus without complications; N28.9 Disorder of kidney and ureter, unspecified; K21.9 Gastro-esophageal reflux disease without esophagitis; I10 Essential (primary) hypertension; F32.9 Major depressive disorder, single episode, unspecified; M06.9 Rheumatoid arthritis, unspecified; Z79.82 Long term (current) use of aspirin; Z79.02 Long term (current) use of antithrombotics/antiplatelets; Z79.899 Other long term (current) drug therapy; Z91.041 Radiographic dye allergy status; Z91.030 Bee allergy status; Z88.8 Allergy status to other drugs, medicaments and biological substances
CPT/HCPCS: 36415; 36430; 36569; 71010; 74176; 76705; 76937; 77001; 80048; 80053; 81001; 82272; 82607; 82728; 82746; 82803; 82962; 83540; 83550; 83605; 83735; 84466; 85025; 85045; 85610; 85652; 86850; 86900; 86901; 86920; 87040; 87077; 87086; 87088; 87186; 87493; 87804; 93005; 93010; 96365; 96367; 99291; J0692; J1642; J1644; J1815; J2543; J3370; J3480; J3490; J7030; J7060; J7620; P9016; Q4081

== ENCOUNTER → 2017-07-26 | Outpatient (CLI) | payer BC ==
--- NOTE | 2017-07-26 17:27 | RADIOLOGY REPORT (SQ) ---
EXAM DESCRIPTION: CHEST PA/LATERAL COMPLETED DATE/TIME: 07/26/2017 5:08 pm REASON FOR STUDY: R06.02 SHORTNESS OF BREATH COMPARISON: 07/10/2017 EXAM PARAMETERS: NUMBER OF VIEWS: two views TECHNIQUE: Digital Frontal and Lateral radiographic views of the chest acquired. RADIATION DOSE: NA LIMITATIONS: none FINDINGS: LUNGS AND PLEURA: No acute opacities, masses or pneumothorax. No pleural effusion. MEDIASTINUM AND HILAR STRUCTURES: No masses or contour abnormalities. HEART AND VASCULAR STRUCTURES: Heart normal size. No evidence for failure. BONES: No acute findings. HARDWARE: None in the chest. OTHER: No other significant finding. IMPRESSION: NO SIGNIFICANT RADIOGRAPHIC FINDING IN THE CHEST. TECHNICAL DOCUMENTATION: JOB ID: [id number] [employer]- All Rights Reserved
== END ==
LOC: OD 16:48
PROVIDERS: ATTEND Physician Assistant Medical
DX: R06.02 Shortness of breath (principal)
CPT/HCPCS: 71020

== ENCOUNTER → 2017-08-22 | Outpatient (CLI) | payer BC ==
--- NOTE | 2017-08-22 12:06 | RADIOLOGY REPORT (SQ) ---
EXAM DESCRIPTION: VENOUS BILATERAL LOWER COMPLETED DATE/TIME: 08/22/2017 11:35 am REASON FOR STUDY: PAIN M79.604 PAIN IN RIGHT LEG M79.605 PAIN IN LEFT LEG COMPARISON: None. TECHNIQUE: Dynamic and static villafuerte scale and color images acquired of both lower extremity venous sy stems. Selected spectral images acquired with additional compression and augmentation maneuvers. Imag es stored on PACS. LIMITATIONS: None. FINDINGS: RIGHT LEG COMMON FEMORAL AND FEMORAL: Normal phasicity, compression and augmentation. No visualized echogenic m aterial on villafuerte scale. No defects on color images. POPLITEAL: Normal compression and augmentation. No visualized echogenic material on villafuerte scale. No de fects on color images. CALF VESSELS: Normal compression and augmentation. No visualized echogenic material on villafuerte scale. No defects on color image. GSV AND SSV: Normal compression. No visualized echogenic material on villafuerte scale. No defects on color images. ANY DEEP VENOUS INSUFFICIENCY: Not evaluated. ANY EVIDENCE OF POPLITEAL CYST: No. OTHER: No other significant finding. LEFT LEG COMMON FEMORAL AND FEMORAL: Normal phasicity, compression and augmentation. No visualized echogenic m aterial on villafuerte scale. No defects on color images. POPLITEAL: Normal compression and augmentation. No visualized echogenic material on villafuerte scale. No de fects on color images. CALF VESSELS: Normal compression and augmentation. No visualized echogenic material on villafuerte scale. No defects on color images. GSV AND SSV: Normal compression. No visualized echogenic material on villafuerte scale. No defects on color images. ANY DEEP VENOUS INSUFFICIENCY: Not evaluated. ANY EVIDENCE POPLITEAL CYST: No. OTHER: No other significant finding. IMPRESSION: NO EVIDENCE DVT OR SVT IN EITHER LEG. TECHNICAL DOCUMENTATION: JOB ID: [id number] [employer]- All Rights Reserved
== END ==
LOC: SP 10:45
PROVIDERS: ATTEND Family Medicine
DX: M79.604 Pain in right leg (principal); M79.605 Pain in left leg
CPT/HCPCS: 93970

== ENCOUNTER → 2017-11-23 | Outpatient (CLI) | payer BC ==
[2017-11-23 11:30] LABS: HEMATOCRIT 37.7 % (36.0-47.0); HEMOGLOBIN 12.3 g/dL (12.0-15.5); MEAN CORPUSCULAR HEMOGLOBIN 30.8 pg (27.0-33.4); MEAN CORPUSCULAR HGB CONC 32.8 g/dL (32.0-36.0); MEAN CORPUSCULAR VOLUME 94 fl (80-97); PLATELET COUNT 285 10^3/uL (150-450); RED CELL DISTRIBUTION WIDTH 14.1 % (11.5-14.0); WHITE BLOOD COUNT 9.9 10^3/uL (4.0-10.5)
[2017-11-23 11:51] LABS: ABSOLUTE LYMPHOCYTES# (MANUAL) 1.1 10^3/uL (0.5-4.7); ABSOLUTE MONOCYTES # (MANUAL) 0.3 10^3/uL (0.1-1.4); ABSOLUTE NEUTROPHILS# (MANUAL) 8.3 10^3/uL (1.7-8.2); BASOPHILS % (MANUAL) 0 % (0-2); EOSINOPHILS % (MANUAL) 2 % (0-6); LYMPHOCYTES % (MANUAL) 11 % (13-45); MONOCYTES % (MANUAL) 3 % (3-13); SEGMENTED NEUTROPHILS % (MAN) 84 % (42-78); TOTAL CELLS COUNTED 100
[2017-11-23 11:52] LABS: ANISOCYTOSIS SLIGHT; PLATELET COMMENT ADEQUATE; TOXIC GRANULATION 1+
== END ==
LOC: OD 09:11
PROVIDERS: ATTEND Physician Assistant
DX: J45.50 Severe persistent asthma, uncomplicated (principal)
CPT/HCPCS: 36415; 82785; 85025; 86003

== ENCOUNTER → 2017-11-24 | Outpatient (CLI) | payer BC ==
--- NOTE | 2017-11-24 15:34 | RADIOLOGY REPORT (SQ) ---
EXAM DESCRIPTION: CT CHEST WITHOUT COMPLETED DATE/TIME: 11/24/2017 2:31 pm REASON FOR STUDY: SHORTNESS OF BREATH/HYPOEMIA R06.02 SHORTNESS OF BREATH R09.02 HYPOXEMIA COMPARISON: 2015. TECHNIQUE: CT scan performed of the chest without intravenous contrast. Images reviewed with lung, soft tissue and bone windows. Reconstructed coronal and sagittal MPR images reviewed. All images st ored on PACS. All CT scanners at this facility use dose modulation, iterative reconstruction, and/or weight based d osing when appropriate to reduce radiation dose to as low as reasonably achievable (ALARA). [facility]: Dose Right [facility]: CareDose [facility]: Dose Right [facility]: Teradose 4D [facility]: Smart Technologies RADIATION DOSE: CT Rad equipment meets quality standard of care and radiation dose reduction techniq ues were employed. CTDIvol: 18.4 mGy. DLP: 679 mGy-cm. mGy. LIMITATIONS: No technical limitations. FINDINGS: LUNGS AND PLEURA: No masses, infiltrates, pneumothorax. No pleural effusions, calcificati ons. HILAR AND MEDIASTINAL STRUCTURES: No identified masses or abnormal nodes. No obvious aneurysm. HEART AND VASCULAR STRUCTURES: No aneurysm. No pericardial effusion. UPPER ABDOMEN: Chronic liver cysts. Chronic left adrenal mass with low Hounsfield units. This is co nsistent with an adenoma. THYROID AND OTHER SOFT TISSUES: No masses. No adenopathy. BONES: No significant finding. HARDWARE: None in the chest. OTHER: No other significant findings. IMPRESSION: NO SIGNIFICANT FINDING ON NON-CONTRASTED CHEST CT. TECHNICAL DOCUMENTATION: JOB ID: [id number] Quality ID # [id number]: Final reports with documentation of one or more dose reduction techniques (e.g., Au tomated exposure control, adjustment of the mA and/or kV according to patient size, use of iterative reconstruction technique) 2010 [employer]- All Rights Reserved Reading location - IP/workstation name: [email or web address]
== END ==
LOC: RAD 14:08
PROVIDERS: ATTEND Internal Medicine Cardiovascular Disease
DX: R06.02 Shortness of breath (principal); R09.02 Hypoxemia
CPT/HCPCS: 71250

== ENCOUNTER 2017-11-28 08:07 | Day surgery (SDC) | payer BC ==
[2017-11-23 11:28] LABS: HEMATOCRIT 37.7 % (36.0-47.0); HEMOGLOBIN 12.3 g/dL (12.0-15.5); MEAN CORPUSCULAR HEMOGLOBIN 30.8 pg (27.0-33.4); MEAN CORPUSCULAR HGB CONC 32.8 g/dL (32.0-36.0); MEAN CORPUSCULAR VOLUME 94 fl (80-97); PLATELET COUNT 285 10^3/uL (150-450); RED CELL DISTRIBUTION WIDTH 14.1 % (11.5-14.0); WHITE BLOOD COUNT 9.9 10^3/uL (4.0-10.5)
[2017-11-23 11:30] LABS: APPEARANCE,URINE SLIGHTLY-CLOUDY; BILIRUBIN,URINE NEGATIVE (NEGATIVE); COLOR,URINE YELLOW; GLUCOSE, URINE NEGATIVE (NEGATIVE); KETONES,URINE NEGATIVE (NEGATIVE); LEUKOCYTE ESTERASE,URINE MODERATE (NEGATIVE); NITRITE,URINE NEGATIVE (NEGATIVE); PROTEIN,URINE NEGATIVE (NEGATIVE); UROBILINOGEN,URINE NEGATIVE mg/dL (<2.0)
[~2017-11-28 08:07] MED LIST changes: -ALBUTEROL SULFATE 0.083% NEB 2.5 MG/3 ML AMPUL NEB ONE; +LACTATED RINGERS 1000 ML IV PRN; +LIDOCAINE 0.5% INJ-PF (5 MG/ML) 50 ML SDV SUBCUT PRN
[2017-11-28 09:13] LABS: POTASSIUM 3.7 mmol/L (3.6-5.0)
[2017-11-28] MEDS ORDERED: DIPHENHYDRAMINE HCL 50 MG/ML VIAL IV PRN (10:20)
[2017-11-28] MEDS ORDERED: FENTANYL CITRATE INJ/PF 100 MCG/2 ML AMPUL IV PRN ×3 (10:20)
[2017-11-28] MEDS ORDERED: PROMETHAZINE HCL INJ 25 MG/1 ML VIAL IV PRN (10:20)
[2017-11-28] MEDS ORDERED: MEPERIDINE HCL/PF INJ 25 MG/1 ML DISP.SYRIN IV PRN (10:20)
[2017-11-28] MEDS ORDERED: FENTANYL CITRATE INJ/PF 100 MCG/2 ML AMPUL ONE ×2 (11:03→12:17)
[2017-11-28] MEDS ORDERED: MIDAZOLAM 2 MG/2 ML INJ ONE ×2 (11:03→11:04)
[2017-11-28] MEDS ORDERED: PROPOFOL INJ 200 MG/20 ML VIAL IV ONE (11:04)
[2017-11-28] MEDS ORDERED: LIDOCAINE 1%/EPINEPHRINE INJ 20 ML VIAL ONE (11:32)
--- NOTE | 2017-11-28 11:58 | Operative Report ---
Operative Report DATE OF SURGERY: 11/28/17 PREOPERATIVE DIAGNOSIS: Postmenopausal bleeding POSTOPERATIVE DIAGNOSIS: Same stenotic cervix OPERATION: Hysteroscopy D&C SURGEON: FRANSISCO FERNÁNDEZ ANESTHESIA: LMAC TISSUE REMOVED OR ALTERED: Endocervical endometrial curettings COMPLICATIONS: None ESTIMATED BLOOD LOSS: Minimal INTRAOPERATIVE FINDINGS: Stenotic cervix PROCEDURE: Patient was taken the OR and placed in supine position. Anesthesia was induced. She is placed in dorsolithotomy position using Agustin stirrups. Her perineum vagina were prepared and draped sterile fashion. She had voided prior to going back to the OR and did not need catheterization. Speculum was placed in the cervix was numbed with lidocaine with epinephrine. Approximately 10 cc were used. Tenaculum was placed. I attempted to sound the uterus and could not as the cervix was very stenotic. Using very small dilators I attempted to dilate cervical loss and the dilators would not pass beyond approximately 4 cm. Endocervical curettings were obtained. Hysteroscope up to about 4 cm was performed and I could not find entry into the uterine cavity. This is consistent with her history of an ablation. Sampling was taken as high as possible and sent for pathology. All instruments were removed she is placed back in supine position and taken recovery room in stable condition.
[2017-11-28] MEDS ORDERED: OXYCODONE-ACETAMINOPHEN 5-325 MG TABLET ONE (13:22)
[2017-11-28 15:51] VITALS: BP 133/55
== END 2017-11-28 14:10 | disposition home or self-care (01) ==
LOC: OROUT 08:07
PROVIDERS: ATTEND Obstetrics & Gynecology
DX: N95.0 Postmenopausal bleeding (principal); N88.2 Stricture and stenosis of cervix uteri; I10 Essential (primary) hypertension; G47.33 Obstructive sleep apnea (adult) (pediatric); J44.9 Chronic obstructive pulmonary disease, unspecified; Z79.891 Long term (current) use of opiate analgesic; Z87.891 Personal history of nicotine dependence; M06.9 Rheumatoid arthritis, unspecified; I69.354 Hemiplegia and hemiparesis following cerebral infarction affecting left non-dominant side; Z87.440 Personal history of urinary (tract) infections
CPT/HCPCS: 36415 ×2; 82962; 82947; 84132; 85027; 81001; 88305 ×2; 58558; J2250; J3010; J3490; J2704; 952

== ENCOUNTER → 2018-04-26 | Outpatient (CLI) | payer BC ==
--- NOTE | 2018-04-26 10:30 | WOMENS IMAGING REPORT ---
EXAM DESCRIPTION: 3D DX MAMMO BILAT COMPLETED DATE/TIME: 04/26/2018 9:58 am REASON FOR STUDY: RIGHT BREAST MASS AND FIBROADENOMAS N60.01 SOLITARY CYST OF RIGHT BREAST COMPARISON: [id number] TECHNIQUE: Standard craniocaudal and mediolateral oblique views of each breast recorded using digita l acquisition and breast tomosynthesis. True lateral view right breast. LIMITATIONS: None. FINDINGS: RIGHT BREAST MASSES: No suspicious masses. CALCIFICATIONS: No new or suspicious calcifications. ARCHITECTURAL DISTORTION: Anterior 9 o'clock position at old lumpectomy site. DEVELOPING DENSITY: None. ASYMMETRY: None noted. OTHER: No other significant findings. LEFT BREAST MASSES: No suspicious masses. CALCIFICATIONS: No new or suspicious calcifications. ARCHITECTURAL DISTORTION: None. DEVELOPING DENSITY: None. ASYMMETRY: None noted. OTHER: No other significant finding. Read with the assistance of CAD: .[facility] - R2 C[employer] Version 1.3 .[facility] Imaging - R2 Cenova Version 1.3 .[facility] Imaging - R2 Cenova Version 2.4 .[facility] [place] - R2 Cenova Version 2.4 .[facility] - R2 [employer] Version 9.2 Ultrasound of the right breast was normal. IMPRESSION: No evidence of malignancy. BREAST DENSITY: a. The breasts are almost entirely fatty. BIRAD: 2 Benign findings. RECOMMENDATION: RECOMMENDED FOLLOW UP: Birads 1 or 2: No breast imaging finding to explain the patie nt's presenting complaint. Further intervention should be based on the degree of clinical suspicion. SPECIFIC INTERVENTION/IMAGING/CONSULTATION RECOMMENDED:No additional intervention/ imaging/consultati on needed at this time. COMMUNICATION:The imaging findings were not discussed with the patient. Her referring provider has be en notified of the findings. COMMENT: The patient has been notified of the results by letter per SA requirements. Additional no tification policies are in place for contacting patient with suspicious or incomplete findings. Quality ID #[id number]: The [employer] recommends an annual screening mammogram for women aged 40 years or over. This facility utilizes a reminder system to ensure that all patients receive reminder letters, and/or direct phone calls for appointments. This includes reminders for routine scr eening mammograms, diagnostic mammograms, or other Breast Imaging Interventions when appropriate. Th is patient will be placed in the appropriate reminder system. The [employer] (ACR) has developed recommendations for screening MRI of the breast s in certain patient populations, to be used in conjunction with mammography. Breast MRI surveillanc e may be appropriate for women with more than 20% lifetime risk of developing breast cancer as deter mined by genetic testing, significant family history of the disease, or history of mantle radiation f or Hodgkins Disease. ACR Practice Guidelines 2008. DBT Technology DBT is a type of tomographic mammography. With conventional mammography, overlapping breast tissue ma y make lesions difficult to detect, even with good compression. DBT uses an x-ray tube that rotates a round the breast, taking images at different angles. These images are then combined to create thin sl ices of the breast that the radiologist can view as a 3D reconstruction. The Adreima unit can perform full-field digital mammograms (2D imaging); or DBT (3D imaging); or both, in a combination mode that quickly performs both the mammogram and the tomosynthesis scan while the breast is still compressed. PQRS 6045F: Fluoroscopic imaging is not utilized for breast tomosynthesis. TECHNICAL DOCUMENTATION: FINDING NUMBER: (1) ASSESSMENT: (1) JOB ID: [id number] [employer]- All Rights Reserved Reading location - IP/workstation name: [email or web address]
--- NOTE | 2018-04-26 10:31 | WOMENS IMAGING REPORT ---
EXAM DESCRIPTION: U/S BREAST UNILAT LIMITED COMPLETE DATE/TIME: 04/26/2018 10:19 am REASON FOR STUDY: RT BREAST N60.01 N60.01 SOLITARY CYST OF RIGHT BREAST FINDINGS: Please see combined report for performance of procedure and radiologic supervision and int erpretation. IMPRESSION: Please see combined report for performance of procedure and radiologic supervision and i nterpretation. Reading location - IP/workstation name: [email or web address]
== END ==
LOC: WI 09:37
PROVIDERS: ATTEND Surgery
DX: N60.01 Solitary cyst of right breast (principal)
CPT/HCPCS: 76642; 77066; G0279; 77062

== ENCOUNTER 2018-11-01 13:04 | Inpatient (IN) | payer BC, MEDICARE ==
[2018-11-01] MEDS ORDERED: ASPIRIN 81 MG TABLET, CHEWABLE PO ONE (13:46)
--- NOTE | 2018-11-01 13:48 | ER Document Report ---
ED Medical Screen (RME) - General Chief Complaint: Chest Pain Stated Complaint: LEFT ARM PAIN, JAW PAIN Time Seen by Provider: 11/01/18 13:46 Primary Care Provider: CHARLENE ROBLES MD [Primary Care Provider] - Follow up as needed Notes: Chief complaint: Dizziness and chest pain History of complain:( obtained from----patient) 63 years old female presents today with feeling lightheaded/dizziness with elevated blood pressure. And also having left-sided chest pain left arm numbness and left facial numbness too. Since this morning. Denies any fever chills. Denies any other constitutional symptoms PHYSICAL EXAMINATION: GENERAL: Well-appearing, well-nourished and in no acute distress. Obesity HEAD: Atraumatic, normocephalic. EYES: Pupils equal round and reactive to light, extraocular movements intact, conjunctiva are normal. ENT: Nares patent, oropharynx clear without exudates. Moist mucous membranes. NECK: Normal range of motion, supple without lymphadenopathy LUNGS: Breath sounds clear to auscultation bilaterally and equal. No wheezes rales or rhonchi. HEART: Regular rate and rhythm without murmurs ABDOMEN: Soft, nontender, nondistended abdomen. No guarding, no rebound. No masses appreciated. Dictation was performed using [employer] voice recognition software TRAVEL OUTSIDE OF THE [place] IN LAST 30 DAYS: No - Related Data Allergies/Adverse Reactions: Iodinated Contrast- Oral and IV Dye [Iodinated Contrast Media - IV Dye] Allergy (Severe, Verified 11/01/18 13:06) Chest pain pregabalin [From Lyrica] Allergy (Verified 11/01/18 13:06) trazodone [Trazodone] Allergy (Verified 11/01/18 13:06) Swelling of hands and/or feet bee sting Allergy (Severe, Uncoded 11/01/18 13:06) Swelling of hands and/or feet Past Medical History - Past Medical History Cardiac Medical History: Reports: Hx Hypertension Pulmonary Medical History: Reports: Hx Asthma, Hx COPD Endocrine Medical History: Reports: Hx Diabetes Mellitus Type 2 Renal/ Medical History: Denies: Hx Peritoneal Dialysis GI Medical History: Reports: Hx Gastroesophageal Reflux Disease Musculoskeltal Medical History: Reports Hx Arthritis Psychiatric Medical History: Reports: Hx Depression Past Surgical History: Reports: Hx Breast Surgery - Immunizations Hx Diphtheria, Pertussis, Tetanus Vaccination: Yes History of Influenza Vaccine for 06/2017 - 11/2017 Season: Yes Influenza Administration Date for 06/2017 - 11/2017 Season: 06/04/17 Physical Exam - Vital signs Vitals: Temp Pulse Resp BP Pulse Ox 98.8 F 85 16 132/75 H 95 11/01/18 13:23 11/01/18 13:23 11/01/18 13:23 11/01/18 13:23 11/01/18 13:23 Course - Vital Signs Vital signs: Temp Pulse Resp BP Pulse Ox 98.8 F 85 16 132/75 H 95 11/01/18 13:23 11/01/18 13:23 11/01/18 13:23 11/01/18 13:23 11/01/18 13:23 Doctor's Discharge - Discharge Referrals: CHARLENE ROBLES MD [Primary Care Provider] - Follow up as needed
--- NOTE | 2018-11-01 14:30 | RADIOLOGY REPORT (SQ) ---
EXAM DESCRIPTION: CT HEAD WITHOUT COMPLETED DATE/TIME: 11/01/2018 2:21 pm REASON FOR STUDY: Dizziness COMPARISON: None. TECHNIQUE: Axial images acquired through the brain without intravenous contrast. Images reviewed wi th bone, brain and subdural windows. Additional sagittal and coronal reconstructions were generated. Images stored on PACS. All CT scanners at this facility use dose modulation, iterative reconstruction, and/or weight based d osing when appropriate to reduce radiation dose to as low as reasonably achievable (ALARA). [facility]: Dose Right [facility]: CareDose [facility]: Dose Right [facility]: Teradose 4D [facility]: BeavEx RADIATION DOSE: CT Rad equipment meets quality standard of care and radiation dose reduction techniq ues were employed. CTDIvol: 53.2 mGy. DLP: 964 mGy-cm. mGy. LIMITATIONS: None. FINDINGS: VENTRICLES: Normal size and contour. CEREBRUM: No masses. No hemorrhage. No midline shift. No evidence for acute infarction. Normal gra y/white matter differentiation. No areas of low density in the white matter. CEREBELLUM: No masses. No hemorrhage. No alteration of density. No evidence for acute infarction. EXTRAAXIAL SPACES: No fluid collections. No masses. ORBITS AND GLOBE: No intra- or extraconal masses. Normal contour of globe without masses. CALVARIUM: No fracture. PARANASAL SINUSES: No fluid or mucosal thickening. SOFT TISSUES: No mass or hematoma. OTHER: No other significant finding. IMPRESSION: NORMAL BRAIN CT WITHOUT CONTRAST. EVIDENCE OF ACUTE STROKE: NO. COMMENT: Quality ID # [id number]: Final reports with documentation of one or more dose reduction techniques (e.g., Automated exposure control, adjustment of the mA and/or kV according to patient size, use of iterative reconstruction technique) TECHNICAL DOCUMENTATION: JOB ID: [id number] [employer]- All Rights Reserved Reading location - IP/workstation name: [email or web address]
--- NOTE | 2018-11-01 14:42 | RADIOLOGY REPORT (SQ) ---
EXAM DESCRIPTION: CHEST SINGLE VIEW COMPLETED DATE/TIME: 11/01/2018 2:26 pm REASON FOR STUDY: Chest painChest pain COMPARISON: None. EXAM PARAMETERS: NUMBER OF VIEWS: One view. TECHNIQUE: Single frontal radiographic view of the chest acquired. RADIATION DOSE: NA LIMITATIONS: None. FINDINGS: LUNGS AND PLEURA: No opacities, masses or pneumothorax. No pleural effusion. MEDIASTINUM AND HILAR STRUCTURES: No masses. Contour normal. HEART AND VASCULAR STRUCTURES: Heart normal in size. Normal vasculature. BONES: No acute findings. HARDWARE: None in the chest. OTHER: No other significant finding. IMPRESSION: NO ACUTE RADIOGRAPHIC FINDING IN THE CHEST. TECHNICAL DOCUMENTATION: JOB ID: [id number] [email or web address]- All Rights Reserved Reading location - IP/workstation name: [email or web address]
[2018-11-01] MEDS ORDERED: NITROGLYCERIN 0.4 MG/TAB 25 TAB/BOTTLE SL ONE (15:01)
[2018-11-01 15:11] LABS: ABSOLUTE BASOPHILS # (AUTO) 0.1 10^3/uL (0.0-0.2); ABSOLUTE EOSINOPHILS # (AUTO) 0.1 10^3/uL (0.0-0.6); ABSOLUTE LYMPHOCYTES (AUTO) 2.1 10^3/uL (0.5-4.7); ABSOLUTE MONOCYTES (AUTO) 0.7 10^3/uL (0.1-1.4); ABSOLUTE NEUT (AUTO) 5.9 10^3/uL (1.7-8.2); BASOPHILS % (AUTO) 1.3 % (0-2); EOSINOPHILS % (AUTO) 1.2 % (0-6); HEMATOCRIT 36.3 % (36.0-47.0); HEMOGLOBIN 12.1 g/dL (12.0-15.5); LYMPHOCYTES % (AUTO) 23.8 % (13-45); MEAN CORPUSCULAR HEMOGLOBIN 30.4 pg (27.0-33.4); MEAN CORPUSCULAR HGB CONC 33.4 g/dL (32.0-36.0); MEAN CORPUSCULAR VOLUME 91 fl (80-97); MONOCYTES % (AUTO) 7.7 % (3-13); PLATELET COUNT 262 10^3/uL (150-450); RED BLOOD COUNT 3.99 10^6/uL (3.72-5.28); RED CELL DISTRIBUTION WIDTH 15.1 % (11.5-14.0); TOTAL CELLS COUNTED % (AUTO) 100 %
[2018-11-01 15:31] LABS: ALANINE AMINOTRANSFERASE 26 U/L (9-52); ALBUMIN 4.3 g/dL (3.5-5.0); ALKALINE PHOSPHATASE 74 U/L (38-126); ANION GAP 13 (5-19); ASPARTATE AMINO TRANSFERASE 20 U/L (14-36); BILIRUBIN,DIRECT 0.3 mg/dL (0.0-0.4); BILIRUBIN,TOTAL 0.3 mg/dL (0.2-1.3); BLOOD UREA NITROGEN 12 mg/dL (7-20); CALCIUM 9.7 mg/dL (8.4-10.2); CARBON DIOXIDE 27 mmol/L (22-30); CHLORIDE 103 mmol/L (98-107); CREATINE KINASE 129 U/L (30-135); GLUCOSE 117 mg/dL (75-110); POTASSIUM 4.2 mmol/L (3.6-5.0); SODIUM 142.5 mmol/L (137-145); TOTAL PROTEIN 6.8 g/dL (6.3-8.2)
[2018-11-01 15:43] LABS: CREATINE KINASE MB 0.53 ng/mL (<4.55)
[2018-11-01 15:44] LABS: TROPONIN I < 0.012 ng/mL
[2018-11-01] MEDS ORDERED: NITROGLYCERIN 2% OINTMENT 1 GM PACKET TP ONE (16:35)
--- NOTE | 2018-11-01 16:46 | ER Document Report ---
ED General - General Chief Complaint: Chest Pain Stated Complaint: LEFT ARM PAIN, JAW PAIN Time Seen by Provider: 11/01/18 13:46 Primary Care Provider: CHARLENE ROBLES MD [ACTIVE STAFF] - Follow up as needed TRAVEL OUTSIDE OF THE [place] IN LAST 30 DAYS: No - HPI Notes: To the emergency department for evaluation of dizziness, chest pain. She cannot tell me whether she became dizzy or started having the chest pain first. She states she felt dizzy and checked her blood pressure. It was found to be elevated over 180 systolic. She also complains of substernal chest pain with radiation into the left arm and left neck and jaw. She describes a tingling sensation on the left side of her face that is now resolved. She describes the chest pain as a tightness, states it feels different from chest pain she has had in the past. She cannot tell me whether or not it is exertional. She does describe some mild associated nausea, states her shortness of breath is stable from her COPD. - Related Data Allergies/Adverse Reactions: Iodinated Contrast- Oral and IV Dye [Iodinated Contrast Media - IV Dye] Allergy (Severe, Verified 11/01/18 13:06) Chest pain pregabalin [From Lyrica] Allergy (Verified 11/01/18 13:06) trazodone [Trazodone] Allergy (Verified 11/01/18 13:06) Swelling of hands and/or feet bee sting Allergy (Severe, Uncoded 11/01/18 13:06) Swelling of hands and/or feet Past Medical History - General Information source: Patient - Social History Smoking Status: Former Smoker Frequency of alcohol use: None Drug Abuse: None Family History: Reviewed & Not Pertinent Patient has suicidal ideation: No Patient has homicidal ideation: No - Past Medical History Cardiac Medical History: Reports: Hx Hypertension Pulmonary Medical History: Reports: Hx Asthma, Hx COPD Endocrine Medical History: Reports: Hx Diabetes Mellitus Type 2 Renal/ Medical History: Denies: Hx Peritoneal Dialysis GI Medical History: Reports: Hx Gastroesophageal Reflux Disease Musculoskeletal Medical History: Reports Hx Arthritis Psychiatric Medical History: Reports: Hx Depression Past Surgical History: Reports: Hx Breast Surgery - Immunizations Hx Diphtheria, Pertussis, Tetanus Vaccination: Yes Hx Pneumococcal Vaccination: 06/04/17 Review of Systems - Review of Systems Constitutional: No symptoms reported EENT: No symptoms reported Cardiovascular: Chest pain, Dizziness Gastrointestinal: Nausea Skin: No symptoms reported Neurological/Psychological: No symptoms reported Physical Exam - Vital signs Vitals: Temp Pulse Resp BP Pulse Ox 98.8 F 85 16 132/75 H 95 11/01/18 13:23 11/01/18 13:23 11/01/18 13:23 11/01/18 13:23 11/01/18 13:23 - Notes Notes: Vital signs reviewed, please refer to chart. Patient is normocephalic, atraumatic. Pupils equal round, reactive to light. Neck is supple without meningismus. Heart is regular rate and rhythm. Lungs are clear to auscultation bilaterally. Abdomen is soft, nontender, normoactive bowel sounds throughout. Extremities without cyanosis, clubbing, edema. Peripheral pulses are equal. Skin is warm and dry. Patient is awake, alert, oriented x3. Cranial S2 12 are grossly intact without focal neurological deficits. Strength is plus 5 out of 5 bilateral upper and lower extremities, sensation is intact. Intact finger nose finger, rapid altering movements, [id number]. Reflux is symmetrical. Course - Re-evaluation Re-evalutation: 11/01/18 16:43 Patient resents the emergency department for evaluation of dizziness and chest pain. She had orders as initially placed by the doctor in triage. She was administered aspirin. CT scan of the head was found to be unremarkable. EKG showed no acute changes. Laboratory visitations were unremarkable as well. The patient was given 1 subungual nitroglycerin with complete resolution of her chest pain. Nitropaste was placed. I spoke with Dr. Landaverde, he will admit the patient for further care. - Vital Signs Vital signs: Temp Pulse Resp BP Pulse Ox 98.8 F 85 20 110/80 95 11/01/18 13:23 11/01/18 13:23 11/01/18 16:01 11/01/18 16:01 11/01/18 16:01 - Laboratory Result Diagrams: 11/01/18 15:00 11/01/18 15:00 Laboratory results interpreted by me: 11/01/18 11/01/18 15:00 15:00 RDW 15.1 H Est GFR (Non-Af Amer) 59 L Glucose 117 H - Diagnostic Test Radiology reviewed: Reports reviewed - CT scan of the head revealed no acute process. No acute cardia pulmonary disease noted on chest x-ray. - EKG Interpretation by Me Additional EKG results interpreted by me: 11/01/18 16:47 EKG reveals a sinus mechanism with a rate of 79 bpm. Normal axis and intervals. No acute ST changes concerning for ischemia or infarction. - Consults Eliazar Time consulted: 16:48 - We will admit the patient Discharge - Discharge Clinical Impression: Dizziness, Chest pain Condition: Stable Disposition: ADMITTED OBSERVATION Admitting Provider: Eliazar Unit Admitted: Telemetry Referrals: CHARLENE ROBLES MD [ACTIVE STAFF] - Follow up as needed JUSTINE LANDAVERDE MD [Primary Care Provider] - Follow up as needed
[2018-11-01] MEDS ORDERED: OXYCODONE-ACETAMINOPHEN 5-325 MG TABLET PO PRN (16:50)
[2018-11-01] MEDS ORDERED: ACETAMINOPHEN 325 MG TABLET PO PRN (16:50)
[2018-11-01] MEDS ORDERED: ONDANSETRON HCL INJ/PF 4 MG/2 ML SDV IV PRN (16:50)
[2018-11-01] MEDS ORDERED: IPRATROPIUM/ALBUTEROL 0.5-2.5 MG/3 ML AMPUL NEB PRN (16:50)
[2018-11-01] MEDS ORDERED: GLUCAGON,HUMAN RECOMB 1 MG INJ IM PRN (16:54)
[2018-11-01] MEDS ORDERED: DEXTROSE 50%-WATER 25 GM/50 ML DISP.SYRIN IV PRN ×2 (16:54)
[2018-11-01] MEDS ORDERED: DEXTROSE 40% GEL 15 GM TUBE PO PRN ×2 (16:54)
--- NOTE | 2018-11-01 17:34 | PDOC H&P ---
History of Present Illness Admission Date/PCP: JUSTINE LANDAVERDE MD Patient complains of: Dizziness and a chest pain History of Present Illness: TOMMY LUEVANO is a 63 year old female This is a 63-year-old female with a significant history of the type 2 diabetes mellitus history of the hypertension's hyperlipidemia history of the previous TIA x3 and history of rheumatoid arthritis and fibromyalgia depression and a sleep apnea and multiple medical problems came to the emergency department with a complaining of feeling dizzy left arm pain and the chest pain and some numbness Patient denied any short of breath denied any nausea no vomiting Patient initial workup including the CT of the head was negative EKG and a cardiac enzyme was negative and ER physicians called to admit for further rule out acute IA Patient is currently see the cardiology Dr. Snow as outpatient patient is currently denied any chest pain After receiving the nitroglycerin Patient's other than that pretty much the same discussed with the on the bedside decided to admit Patient also follow outpatients rheumatology Dr. Rice Past Medical History Cardiac Medical History: Reports: Hypertension Pulmonary Medical History: Reports: Asthma, Chronic Obstructive Pulmonary Disease (COPD) Neurological Medical History: Reports: Ischemic CVA Endocrine Medical History: Reports: Diabetes Mellitus Type 2 GI Medical History: Reports: Gastroesophageal Reflux Disease Musculoskeltal Medical History: Reports: Arthritis Psychiatric Medical History: Reports: Depression Social History Smoking Status: Former Smoker Frequency of Alcohol Use: None Hx Recreational Drug Use: No Hx Prescription Drug Abuse: No Family History Family History: Reviewed & Not Pertinent Parental Family History Reviewed: Yes Children Family History Reviewed: Yes Sibling(s) Family History Reviewed.: Yes Medication/Allergy Home Medications: Fluoxetine HCl [Prozac] 1 cap PO DAILY 07/10/15 Amlodipine Besylate [Norvasc 5 mg Tablet] 5 mg PO Q12 #60 tablet 07/20/15 Aspirin [Ecotrin 81 mg EC Tablet] 81 mg PO DAILY #0 tabec 11/20/15 Clopidogrel Bisulfate [Plavix 75 mg Tablet] 75 mg PO DAILY #30 tablet 11/20/15 Gabapentin 600 mg PO TID #0 tablet 11/20/15 Olmesartan Medoxomil [Benicar] 40 mg PO QAM 07/10/17 Omeprazole 40 mg PO QAM 07/10/17 Oxycodone HCl/Acetaminophen [Oxycodone-Acetaminophen 10-325] 1 each PO BID 07/10/17 Albuterol Sulfate [Proair HFA Inhalation Aerosol 8.5 gm MDI] 1 puff IH Q4 PRN 07/11/17 Docusate Sodium [Colace 100 mg Capsule] 100 mg PO BID #60 capsule 07/20/17 Oxycodone HCl [Oxycontin Sr 10 mg Tablet] 10 mg PO Q12A #30 tab.sr.12h 07/20/17 Chrom Howie/Brindal Donovan [Garcinia Cambogia Tablet] 1 tab PO DAILY PRN 11/23/17 Fluticasone Propionate [Flonase Nasal Corona 50 Mcg/Corona 16 gm] 1 puff IH DAILY 11/23/17 Hydrochlorothiazide 25 mg PO DAILY 11/23/17 L. Acidophilus/Pectin, [place] [Acidophilus Probiotic Capsule] 1 each PO DAILY 11/23/17 Meloxicam [Mobic] 7.5 mg PO DAILY 11/23/17 Multivit-Minerals/Folic Acid [Women's Multivitamin Gummies] 200 mcg PO DAILY 11/23/17 Polyethylene Glycol 3350 [Miralax Powder 17 gm/Packet] 17 gm PO PRN PRN 11/23/17 Tofacitinib Citrate [Xeljanz] 5 mg PO DAILY 11/23/17 Allergies/Adverse Reactions: Iodinated Contrast- Oral and IV Dye [Iodinated Contrast Media - IV Dye] Allergy (Severe, Verified 11/01/18 13:06) Chest pain pregabalin [From Lyrica] Allergy (Verified 11/01/18 13:06) trazodone [Trazodone] Allergy (Verified 11/01/18 13:06) Swelling of hands and/or feet bee sting Allergy (Severe, Uncoded 11/01/18 13:06) Swelling of hands and/or feet Review of Systems Constitutional: PRESENT: weakness. ABSENT: chills, fever(s), headache(s), weight gain, weight loss Eyes: ABSENT: visual disturbances Ears: ABSENT: hearing changes Cardiovascular: PRESENT: chest pain. ABSENT: dyspnea on exertion, edema, orthropnea, palpitations Respiratory: ABSENT: cough, hemoptysis Gastrointestinal: ABSENT: abdominal pain, constipation, diarrhea, hematemesis, hematochezia, nausea, vomiting Genitourinary: ABSENT: dysuria, hematuria Musculoskeletal: ABSENT: joint swelling Integumentary: ABSENT: rash, wounds Neurological: PRESENT: dizziness. ABSENT: abnormal gait, abnormal speech, confusion, focal weakness, syncope Psychiatric: ABSENT: anxiety, depression, homidical ideation, suicidal ideation Endocrine: ABSENT: cold intolerance, heat intolerance, menstrual abnormalities, polydipsia, polyuria Hematologic/Lymphatic: ABSENT: easy bleeding, easy bruising, lymphadenopathy Physical Exam Vital Signs: Temp Pulse Resp BP Pulse Ox 98.8 F 85 20 110/80 95 11/01/18 13:23 11/01/18 13:23 11/01/18 16:01 11/01/18 16:01 11/01/18 16:01 Intake & Output 10/31/18 11/01/18 11/02/18 06:59 06:59 06:59 Weight 107.8 kg General appearance: PRESENT: no acute distress, well-developed, well-nourished Head exam: PRESENT: atraumatic, normocephalic Eye exam: PRESENT: conjunctiva pink, EOMI, PERRLA. ABSENT: scleral icterus Ear exam: PRESENT: normal external ear exam Mouth exam: PRESENT: moist, tongue midline Neck exam: PRESENT: full ROM. ABSENT: carotid bruit, JVD, lymphadenopathy, thyromegaly Respiratory exam: PRESENT: clear to auscultation carmencita Cardiovascular exam: PRESENT: RRR, +S1, +S2. ABSENT: diastolic murmur, rubs, systolic murmur Vascular exam: PRESENT: normal capillary refill GI/Abdominal exam: PRESENT: normal bowel sounds, soft. ABSENT: distended, guarding, mass, organolmegaly, rebound, tenderness Rectal exam: PRESENT: deferred Extremities exam: ABSENT: pedal edema Musculoskeletal exam: PRESENT: ambulatory Neurological exam: PRESENT: alert, awake, oriented to person, oriented to place, oriented to time, oriented to situation, reflexes normal, CN II-XII grossly intact. ABSENT: motor sensory deficit Psychiatric exam: PRESENT: appropriate affect, normal mood. ABSENT: homicidal ideation, suicidal ideation Skin exam: PRESENT: dry, intact, warm. ABSENT: cyanosis, rash Results Laboratory Results: 11/01/18 15:00 11/01/18 15:00 11/01/18 11/01/18 15:00 15:00 WBC 9.0 RBC 3.99 Hgb 12.1 Hct 36.3 MCV 91 MCH 30.4 MCHC 33.4 RDW 15.1 H Plt Count 262 Seg Neutrophils % 66.0 Lymphocytes % 23.8 Monocytes % 7.7 Eosinophils % 1.2 Basophils % 1.3 Absolute Neutrophils 5.9 Absolute Lymphocytes 2.1 Absolute Monocytes 0.7 Absolute Eosinophils 0.1 Absolute Basophils 0.1 Sodium 142.5 Potassium 4.2 Chloride 103 Carbon Dioxide 27 Anion Gap 13 BUN 12 Creatinine 0.95 Est GFR ( Amer) > 60 Est GFR (Non-Af Amer) 59 L Glucose 117 H Calcium 9.7 Total Bilirubin 0.3 AST 20 ALT 26 Alkaline Phosphatase 74 Total Protein 6.8 Albumin 4.3 11/01/18 11/01/18 15:00 15:00 Creatine Kinase 129 CK-MB (CK-2) 0.53 Troponin I < 0.012 Impressions: Chest X-Ray 11/01/18 13:46 IMPRESSION: NO ACUTE RADIOGRAPHIC FINDING IN THE CHEST. Head CT 11/01/18 13:47 IMPRESSION: NORMAL BRAIN CT WITHOUT CONTRAST. EVIDENCE OF ACUTE STROKE: NO. 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 (4) Chronic obstructive pulmonary disease Qualifiers: COPD type: unspecified COPD Qualified Code(s): J44.9 - Chronic obstructive pulmonary disease, unspecified Is this a current diagnosis for this admission?: Yes Plan: Continues to DuoNeb nebulizer (5) Hypertension Qualifiers: Hypertension type: essential hypertension Qualified Code(s): I10 - Essential (primary) hypertension Is this a current diagnosis for this admission?: Yes Plan: Continues to current medications (6) Rheumatoid arthritis Qualifiers: Rheumatoid arthritis location: multiple sites Rheumatoid factor presence: without rheumatoid factor Qualified Code(s): M06.09 - Rheumatoid arthritis without rheumatoid factor, multiple sites Is this a current diagnosis for this admission?: Yes Plan: 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 (7) Type 2 diabetes mellitus Qualifiers: 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 insulin use: without correction use Is this a current diagnosis for this admission?: Yes Plan: Sliding scale - Time Time Spent: 30 to 50 Minutes Medications reviewed and adjusted accordingly: Yes Anticipated discharge: Home Within: Other - Inpatient Certification Based on my medical assessment, after consideration of the patient's comorbidities, presenting symptoms, or acuity I expect that the services needed warrant INPATIENT care.: Yes I certify that my determination is in accordance with my understanding of Medicare's requirements for reasonable and necessary INPATIENT services [42 CFR 412.3e].: Yes Medical Necessity: Significant Comorbidiites Make Outpatient Treatment Too Risky, Need Close Monitoring Due to Risk of Patient Decompensation Post Hospital Care: D/C Box Estimator Documentation - Plan Summary Plan Summary: Admit the patient in IMCU See other MD orders pt refuse for mri due to clostophobic and last time try she got pain attack and even open one she had issue pt fel better now no nurolgical s/s now
[2018-11-01] MEDS ORDERED: NITROGLYCERIN 2% OINTMENT 1 GM PACKET ONE (18:48)
[2018-11-01] MEDS: LANSOPRAZOLE 15 MG TAB.RAP.DR PO SCH (18:55)
[2018-11-01] MEDS: DOCUSATE SODIUM 100 MG CAPSULE PO SCH (18:56)
[2018-11-01] MEDS ORDERED: OXYCODONE HCL SR 10 MG TABLET PO SCH (22:00)
--- NOTE | 2018-11-01 22:21 | EKG REPORT ---
SEVERITY:- OTHERWISE NORMAL ECG - SINUS RHYTHM VENTRICULAR PREMATURE COMPLEX : Confirmed by: Fabiola Snow 01-Nov-2018 22:20:11
--- NOTE | 2018-11-01 22:21 | EKG REPORT ---
SEVERITY:- NORMAL ECG - SINUS RHYTHM : Confirmed by: Fabiola Snow 01-Nov-2018 22:20:16
[2018-11-01] MEDS ORDERED: TEMAZEPAM 7.5 MG CAPSULE PO ONE (22:30)
[2018-11-01] MEDS: INSULIN LISPRO 100 UNIT/ML 3 ML VIAL SUBCUT SCH (23:12)
--- NOTE | 2018-11-01 23:18 | PDOC PROGRESS REPORT ---
Subjective Progress Note for:: 11/01/18 Subjective:: Ms Valdez is a 63-year-old female with a significant history of the type 2 diabetes mellitus history of the hypertension's hyperlipidemia history of the previous TIA x3 and history of rheumatoid arthritis and fibromyalgia depression and a sleep apnea and multiple medical problems came to the emergency department with a complaining of feeling dizzy left arm pain and the chest pain and some numbness Patient denied any short of breath denied any nausea no vomiting Patient initial workup including the CT of the head was negative EKG and a cardiac enzyme was negative. Reason For Visit: CHEST PAIN/DIZZINESS Physical Exam Vital Signs: Temp Pulse Resp BP Pulse Ox 98.6 F 76 24 H 125/53 L 96 11/01/18 21:12 11/01/18 21:12 11/01/18 21:12 11/01/18 21:12 11/01/18 21:12 Intake & Output 10/31/18 11/01/18 11/02/18 06:59 06:59 06:59 Weight 108.6 kg General appearance: PRESENT: no acute distress, well-developed, well-nourished Head exam: PRESENT: atraumatic, normocephalic Eye exam: PRESENT: conjunctiva pink, EOMI, PERRLA. ABSENT: scleral icterus Ear exam: PRESENT: normal external ear exam Mouth exam: PRESENT: moist, tongue midline Neck exam: ABSENT: carotid bruit, JVD, lymphadenopathy, thyromegaly Respiratory exam: PRESENT: clear to auscultation carmencita. ABSENT: rales, rhonchi, wheezes Cardiovascular exam: PRESENT: RRR, +S1, +S2, other - chest wall tenderness left lower chest noted.. ABSENT: diastolic murmur, rubs, systolic murmur Pulses: PRESENT: normal dorsalis pedis pul Vascular exam: PRESENT: normal capillary refill GI/Abdominal exam: PRESENT: normal bowel sounds, soft. ABSENT: distended, guarding, mass, organolmegaly, rebound, tenderness Rectal exam: PRESENT: deferred Extremities exam: PRESENT: full ROM. ABSENT: calf tenderness, clubbing, pedal edema Neurological exam: PRESENT: alert, awake, oriented to person, oriented to place, oriented to time, oriented to situation, CN II-XII grossly intact. ABSENT: motor sensory deficit Psychiatric exam: PRESENT: appropriate affect, normal mood. ABSENT: homicidal ideation, suicidal ideation Skin exam: PRESENT: dry, intact, warm. ABSENT: cyanosis, rash Results Laboratory Results: 11/01/18 15:00 11/01/18 15:00 11/01/18 11/01/18 11/01/18 15:00 15:00 15:00 WBC 9.0 RBC 3.99 Hgb 12.1 Hct 36.3 MCV 91 MCH 30.4 MCHC 33.4 RDW 15.1 H Plt Count 262 Seg Neutrophils % 66.0 Lymphocytes % 23.8 Monocytes % 7.7 Eosinophils % 1.2 Basophils % 1.3 Absolute Neutrophils 5.9 Absolute Lymphocytes 2.1 Absolute Monocytes 0.7 Absolute Eosinophils 0.1 Absolute Basophils 0.1 Sodium 142.5 Potassium 4.2 Chloride 103 Carbon Dioxide 27 Anion Gap 13 BUN 12 Creatinine 0.95 Est GFR ( Amer) > 60 Est GFR (Non-Af Amer) 59 L Glucose 117 H Calcium 9.7 Total Bilirubin 0.3 AST 20 ALT 26 Alkaline Phosphatase 74 Total Protein 6.8 Albumin 4.3 TSH 2.07 11/01/18 11/01/18 15:00 15:00 Creatine Kinase 129 CK-MB (CK-2) 0.53 Troponin I < 0.012 EKG Comments: EKG: NSR, No acute ST-T changes noted Impressions: Chest X-Ray 11/01/18 13:46 IMPRESSION: NO ACUTE RADIOGRAPHIC FINDING IN THE CHEST. Head CT 11/01/18 13:47 IMPRESSION: NORMAL BRAIN CT WITHOUT CONTRAST. EVIDENCE OF ACUTE STROKE: NO. Assessment & Plan - Diagnosis (1) Chest pain Qualifiers: Chest pain type: unspecified Qualified Code(s): R07.9 - Chest pain, un specified Is this a current diagnosis for this admission?: Yes (2) Type 2 diabetes mellitus Qualifiers: Diabetes mellitus longterm insulin use: without primary care sales representative use Diabetes mellitus complication status: with unspecified complications Qualified Code(s): E11.8 - Type 2 diabetes mellitus with unspecified complications Is this a current diagnosis for this admission?: Yes (3) Chronic obstructive pulmonary disease Qualifiers: COPD type: unspecified COPD Qualified Code(s): J44.9 - Chronic obstructive pulmonary disease, unspecified Is this a current diagnosis for this admission?: Yes (4) Rheumatoid arthritis Qualifiers: Rheumatoid arthritis location: unspecified site Rheumatoid factor presence: unspecified presence Qualified Code(s): M06.9 - Rheumatoid arthritis, unspecified Is this a current diagnosis for this admission?: Yes - Notes Notes: Chest pain is felt to be musculoskeletal. Patient however has significant cardiac risk factors. Patient does have valves double chest pain. At this point feel that should patient cardiac enzymes remain negative and EKG remain negative than patient could be discharged with further evaluation with a stress testing as an outpatient. This was discussed with the patient. She is agreeable with this approach. Diabetes: patient stable. COPD: currently stable. Rheumatoid arthritis: continue current management. - Time Time with patient: Greater than 35 minutes Medications reviewed and adjusted accordingly: Yes
[2018-11-02 01:11] LABS: CREATINE KINASE MB 0.41 ng/mL (<4.55)
[2018-11-02 01:16] LABS: TROPONIN I < 0.012 ng/mL
[2018-11-02] MEDS: LANSOPRAZOLE 15 MG TAB.RAP.DR PO SCH (05:56)
[2018-11-02 06:38] LABS: ABSOLUTE EOSINOPHILS # (AUTO) 0.1 10^3/uL (0.0-0.6); ABSOLUTE LYMPHOCYTES (AUTO) 1.7 10^3/uL (0.5-4.7); ABSOLUTE MONOCYTES (AUTO) 0.6 10^3/uL (0.1-1.4); BASOPHILS % (AUTO) 0.6 % (0-2); HEMATOCRIT 33.8 % (36.0-47.0); HEMOGLOBIN 11.2 g/dL (12.0-15.5); LYMPHOCYTES % (AUTO) 22.4 % (13-45); MEAN CORPUSCULAR HEMOGLOBIN 30.1 pg (27.0-33.4); MEAN CORPUSCULAR HGB CONC 33.2 g/dL (32.0-36.0); MEAN CORPUSCULAR VOLUME 91 fl (80-97); MONOCYTES % (AUTO) 7.5 % (3-13); PLATELET COUNT 252 10^3/uL (150-450); RED BLOOD COUNT 3.73 10^6/uL (3.72-5.28); RED CELL DISTRIBUTION WIDTH 15.5 % (11.5-14.0); SEGMENTED NEUTROPHILS % (AUTO) 67.5 % (42-78); TOTAL CELLS COUNTED % (AUTO) 100 %; WHITE BLOOD COUNT 7.4 10^3/uL (4.0-10.5)
[2018-11-02 07:03] LABS: ANION GAP 11 (5-19); BLOOD UREA NITROGEN 12 mg/dL (7-20); CALCIUM 9.1 mg/dL (8.4-10.2); CARBON DIOXIDE 27 mmol/L (22-30); CHLORIDE 103 mmol/L (98-107); CREATINE KINASE 103 U/L (30-135); GLUCOSE 147 mg/dL (75-110); SODIUM 140.9 mmol/L (137-145)
[2018-11-02 07:12] LABS: NT PRO BNP 54 pg/mL (5-900)
[2018-11-02 07:25] LABS: TROPONIN I < 0.012 ng/mL
--- NOTE | 2018-11-02 08:24 | RADIOLOGY REPORT (SQ) ---
EXAM DESCRIPTION: CAROTID DOPPLER COMPLETED DATE/TIME: 11/01/2018 8:39 pm REASON FOR STUDY: dizziness COMPARISON: CT brain 11/01/2018 Carotid Doppler 11/18/2015 AP chest 10/24/2018 TECHNIQUE: Grayscale ultrasound, Doppler velocity and spectra, and color Doppler images acquired of the extra-cranial carotid and vertebral arteries. Images stored on PACS. LIMITATIONS: None. FINDINGS: RIGHT CAROTID CCA Velocities: Within normal limits. Right common carotid artery peak systolic velocity 0.86 m/sec. ICA Velocities Peak systolic 0.65 m/s. End diastolic 0.09 m/s. Proximal ICA/CCA peak systolic ratio 1.0. Spectra normal. No significant plaque. LEFT CAROTID CCA Velocities: Within normal limits. Left common carotid artery peak systolic velocity 1.1 m/sec ICA Velocities Peak systolic 0.61 m/s. End diastolic 0.1 m/s. Proximal ICA/CCA peak systolic ratio 0.7. Spectra normal. No significant plaque. VERTEBRAL ARTERIES: There is antegrade pulsatile right vertebral artery flow identified. Prior exam 11/18/2015 identified pulsatile left vertebral artery flow. We were unable to visualize left vertebra l artery flow today. This is a change from 2016. Consider MRI brain and MRA exam of the carotids an d vertebral artery is in the neck and [place] to evaluate for vertebrobasilar disease SUBCLAVIAN ARTERIES: Not evaluated. OTHER: No other significant finding. IMPRESSION: No flow significant stenosis of the carotid bifurcations. Antegrade pulsatile right vertebral artery flow is identified today. No left vertebral artery flow is identified today. This represents a change from 2016. Given sympto ms dizziness, MRI brain and MRA exam carotid bifurcations of [place] recommended to evaluate for vertebrobasilar insufficiency COMMENT: Quality ID #[id number]: Velocity criteria are extrapolated from the diameter data as defined by t he Society of Radiologists in Ultrasound Consensus Conference. Radiology 2003: 229; 340-346. TECHNICAL DOCUMENTATION: JOB ID: [id number] [employer]- All Rights Reserved Reading location - IP/workstation name: [email or web address]
[2018-11-02] MEDS ORDERED: DOCUSATE SODIUM 100 MG CAPSULE PO PRN (08:39)
[2018-11-02] MEDS ORDERED: LANSOPRAZOLE 30 MG TAB.RAP.DR PO SCH (09:15)
[2018-11-02] MEDS: INSULIN LISPRO 100 UNIT/ML 3 ML VIAL SUBCUT SCH ×2 (09:25→12:46)
[2018-11-02] MEDS: DOCUSATE SODIUM 100 MG CAPSULE PO SCH (09:48)
[2018-11-02] MEDS ORDERED: LUBIPROSTONE 24 MCG CAPSULE PO SCH (10:00)
[2018-11-02] MEDS ORDERED: AMLODIPINE BESYLATE 5 MG TABLET PO SCH (10:00)
[2018-11-02] MEDS ORDERED: RANOLAZINE 500 MG TAB.SR.12H PO SCH (10:00)
[2018-11-02] MEDS ORDERED: METFORMIN HCL 500 MG TABLET PO SCH (10:00)
[2018-11-02] MEDS ORDERED: (PENDING PHARMACY ID) (Fluoxetine Hcl [Prozac] 20 MG) PO SCH (10:00)
[2018-11-02] MEDS ORDERED: FLUOXETINE HCL 20 MG CAPSULE PO SCH (10:00)
[2018-11-02] MEDS ORDERED: TEMAZEPAM 7.5 MG CAPSULE PO SCH ×2 (10:00→22:00)
[2018-11-02] MEDS ORDERED: ASPIRIN 81 MG TABLET, ENT COATED PO SCH (10:00)
[2018-11-02] MEDS ORDERED: (PENDING PHARMACY ID) (Guaifenesin [Mucinex] 600 MG) PO SCH (10:00)
[2018-11-02] MEDS ORDERED: HYDROCHLOROTHIAZIDE 25 MG TABLET PO SCH (10:00)
[2018-11-02] MEDS ORDERED: OXYCODONE HCL SR 10 MG TABLET PO SCH (10:00)
[2018-11-02] MEDS ORDERED: (PENDING PHARMACY ID) (Naloxegol Oxalate 25 MG) PO SCH (10:00)
[2018-11-02] MEDS ORDERED: ATORVASTATIN CALCIUM 20 MG TABLET PO SCH (10:00)
[2018-11-02] MEDS ORDERED: (PENDING PHARMACY ID) (Olmesartan Medoxomil [Benicar] 40 MG) PO SCH (10:00)
[2018-11-02] MEDS ORDERED: GUAIFENESIN 600 MG TABLET.SA PO SCH (10:00)
[2018-11-02] MEDS ORDERED: LOSARTAN POTASSIUM 50 MG TABLET PO SCH (10:00)
[2018-11-02] MEDS ORDERED: METHIMAZOLE 5 MG TABLET PO SCH (10:00)
[2018-11-02] MEDS ORDERED: ENOXAPARIN SODIUM INJ 40 MG/0.4 ML DISP.SYRIN SUBCUT SCH (10:00)
[2018-11-02] MEDS ORDERED: FLUTICASONE/UMECLIDIN/VILANTER 100-62.5-25 MCG/DOSE IH SCH (10:00)
[2018-11-02] MEDS ORDERED: BACLOFEN 10 MG TABLET PO SCH (10:00)
[2018-11-02] MEDS ORDERED: CLOPIDOGREL BISULFATE 75 MG TABLET PO SCH (10:00)
--- NOTE | 2018-11-02 13:26 | PDOC DISCHARGE SUMMARY ---
General - Admit/Disc Date/PCP Admission Date/Primary Care Provider: 11/01/18 17:01 JUSTINE LANDAVERDE MD Discharge Date: 11/02/18 - Discharge Diagnosis (1) Chest pain Is this a current diagnosis for this admission?: Yes Summary: Patient's all cardiac workup is negative Follow Dr. Snow outpatients for the stress test (2) Dizziness Is this a current diagnosis for this admission?: Yes Summary: Patient CT head is negative Ultrasound of the carotids shows some stenosis in the vertebral artery patient is currently asymptomatic Patients do not want to do the MRI and MRA of the head and neck Patient's wants to go home Continues to aspirin Plavix and statin If any weakness in his speech issues complete the ER Will schedule outpatient open MRI and MRA and outpatients vascular surgery evaluations Able to take any IV contrast dye so unable to do any CT scan with angiogram (3) Adrenal mass Is this a current diagnosis for this admission?: Yes 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 (7) Type 2 diabetes mellitus Is this a current diagnosis for this admission?: Yes Summary: Currently all stable - Additional Information Resuscitation Status: Full Code Discharge Activity: Activity As Tolerated Home Medications: Fluoxetine HCl [Prozac] 20 mg PO DAILY 07/10/15 Amlodipine Besylate [Norvasc 5 mg Tablet] 5 mg PO Q12 #60 tablet 07/20/15 Aspirin [Ecotrin 81 mg EC Tablet] 81 mg PO DAILY #0 tabec 11/20/15 Clopidogrel Bisulfate [Plavix 75 mg Tablet] 75 mg PO DAILY #30 tablet 11/20/15 Gabapentin 600 mg PO TID #0 tablet 11/20/15 Omeprazole 40 mg PO QAM 07/10/17 Oxycodone HCl/Acetaminophen [Oxycodone-Acetaminophen 10-325] 1 each PO QIDP PRN 07/10/17 Albuterol Sulfate [Proair HFA Inhalation Aerosol 8.5 gm MDI] 1 puff IH Q4 PRN 07/11/17 Hydrochlorothiazide 25 mg PO DAILY 11/23/17 Atorvastatin Calcium [Lipitor 20 mg Tablet] 20 mg PO DAILY 11/01/18 Baclofen [Baclofen 10 mg Tablet] 10 mg PO TID 11/01/18 Docusate Sodium [Colace 100 mg Capsule] 100 mg PO BIDP PRN 11/01/18 Fluticasone/Umeclidin/Vilanter [Trelegy 100-62.5-25 Mcg Ellipta 14 Dose/Dpi] 1 puff IH DAILY 11/01/18 Guaifenesin [Mucinex] 600 mg PO DAILY 11/01/18 Lidocaine [Lidoderm 5% (700 mg) Transdermal Patch] 1 patch TD Q12H 11/01/18 Lubiprostone [Amitiza 24 Mcg Capsule] 24 mcg PO DAILY 11/01/18 Metformin HCl [Glucophage 500 mg Tablet] 500 mg PO BID 11/01/18 Methimazole [Tapazole 5 mg Tablet] 5 mg PO DAILY 11/01/18 Naloxegol Oxalate [Movantik 25 mg Tablet] 25 mg PO DAILY 11/01/18 Olmesartan Medoxomil [Benicar] 40 mg PO DAILY 11/01/18 Oxycodone HCl [Oxycontin Sr 10 mg Tablet] 10 mg PO Q12 11/01/18 Ranolazine [Ranexa 500 mg Tab.sr] 500 mg PO Q12 11/01/18 Semaglutide [Ozempic] 0.5 mg SQ Q7D 11/01/18 Temazepam [Restoril 7.5 mg Capsule] 7.5 mg PO Q12 11/01/18 History of Present Illness History of Present Illness: OTMMY LUEVANO is a 63 year old female This is a 63-year-old female with a significant history of the type 2 diabetes mellitus history of the hypertension's hyperlipidemia history of the previous TIA x3 and history of rheumatoid arthritis and fibromyalgia depression and a sleep apnea and multiple medical problems came to the emergency department with a complaining of feeling dizzy left arm pain and the chest pain and some numbness Patient denied any short of breath denied any nausea no vomiting Patient initial workup including the CT of the head was negative EKG and a ca rdiac enzyme was negative and ER physicians called to admit for further rule out acute OK Patient is currently see the cardiology Dr. Snow as outpatient patient is currently denied any chest pain After receiving the nitroglycerin Patient's other than that pretty much the same discussed with the on the bedside decided to admit Patient also follow outpatients rheumatology Dr. Rice Hospital Course Hospital Course: This is a 62-year-old female with multiple medical problems as above presents with the symptoms with the chest pain and dizziness Patient initial workup was all stable Patient seen by Dr. Snow cardiology and suggest follow outpatient Patient also have a carotid Doppler was done with so some which to further evaluations of the vertebral arteries stenosis but patients do not want to go for any MRI and MRA and patient unable to take any IV contrast due to the allergies Patient is already on aspirin Plavix and a statin Patient's walk with the physical therapy without any problems Patient does not have any strokelike symptoms The patient's wants to go home's Discussed with the patient about the possible for the strokes but patients wants to follow outpatient we will schedule outpatients vascular surgery and may be consider open MRI if the patient is agree Discussed with the if any weakness in his speech any visual problem come to the ER or call EMS Follow outpatients cardiology for stress test Physical Exam Vital Signs: Temp Pulse Resp BP Pulse Ox 98.9 F 96 20 144/71 H 98 11/02/18 11:31 11/02/18 11:31 11/02/18 11:31 11/02/18 11:31 11/02/18 11:31 Intake & Output 11/01/18 11/02/18 11/03/18 06:59 06:59 06:59 Intake Total 700 Output Total 550 Balance 150 Weight 107.4 kg General appearance: PRESENT: no acute distress, well-developed, well-nourished Head exam: PRESENT: atraumatic, normocephalic Eye exam: PRESENT: conjunctiva pink, EOMI, PERRLA. ABSENT: scleral icterus Ear exam: PRESENT: normal external ear exam Mouth exam: PRESENT: moist, tongue midline Neck exam: PRESENT: full ROM. ABSENT: carotid bruit, JVD, lymphadenopathy, thyromegaly Respiratory exam: PRESENT: clear to auscultation [place] Cardiovascular exam: PRESENT: RRR. ABSENT: diastolic murmur, rubs, systolic murmur Vascular exam: PRESENT: normal capillary refill GI/Abdominal exam: PRESENT: normal bowel sounds, soft. ABSENT: distended, guarding, mass, organolmegaly, rebound, tenderness Rectal exam: PRESENT: deferred Musculoskeletal exam: PRESENT: ambulatory Neurological exam: PRESENT: alert, awake, oriented to person, oriented to place, oriented to time, oriented to situation, reflexes normal, CN II-XII grossly intact, normal gait. ABSENT: motor sensory deficit Psychiatric exam: PRESENT: appropriate affect, normal mood. ABSENT: homicidal ideation, suicidal ideation Skin exam: PRESENT: dry, intact, warm. ABSENT: cyanosis, rash Results Laboratory Results: 11/02/18 06:05 11/02/18 06:05 11/01/18 11/01/18 11/01/18 15:00 15:00 15:00 WBC 9.0 RBC 3.99 Hgb 12.1 Hct 36.3 MCV 91 MCH 30.4 MCHC 33.4 RDW 15.1 H Plt Count 262 Seg Neutrophils % 66.0 Lymphocytes % 23.8 Monocytes % 7.7 Eosinophils % 1.2 Basophils % 1.3 Absolute Neutrophils 5.9 Absolute Lymphocytes 2.1 Absolute Monocytes 0.7 Absolute Eosinophils 0.1 Absolute Basophils 0.1 Sodium 142.5 Potassium 4.2 Chloride 103 Carbon Dioxide 27 Anion Gap 13 BUN 12 Creatinine 0.95 Est GFR ( Amer) > 60 Est GFR (Non-Af Amer) 59 L Glucose 117 H Calcium 9.7 Magnesium Total Bilirubin 0.3 AST 20 ALT 26 Alkaline Phosphatase 74 Total Protein 6.8 Albumin 4.3 TSH 2.07 11/02/18 11/02/18 06:05 06:05 WBC 7.4 RBC 3.73 Hgb 11.2 L Hct 33.8 L MCV 91 MCH 30.1 MCHC 33.2 RDW 15.5 H Plt Count 252 Seg Neutrophils % 67.5 Lymphocytes % 22.4 Monocytes % 7.5 Eosinophils % 2.0 Basophils % 0.6 Absolute Neutrophils 5.0 Absolute Lymphocytes 1.7 Absolute Monocytes 0.6 Absolute Eosinophils 0.1 Absolute Basophils 0.0 Sodium 140.9 Potassium 4.0 Chloride 103 Carbon Dioxide 27 Anion Gap 11 BUN 12 Creatinine 0.77 Est GFR ( Amer) > 60 Est GFR (Non-Af Amer) > 60 Glucose 147 H Calcium 9.1 Magnesium 1.8 Total Bilirubin AST ALT Alkaline Phosphatase Total Protein Albumin [facility] 11/01/18 11/01/18 11/02/18 15:00 15:00 00:31 Creatine Kinase 129 109 CK-MB (CK-2) 0.53 Troponin I < 0.012 NT-Pro-B Natriuret Pep 11/02/18 11/02/18 11/02/18 00:31 06:05 06:05 Creatine Kinase 103 CK-MB (CK-2) 0.41 0.40 Troponin I < 0.012 < 0.012 NT-Pro-B Natriuret Pep 54 Impressions: Carotid Doppler Study 11/01/18 00:00 IMPRESSION: No flow significant stenosis of the carotid bifurcations. Antegrade pulsatile right vertebral artery flow is identified today. No left vertebral artery flow is identified today. This represents a change from 2016. Given symptoms dizziness, MRI brain and MRA exam carotid bifurcations of [place] recommended to evaluate for vertebrobasilar insufficiency Chest X-Ray 11/01/18 13:46 IMPRESSION: NO ACUTE RADIOGRAPHIC FINDING IN THE CHEST. Head CT 11/01/18 13:47 IMPRESSION: NORMAL BRAIN CT WITHOUT CONTRAST. EVIDENCE OF ACUTE STROKE: NO. Qualifiers - * PATIENT BEING DISCHARGED WITH ANY OF THE FOLLOWING DIAGNOSIS: No VTE patient discharged on overlapping Therapy?: Yes Plan Time Spent: Greater than 30 Minutes - Continues current medication Will refer to the vascular surgery We will try to schedule open MRI and MRA of the head and neck
[2018-11-02 13:46] LABS: CREATINE KINASE MB 0.35 ng/mL (<4.55)
[2018-11-02] MEDS ORDERED: GABAPENTIN 300 MG CAPSULE PO SCH (14:00)
[2018-11-02 14:27] LABS: TROPONIN I < 0.012 ng/mL
[2018-11-02 15:26] VITALS: BP 125/53
--- NOTE | 2018-11-02 22:09 | EKG REPORT ---
SEVERITY:- NORMAL ECG - SINUS RHYTHM : Confirmed by: Fabiola Snow 02-Nov-2018 22:08:32
--- NOTE | 2018-11-03 19:15 | XCELERA REPORT ---
[address] [address] Transthoracic Echocardiogram Report Name: TOMMY LUEVANO Age: 63 yrs Gender: Female : 1955 Patient Status: Inpatient Patient Location: [address] [place], [place] [address] Study Date: 11/01/2018 07:24 PM Height: 63 in Weight: 237 lb BSA: 2.1 m2 Procedure: A complete two-dimensional transthoracic echocardiogram was performed (2D, M-mode, spectral and color flow Doppler). The study was technically difficult with many images being suboptimal in quality. Reason For Study: chest pain Ordering Physician: JUSTINE LANDAVERDE Performed By: Jennifer Ley Interpretation Summary The left ventricular ejection fraction is within normal limits. LV diastolic function could not be adequately assessed. There is borderline concentric left ventricular hypertrophy. The left ventricle is grossly normal size. No regional wall motion abnormalities noted. The right ventricular systolic function is normal. The left atrial size is normal. The right atrium is normal in size There is a trace amount of mitral regurgitation There is no mitral valve stenosis. No aortic regurgitation is present. There is no aortic valve stenosis There is a trace amount of tricuspid regurgitation Tricuspid regurgitation jet envelope not well defined to measure RV systolic pressure accurately. The aortic root is not well visualized but is probably normal size. The inferior vena cava was not well visualized Minimal pericardial effusion. MMode/2D Measurements & Calculations RVDd: 2.6 cm LVIDd: 5.1 cm FS: 29.4 % Ao root diam: 2.3 cm IVSd: 0.85 cm LVIDs: 3.6 cm EDV(Teich): 122.0 ml Ao root area: 4.2 cm2 LVPWd: 0.94 cm ESV(Teich): 53.7 ml LA dimension: 3.3 cm EF(Teich): 56.0 % Doppler Measurements & Calculations MV E max rosendo: MV P1/2t max rosendo: Ao V2 max: LV V1 max P.6 cm/sec 142.5 cm/sec 153.1 cm/sec 7.0 mmHg MV A max rosendo: MV P1/2t: 62.2 msec Ao max P.4 mmHgLV V1 max: 123.4 cm/sec MVA(P1/2t): 3.5 cm2 132.7 cm/sec MV E/A: 0.79 MV dec slope: 671.3 cm/sec2 MV dec time: 0.22 sec PA V2 max: TR max rosendo: MV P1/2t-pr_phl: 109.9 cm/sec 271.5 cm/sec 62.2 msec PA max P.8 mmHgTR max P.5 mmHg Left Ventricle The left ventricle is grossly normal size. There is borderline concentric left ventricular hypertrophy. The left ventricular ejection fraction is within normal limits. LV diastolic function could not be adequately assessed. No regional wall motion abnormalities noted. Right Ventricle The right ventricle is grossly normal size. There is normal right ventricular wall thickness. The right ventricular systolic function is normal. Atria The right atrium is normal in size. The left atrial size is normal. Interarterial septum not well visualized and not well dopplered. Cannot comment on ASD/PFO presence. Mitral Valve The mitral valve is grossly normal. There is no mitral valve stenosis. There is a trace amount of mitral regurgitation. Aortic Valve The aortic valve is not well visualized secondary to technical limitations. There is no aortic valve stenosis. No aortic regurgitation is present. Tricuspid Valve The tricuspid valve is not well visualized secondary to technical limitations. There is no tricuspid stenosis. There is a trace amount of tricuspid regurgitation. Tricuspid regurgitation jet envelope not well defined to measure RV systolic pressure accurately. Pulmonic Valve The pulmonic valve is not well visualized. Great Vessels The aortic root is not well visualized but is probably normal size. The inferior vena cava was not well visualized. Effusions Minimal pericardial effusion. : JUSTINE LANDAVERDE > Fabiola Snow
== END 2018-11-02 15:53 | disposition home or self-care (01) | DRG 313 ==
LOC: ER 13:04 → EH 17:01 → 3N 21:05
PROVIDERS: ADMIT Family Medicine; ATTEND Family Medicine
DX: R07.89 Other chest pain (principal); R42 Dizziness and giddiness; R20.0 Anesthesia of skin; J44.9 Chronic obstructive pulmonary disease, unspecified; I10 Essential (primary) hypertension; K21.9 Gastro-esophageal reflux disease without esophagitis; F32.9 Major depressive disorder, single episode, unspecified; E11.9 Type 2 diabetes mellitus without complications; E78.5 Hyperlipidemia, unspecified; M06.9 Rheumatoid arthritis, unspecified; E27.9 Disorder of adrenal gland, unspecified; G47.30 Sleep apnea, unspecified; M79.7 Fibromyalgia; Z86.73 Personal history of transient ischemic attack (TIA), and cerebral infarction without residual deficits; Z88.8 Allergy status to other drugs, medicaments and biological substances; Z91.030 Bee allergy status; Z91.041 Radiographic dye allergy status; Z87.891 Personal history of nicotine dependence; Z79.899 Other long term (current) drug therapy; Z79.84 Long term (current) use of oral hypoglycemic drugs
CPT/HCPCS: 36415; 70450; 71045; 80048; 80053; 82550; 82553; 82962; 83735; 83880; 84443; 84484; 85025; 87040; 87086; 87088; 87186; 93005; 93010; 93306; 93880; 99285; J1650; J1815; J3490

== ENCOUNTER → 2019-01-23 | Outpatient (CLI) | payer BC, MEDICARE ==
--- NOTE | 2019-01-23 14:15 | RADIOLOGY REPORT (SQ) ---
EXAM DESCRIPTION: CT LUNG CANCER SCREENING COMPLETED DATE/TIME: 01/23/2019 2:01 pm REASON FOR STUDY: (Z87.891)PERSONAL HISTORY OF NICOTINE DEPENDENCE Z87.891 PERSONAL HISTORY OF CARLO LUANNE DEPENDENCE Has the patient had a Chest CT scan within the past year? Was the patient offered tobacco cessation counseling? Was the patient engaged in shared decision making for this test? Does the patient have signs or symptoms of Lung Cancer? Is the patient a smoker? How many pack years? How many years since quitting smoking? Patients age: COMPARISON: 11/24/2017 TECHNIQUE: Low Dose CT scan performed of the chest without intravenous contrast for purposes of scre ening for lung cancer. Images reviewed with lung, soft tissue and bone windows. Reconstructed coron al and sagittal MPR images reviewed. All images stored on PACS. All CT scanners at this facility use dose modulation, iterative reconstruction, and/or weight based d osing when appropriate to reduce radiation dose to as low as reasonably achievable (ALARA). [facility]: Dose Right [facility]: CareDose [facility]: Dose Right [facility]: Teradose 4D [facility]: [employer]ise Devices RADIATION DOSE: CT Rad equipment meets quality standard of care and radiation dose reduction techniq ues were employed. CTDIvol: NaN mGy. DLP: 0 mGy-cm. mGy. . LIMITATIONS: No technical limitations. FINDINGS: LUNGS AND PLEURA: No masses or nodules. No pleural effusions or calcifications. No pne umothorax. No scarring or interstitial changes. HILAR AND MEDIASTINAL STRUCTURES: No identified masses. No abnormal nodes. HEART AND VASCULAR STRUCTURES: No aortic aneurysm. No pericardial effusion. No cardiac devices. CORONARY ARTERY CALCIFICATIONS: No significant calcifications. UPPER ABDOMEN: Stable small left adrenal adenoma is noted. THYROID AND OTHER SOFT TISSUES: No masses. No adenopathy. BONY STRUCTURES: No significant finding. OTHER: No other significant findings. IMPRESSION: NO SIGNIFICANT FINDING ON NON-CONTRASTED CHEST CT. NO OTHER CLINICALLY SIGNIFICANT/POTENTIALLY CLINICALLY SIGNIFICANT FINDINGS LUNGRADS: LUNGRADS: 1 NEGATIVE. NO NODULES, OR DEFINITELY BENIGN NODULES MODIFIER: NONE RECOMMENDATION: Continue annual screening with LDCT in 12 months. COMMENT: CRITERIA: No lung nodules. Nodules with specific calcifications: Complete, central, popcorn, concentric rings and fat containin g nodules. TECHNICAL DOCUMENTATION: JOB ID: [id number] Quality ID # [id number]: Final reports with documentation of one or more dose reduction techniques (e.g., Au tomated exposure control, adjustment of the mA and/or kV according to patient size, use of iterative reconstruction technique) 2010 [facility] [place] Radiology Reading location - IP/workstation name: [email or web address]
== END ==
LOC: RAD 13:44
PROVIDERS: ATTEND Internal Medicine Pulmonary Disease
DX: Z87.891 Personal history of nicotine dependence (principal)
CPT/HCPCS: G0297

== ENCOUNTER → 2019-07-05 | Outpatient (CLI) | payer BC ==
--- NOTE | 2019-07-05 14:12 | WOMENS IMAGING REPORT ---
EXAM DESCRIPTION: 3D SCREENING MAMMO BILAT COMPLETED DATE/TIME: 07/05/2019 1:38 pm REASON FOR STUDY: Z12.31 SCREENING MAMMO Z12.31 ENCNTR SCREEN MAMMOGRAM FOR MALIGNANT NEOPLASM OF B RE COMPARISON: [id number] EXAM PARAMETERS: Standard craniocaudal and mediolateral oblique views of each breast recorded using digital acquisition and breast tomosynthesis. Read with the assistance of CAD. .[facility] - R2 Office Service Coordinator Version 9.2 LIMITATIONS: None. FINDINGS: Findings present which are benign by mammographic criteria. No suspicious masses, calcific ations or architectural distortion. Pertinent benign findings: Stable right architectural distortion status post benign biopsy. Benign mammographic findings may include one or more of the following: Smooth masses, popcorn/rim/coa rse calcifications, asymmetries, post-procedure changes, and lesions with long-standing stability. IMPRESSION: BENIGN MAMMOGRAPHIC FINDINGS. BIRADS 2 BREAST DENSITY: b. There are scattered areas of fibroglandular density. BIRAD: ASSESSMENT: 2 BENIGN FINDING(S) RECOMMENDATION: ROUTINE SCREENING COMMENT: The patient has been notified of the results by letter per SA requirements. Additional no tification policies are in place for contacting patient with suspicious or incomplete findings. Quality ID #225: The [employer] recommends an annual screening mammogram for women aged 40 years or over. This facility utilizes a reminder system to ensure that all patients receive reminder letters, and/or direct phone calls for appointments. This includes reminders for routine scr eening mammograms, diagnostic mammograms, or other Breast Imaging Interventions when appropriate. Th is patient will be placed in the appropriate reminder system. TECHNICAL DOCUMENTATION: FINDING NUMBER: (1) ASSESSMENT: (1) JOB ID: [id number] [employer]- All Rights Reserved Reading location - IP/workstation name: [email or web address]
== END ==
LOC: WI 13:15
PROVIDERS: ATTEND Surgery
DX: Z12.31 Encounter for screening mammogram for malignant neoplasm of breast (principal)
CPT/HCPCS: 77063; 77067

== ENCOUNTER → 2020-08-17 | Outpatient (CLI) | payer BC, MEDICARE ==
--- NOTE | 2020-08-17 16:42 | WOMENS IMAGING REPORT ---
EXAM DESCRIPTION: 3D SCREENING MAMMO BILAT IMAGES COMPLETED DATE/TIME: 08/17/2020 2:36 pm REASON FOR STUDY: Z12.31 ENCNTR SCREEN MAMMOGRAM FOR MALIGNANT NEOPLASM OF BREAST Z12.31 ENCNTR SCR EEN MAMMOGRAM FOR MALIGNANT NEOPLASM OF [place] COMPARISON: Multiple since 2011 EXAM PARAMETERS: Views: Standard craniocaudal and mediolateral oblique views of each breast recorded using digital acquisition and breast tomosynthesis. Read with the assistance of CAD. .[facility] - [employer] Integrated Specialist Version 9.2 LIMITATIONS: None. FINDINGS: No suspicious masses, suspicious calcifications or architectural distortion. No areas of c oncern. IMPRESSION: NEGATIVE MAMMOGRAM. BIRADS 1. BREAST DENSITY: b. There are scattered areas of fibroglandular density. BIRAD: ASSESSMENT: 1 NEGATIVE RECOMMENDATION: ROUTINE SCREENING COMMENT: The patient has been notified of the results by letter per MQSA requirements. Additional no tification policies are in place for contacting patient with suspicious or incomplete findings. Quality ID #225: The [employer] recommends an annual screening mammogram for women aged 40 years or over. This facility utilizes a reminder system to ensure that all patients receive reminder letters, and/or direct phone calls for appointments. This includes reminders for routine scr eening mammograms, diagnostic mammograms, or other Breast Imaging Interventions when appropriate. Th is patient will be placed in the appropriate reminder system. TECHNICAL DOCUMENTATION: FINDING NUMBER: (1) ASSESSMENT: (1) JOB ID: [id number] 2010 [employer]- All Rights Reserved Reading location - IP/workstation name: [email or web address]
== END ==
LOC: WI 14:08
PROVIDERS: ATTEND Physician Assistant
DX: Z12.31 Encounter for screening mammogram for malignant neoplasm of breast (principal)
CPT/HCPCS: 77063; 77067